=== PATIENT | female | born 1950 | race Caucasian/White ===

== ENCOUNTER → 2021-01-10 08:53 | Outpatient (CLI) | payer MEDICARE, OTHER, SELFPAY ==
--- NOTE | 2021-01-10 | DI.ECHO.S_ITS ---
[facility] +---------+ : : [address] : : : : [id number] : : : : Phone: [phone] Echocardiogram Report + + :Name: MAKENZIE COVARRUBIAS Study Date: 01/10/2021 Height: 65 in : :[facility] ReadingLocation: Weight: 197 lb : : Gender: Female BSA: 2.0 m2 : :: 1950 Age: 70 yrs BP: 151/97 mmHg: :Reason For Study: Aortic valve regurgitation : :Ordering Physician: STEPHANIE, : :JAMAR Performed By: Jaison Mohamud : :Referring: JMAAR BROWN : + + Interpretation Summary The left ventricle is normal in size and wall thickness. Left ventricular systolic function is normal. The ejection fraction is estimated to be 60-65%. There are no focal wall motion abnormalities. The right ventricle is normal in size and function. Pulmonary artery pressures cannot be estimated because of the lack of a measurable TR jet velocity but the IVC suggests a CVP of around 3 mmHg. The left atrium is borderline dilated. The right atrium is normal in size. There is no significant valvular heart disease. The aortic root is normal size. Procedure: A two-dimensional transthoracic echocardiogram with color flow and Doppler was performed. The study quality was technically adequate. There is no prior echocardiogram noted for this patient. The patient was in sinus rhythm with heart rates between 66-74 bpm during the exam. Left Ventricle: The left ventricle is normal in size and wall thickness. Left ventricular systolic function is normal. The ejection fraction is estimated to be 60-65%. There are no focal wall motion abnormalities. Diastolic function could not be accurately assessed due to contradictory data. Right Ventricle: The right ventricle is normal in size and function. Atria: The left atrium is borderline dilated. The right atrium is normal in size. There is no Doppler evidence for an interatrial shunt. Mitral Valve: There is mild to moderate mitral annular calcification. There is no mitral valve stenosis. There is trace mitral regurgitation. Aortic Valve: The aortic valve is normal in structure and function. There is trace aortic regurgitation. Tricuspid Valve: The tricuspid valve is normal in structure and function. There is a trace or physiologic amount of tricuspid regurgitation. Pulmonary artery pressures cannot be estimated because of the lack of a measurable TR jet velocity but the IVC suggests a CVP of around 3 mmHg. Pulmonic Valve: The pulmonic valve is not well visualized. There is no pulmonic valvular regurgitation. There is no significant valvular heart disease. Great Vessels: The aortic root is normal size. The ascending aorta could not be visualized. The IVC is of normal diameter and collapses greater than 50% with a sniff. This suggests a low right atrial pressure of 3 mm Hg. Pericardium/ Pleura There is no pericardial effusion. There is no pleural effusion. MMode/2D Measurements & Calculations LVIDd: 5.2 cm LVOT diam: 2.1 cm LVIDs: 3.7 cm Ao root diam: 2.8 cm FS: 28.6 % IVSd: 1.0 cm LVPWd: 1.0 cm LV lord. diameter/BSA (cm/m^2): 2.6 LV sys. diameter/BSA (cm/m^2): 1.9 LA A2 area: 22.1 cm2 RA long axis: 4.0 cm LA A4 area: 19.7 cm2 RA area: 10.9 cm2 LA length (vol): 5.9 cm RA vol: 25.0 ml LA vol: 62.5 ml RA : 12.7 ml/m2 LA vol index: 31.8 ml/m2 TAPSE: 1.9 cm Doppler Measurements & Calculations Ao V2 max: 185.1 cm/sec LVOT Max Dave: 121.9 cm/sec Ao V2 mean: 127.4 cm/sec LV V1 max P.9 mmHg Ao max P.7 mmHg LV V1 VTI: 26.9 cm Ao mean P.3 mmHg SHANTANU(I,D): 2.5 cm2 Ao V2 VTI: 38.1 cm SHANTANU(V,D): 2.4 cm2 sev ratio: 0.71 SHANTANU indexed to BSA (cm^2/m^2): 1.3 MV E max dave: 126.7 cm/sec PA pr(Accel): 21.6 mmHg MV A max dave: 150.8 cm/sec MV E/A: 0.84 Med Peak E' Dave: 6.1 cm/sec E/E' med: 20.8 Lat Peak E' Dave: 10.3 cm/sec E/E' lat: 12.3 E/e' average: 16.6 MV dec time: 0.36 sec MVA(VTI): 2.1 cm2 MV V2 mean: 101.2 cm/sec SV(LVOT): 96.7 ml MV mean P.5 mmHg MV V2 VTI: 46.8 cm MV P1/2t-pr_phl: 110.6 msec Reading Physician:01:51 PM
== END ==
PROVIDERS: PCP Family Medicine; Referring Provider Family Medicine; Visit Provider Family Medicine
DX: I35.1 Nonrheumatic aortic (valve) insufficiency (principal); R00.2 Palpitations; R42 Dizziness and giddiness; R01.1 Cardiac murmur, unspecified
CPT/HCPCS: 93306

== ENCOUNTER → 2021-03-31 15:35 | Outpatient (CLI) | payer MEDICARE, OTHER, SELFPAY ==
--- NOTE | 2021-03-31 15:38 | DI.US.S_ITS ---
PROCEDURE: US PERIPH VENOUS LOW EXTREM RT INDICATIONS: RULE OUT DVT TECHNIQUE: Real-time imaging, as well as color and pulse Doppler interrogation, were performed of the lower extremity deep veins from the inguinal ligament to the popliteal fossa. COMPARISON: None. FINDINGS: The common femoral, femoral and popliteal veins are normally compressible, and free of intraluminal thrombus. Color and pulse Doppler demonstrate normal phasic intraluminal flow. There is normal augmentation response to distal compression maneuver. Prominent right inguinal lymph no measures 2.5 x 1.3 x 1.4 cm in size is seen. Soft tissue edema in right calf region is noted. IMPRESSION: 1. No evidence of DVT in visualized right lower extremity veins. 2. Right calf edema. Prominent right inguinal lymph node which may represent reactive inflammatory lymph node. Dictated by: Marcus Jang M.D. on 03/31/2021 at 16:43 Approved by: Marcus Jang M.D. on 03/31/2021 at 16:43
== END ==
PROVIDERS: PCP Family Medicine; Referring Provider Physician Assistant; Visit Provider Physician Assistant
DX: R60.0 Localized edema (principal); R59.0 Localized enlarged lymph nodes
CPT/HCPCS: 93971

== ENCOUNTER → 2022-02-05 12:48 | Outpatient (CLI) | payer MEDICARE, OTHER, SELFPAY ==
--- NOTE | 2022-02-05 | DI.RAD.S_ITS ---
PROCEDURE: XR HIP W PEL IF DONE RT 2V INDICATIONS: Unspecified injury of right hip, subsequent encounter TECHNIQUE: AP pelvis with lateral view(s) of the right hip(s). COMPARISON: None. FINDINGS: Bones: Patient is status post bilateral total hip arthroplasty. Bilateral hip alignment is anatomic. No gross hardware loosening or failure. No acute fracture or dislocation. Degenerative disc disease in visualized lower lumbar spine is seen. Soft tissues: The visualized bowel gas pattern is normal. No suspicious soft tissue calcifications. IMPRESSION: Prior bilateral total hip arthroplasty. No right hip fracture or dislocation. No gross hardware complication. Dictated by: Marcus Jang M.D. on 02/05/2022 at 15:42 Approved by: Marcus Jang M.D. on 02/05/2022 at 15:43
== END ==
PROVIDERS: PCP Family Medicine; Referring Provider Student in an Organized Health Care Education/Training Program; Visit Provider Student in an Organized Health Care Education/Training Program
DX: M51.36 Other intervertebral disc degeneration, lumbar region (principal); S79.911D Unspecified injury of right hip, subsequent encounter; Z96.643 Presence of artificial hip joint, bilateral
CPT/HCPCS: 73502

== ENCOUNTER → 2022-02-12 14:07 | Outpatient (CLI) | payer MEDICARE, OTHER, SELFPAY ==
--- NOTE | 2022-02-12 | DI.CT.S_ITS ---
PROCEDURE: CT PEL WO CON INDICATIONS: Pain in right hip TECHNIQUE: Noncontrast 3 mm axial sections acquired through the bony pelvis, with coronal and sagittal reformatting. COMPARISON: [facility], CT, CT ABD PELVIS W CON, 02/04/2016, 18:13. [facility], CR, XR HIP W PEL IF DONE RT 2V, 02/05/2022, 12:56. FINDINGS: Image quality: Excellent. Bones: Postsurgical changes are seen from bilateral hip arthroplasties with associated metal artifact. No signs of hardware loosening or perihardware fracture. Hypertrophic ossifications are seen at the greater trochanter. A remote prior healed fracture is seen at the right inferior pubic ramus. Severe degenerative changes are seen in the included lower lumbar spine. There is a questionable fracture at the left transverse process of L5 (image 17 of series 2). Soft tissues: Chondrocalcinosis is noted at the pubic symphysis. No large joint effusion or periarticular mass is seen. There is severe fatty infiltration of the bilateral gluteus medius and minimus muscles. The musculature surrounding the hips is otherwise normal in bulk. IMPRESSION: 1. Postsurgical changes from bilateral hip arthroplasties. No acute hardware complication or perihardware fracture. No significant right hip effusion or periarticular mass. 2. Nondisplaced fracture of the left transverse process of the L5 vertebra seen on large [id number] axial images only, which is of uncertain age. Dictated by: Wade Power M.D. on 02/12/2022 at 15:45 Approved by: Wade Power M.D. on 02/12/2022 at 15:56
== END ==
PROVIDERS: PCP Family Medicine; Referring Provider Registered Nurse; Visit Provider Registered Nurse
DX: M25.551 Pain in right hip (principal); M11.259 Other chondrocalcinosis, unspecified hip; Z96.643 Presence of artificial hip joint, bilateral
CPT/HCPCS: 72192

== ENCOUNTER 2022-10-27 15:31 | Emergency (ER) | payer MEDICARE, OTHER, SELFPAY ==
[2022-10-27] VITALS (63 sets, daily range): BP systolic 90–130; BP diastolic 52–82; PULSE 55–177; RESP 11–30; TEMP 36.6; O2SAT 94–100; BMI 35.7
--- NOTE | 2022-10-27 15:50 | DI.RAD.S_ITS ---
PROCEDURE: XR CHEST 1V INDICATIONS: Shortness of breath TECHNIQUE: One view of the chest was acquired. COMPARISON: None. FINDINGS: Surgical changes and devices: None. Lungs and pleura: Lungs are clear. No pleural effusions or pneumothorax. Mediastinum: Mediastinal contours appear normal. Heart size is enlarged. Bones and chest wall: No suspicious bony lesions. Overlying soft tissues appear unremarkable. IMPRESSION: No acute cardiopulmonary process. Dictated by: Irving Blount M.D. on 10/27/2022 at 16:10 Approved by: Irving Blount M.D. on 10/27/2022 at 16:11
[2022-10-27 16:09] LABS: Add Manual Diff / Slide Review NO; Basophils Absolute Auto 100 /uL (0-100); Basophils Percent Auto 0.8 % (0-2); Eosinophils Absolute Auto 100 /uL (0-450); Eosinophils Percent Auto 1.5 % (2-4); Hematocrit 37.4 % (36-46); Hemoglobin 12.4 g/dL (12.0-16.0); Lymphocytes Absolute Auto 1000 /uL (1100-4500); Lymphocytes Percent Auto 13.8 % (25-40); Mean Corpuscular HGB Conc 33.2 % (30-36); Mean Corpuscular Hemoglobin 28.8 PG (26-34); Mean Corpuscular Volume 86.9 fL (80-100); Monocytes Absolute Auto 500 /uL (0-900); Monocytes Percent Auto 7.3 % (3-14); Neutrophils Absolute Auto 5400 /uL (1500-7000); Neutrophils Percent Auto 76.6 % (50-75); Platelet Count 198 X10^3/uL (150-400); White Blood Cell Count 7.1 X10^3/uL (4.5-11.0)
[2022-10-27 16:12] LABS: INR 1.6 (0.9-1.3); Prothrombin Time 18.1 SECONDS (10.1-12.7)
[2022-10-27 16:17] LABS: Lactate (Lactic Acid) 0.9 mmol/L (0.7-2.1)
[2022-10-27 16:18] LABS: Alanine Aminotransferase 22 IU/L (<35); Albumin 3.6 g/dL (3.5-5.0); Albumin Globulin Ratio 1.3 (1.0-2.8); Alkaline Phosphatase 55 U/L (38-126); Aspartate Aminotransferase 25 IU/L (14-36); BUN Creatinine Ratio 17.8 (6-22); Bilirubin Total 0.5 mg/dL (0.2-1.3); Blood Urea Nitrogen 23 mg/dL (7-17); Calcium 8.6 mg/dL (8.4-10.2); Carbon Dioxide 23 mmol/L (22-32); Chloride 106 mmol/L (98-107); Estimated Glomerular Filt Rate 44 mL/min (>60); Globulin 2.8 g/dL (1.7-4.1); Glucose 103 mg/dL (80-110); HEMOLYSIS < 15 (0-50); Potassium 4.5 mmol/L (3.4-5.1); Sodium 136 mmol/L (137-145); Total Protein 6.4 g/dL (6.3-8.2)
--- NOTE | 2022-10-27 16:20 | ED_ITS ---
HPI - General Adult General Chief complaint: Shortness of Breath/Dyspnea Stated complaint: wheezing, congestion, short of breath Time Seen by Provider: 10/27/22 15:44 Source: patient Mode of arrival: Ambulatory Limitations: no limitations History of Present Illness HPI narrative: Patient is a 72-year-old female. History of wheezing and congestion and shortness of breath. She does have a history of atrial fibrillation. She states she is not having chest pain. No lightheadedness. Does not specifically feel her heart beating fast. She does have a history of asthma. She has been using her inhalers at home. No fevers. Does have a productive cough. Patient is on anticoagulation. She states she is been on it for several years. Has not missed a dose in the past month. Takes it 2 times a day. Related Data Previous Rx's Medication Instructions Recorded albuterol sulfate 90 mcg/actuation 2 puff inhalation Q4-6H PRN 10/27/22 aerosol inhaler shortness of breath or wheezing #8.5 grams azithromycin 250 mg tablet See Rx Instructions PO .COMPLEX #6 10/27/22 tabs prednisone 20 mg tablet 20 mg PO DAILY 7 days #7 tabs 10/27/22 Allergies Allergy/AdvReac Type Severity Reaction Status Date / Time Penicillins Allergy Verified 10/27/22 16:03 Sulfa (Sulfonamide Allergy Verified 10/27/22 16:03 Antibiotics) Review of Systems Review of Systems ROS Unobtainable: All systems reviewed & are unremarkable except as noted in HPI and below Exam Initial Vital Signs Initial Vital Signs: Vital Signs Temperature 97.9 F 10/27/22 15:45 Pulse Rate 170 H 10/27/22 15:45 Respiratory Rate 16 10/27/22 15:45 Blood Pressure 129/70 10/27/22 15:45 Pulse Oximetry 98 10/27/22 15:45 Oxygen Delivery Method Room Air 10/27/22 15:45 Const General: cooperative, comfortable and No ill appearing HENNC Head: normal to inspection and normocephalic Resp Effort & Inspection: normal respiratory effort and tachypneic Auscultation: wheezes Cardio Rate: tachycardic Rhythm: abnormal rhythm GI Inspection: normal to inspection Skin General: no rashes or lesions noted Neuro General: patient alert and moves all extremities Extrem General: normal to inspection and capillary refill normal Procedures Cardioversion Consent Signed: Yes Indication: Atrial fibrillation Stability: Stable Number of attempts (shocks): 3 Joules used: 120, 150 and 200 Cardiac rhythm post-cardioversion: Sinus rhythm Procedural Sedation Consent signed: Yes Time out performed: Yes Indication: cardioversion ASA Class: III Mallampati Airway Classification: Class II Preparation: air sampling and monitoring applied, pulse oximeter, capnometry used, supplemental O2 applied, suction/airway equipment at bedside and IV secured Fentanyl: IV Fentanyl dose (mcg): 12 IV Propofol dose (mg): 60 Intraservice time/total sedation time (min): 15 ED Sedation Level: Moderate (Concious) Patient Tolerated Procedure: Well Complications: none Course Orders Ordered: ED Orders 10/27/22 15:50 XR chest 1V Stat EKG-12 Lead Stat Measure peak expiratory flow ONCE RT Consult Eval and Treat NOW 10/27/22 16:00 Complete Blood Count AUTO DIFF Stat Comprehensive Metabolic Panel Stat Lactate (Lactic Acid) Stat NT-proBNP (BNP-Adult 18+) Stat Prothrombin Time INR Stat Troponin I Stat 10/27/22 16:15 COVID19 -Nasal RAPID Stat 10/27/22 16:55 EKG-12 Lead Routine Albuterol (Albuterol 2.5 Mg/3 Ml Neb (Adult)) 2.5 mg INH [id number] PRN PRN Reason: Shortness Of Breath Last Admin: 10/27/22 17:02 Dose: 2.5 mg Documented By: SAT Sodium Chloride (Normal Saline 0.9%) 1,000 mls @ 125 mls/hr IV CONT BRICE Last Infusion: 10/27/22 17:24 Dose: 0 mls/hr Documented By: Admin: 10/27/22 16:30 Dose: 125 mls/hr Documented By: SPF Discontinued Medications Fentanyl (Fentanyl 100 Mcg/2 Ml Inj) 12.5 mcg IV NOW ONE Stop: 10/27/22 16:22 Last Admin: 10/27/22 16:43 Dose: 12.5 mcg Documented By: SPF Propofol (Propofol 200 Mg/20 Ml Vial) 100 mg 1 mg/kg (100 mg) IV NOW ONE Stop: 10/27/22 16:22 Last Admin: 10/27/22 17:22 Dose: 60 mg Documented By: BHARATI Vital Signs Vital signs: Vital Signs - 8 hr 10/27/22 15:45 10/27/22 17:07 10/27/22 17:12 Temperature 97.9 F Pulse Rate 170 H 166 H 57 L Respiratory Rate 16 20 16 Blood Pressure 129/70 Pulse Oximetry 98 100 Oxygen Delivery Method Room Air Nasal Cannula Oxygen Flow Rate 2 10/27/22 16:00 10/27/22 16:01 10/27/22 16:01 Temperature Pulse Rate 164 H 168 H Respiratory Rate 25 H Blood Pressure 128/67 Pulse Oximetry 97 97 Oxygen Delivery Method Room Air Oxygen Flow Rate 10/27/22 16:02 10/27/22 16:04 10/27/22 16:06 Temperature Pulse Rate 165 H 158 H 159 H Respiratory Rate 20 19 19 Blood Pressure Pulse Oximetry 97 95 96 Oxygen Delivery Method Oxygen Flow Rate 10/27/22 16:08 10/27/22 16:10 10/27/22 16:12 Temperature Pulse Rate 170 H 157 H 162 H Respiratory Rate 20 21 21 Blood Pressure Pulse Oximetry 96 96 96 Oxygen Delivery Method Room Air Oxygen Flow Rate 10/27/22 16:14 10/27/22 16:16 10/27/22 16:18 Temperature Pulse Rate 159 H 165 H 165 H Respiratory Rate 24 22 23 Blood Pressure Pulse Oximetry 97 97 96 Oxygen Delivery Method Oxygen Flow Rate 10/27/22 16:20 10/27/22 16:22 10/27/22 16:24 Temperature Pulse Rate 167 H 168 H 165 H Respiratory Rate 27 H 26 H 23 Blood Pressure Pulse Oximetry 97 96 96 Oxygen Delivery Method Room Air Oxygen Flow Rate 10/27/22 16:25 10/27/22 16:25 10/27/22 16:28 Temperature Pulse Rate 165 H 169 H Respiratory Rate 26 H 18 Blood Pressure 130/82 Pulse Oximetry 98 99 Oxygen Delivery Method Oxygen Flow Rate 10/27/22 16:30 10/27/22 16:30 10/27/22 16:32 Temperature Pulse Rate 157 H 164 H Respiratory Rate 23 28 H Blood Pressure 110/70 Pulse Oximetry 99 99 Oxygen Delivery Method Room Air Oxygen Flow Rate 10/27/22 16:34 10/27/22 16:35 10/27/22 16:35 Temperature Pulse Rate 167 H 152 H Respiratory Rate 22 19 Blood Pressure 97/66 Pulse Oximetry 99 99 Oxygen Delivery Method Oxygen Flow Rate 10/27/22 16:36 10/27/22 16:38 10/27/22 16:40 Temperature Pulse Rate 177 H 162 H Respiratory Rate 27 H 30 H Blood Pressure 104/72 Pulse Oximetry 97 97 Oxygen Delivery Method Room Air Oxygen Flow Rate 10/27/22 16:40 10/27/22 16:42 10/27/22 16:44 Temperature Pulse Rate 161 H 172 H Respiratory Rate 17 20 Blood Pressure 99/70 Pulse Oximetry 98 99 Oxygen Delivery Method Nasal Cannula Oxygen Flow Rate 2 10/27/22 16:44 10/27/22 16:46 10/27/22 16:47 Temperature Pulse Rate 165 H 156 H 105 H Respiratory Rate 15 16 20 Blood Pressure Pulse Oximetry 100 100 95 Oxygen Delivery Method Nasal Cannula Oxygen Flow Rate 2 10/27/22 16:47 10/27/22 16:48 10/27/22 16:49 Temperature Pulse Rate 172 H Respiratory Rate 19 Blood Pressure 99/56 L 95/59 L Pulse Oximetry 95 Oxygen Delivery Method Nasal Cannula Oxygen Flow Rate 2 10/27/22 16:49 10/27/22 16:50 10/27/22 16:52 Temperature Pulse Rate 102 H 55 L 57 L Respiratory Rate 20 17 17 Blood Pressure Pulse Oximetry 95 95 95 Oxygen Delivery Method Nasal Cannula Oxygen Flow Rate 2 10/27/22 16:53 10/27/22 16:54 10/27/22 16:56 Temperature Pulse Rate 61 Respiratory Rate 22 Blood Pressure 91/52 L 103/57 L Pulse Oximetry 97 Oxygen Delivery Method Nasal Cannula Oxygen Flow Rate 2 10/27/22 16:56 10/27/22 16:58 10/27/22 17:00 Temperature Pulse Rate 74 57 L Respiratory Rate 25 H 15 Blood Pressure 90/52 L Pulse Oximetry 98 99 Oxygen Delivery Method Oxygen Flow Rate 10/27/22 17:00 10/27/22 17:02 10/27/22 17:04 Temperature Pulse Rate 56 L 58 L 59 L Respiratory Rate 21 17 19 Blood Pressure Pulse Oximetry 100 100 100 Oxygen Delivery Method Nasal Cannula Nasal Cannula Room Air Oxygen Flow Rate 2 2 10/27/22 17:06 10/27/22 17:06 10/27/22 17:08 Temperature Pulse Rate 57 L 56 L Respiratory Rate 14 11 L Blood Pressure 95/54 L Pulse Oximetry 100 99 Oxygen Delivery Method Oxygen Flow Rate 10/27/22 17:10 10/27/22 17:10 10/27/22 17:20 Temperature Pulse Rate 56 L 64 Respiratory Rate 13 18 Blood Pressure 99/58 L Pulse Oximetry 100 98 Oxygen Delivery Method Room Air Oxygen Flow Rate 10/27/22 17:21 10/27/22 17:21 Temperature Pulse Rate 57 L Respiratory Rate 18 Blood Pressure 110/56 L Pulse Oximetry 99 Oxygen Delivery Method Room Air Oxygen Flow Rate Medical Decision Making Lab Data Lab results reviewed: Yes I reviewed the patient's lab results. 10/27/22 16:00 10/27/22 16:00 Labs: Lab Results 10/27/22 10/27/22 10/27/22 Range/Units 16:00 16:00 16:00 WBC 7.1 (4.5-11.0) X10^3/uL RBC 4.30 (4.0-5.2) X10^6/uL Hgb 12.4 (12.0-16.0) g/dL Hct 37.4 (36-46) % MCV 86.9 (80-100) fL MCH 28.8 (26-34) PG MCHC 33.2 (30-36) % RDW 15.0 H (11.6-14.8) % Plt Count 198 (150-400) X10^3/uL Neut % (Auto) 76.6 H (50-75) % Lymph % (Auto) 13.8 L (25-40) % [place] % (Auto) 7.3 (3-14) % Eos % (Auto) 1.5 L (2-4) % Baso % (Auto) 0.8 (0-2) % Neut # (Auto) 5400 (8945-1623) /uL Lymph # (Auto) 1000 L (5309-4048) /uL [place] # (Auto) 500 (0-900) /uL Eos # (Auto) 100 (0-450) /uL Baso # (Auto) 100 (0-100) /uL PT 18.1 H (10.1-12.7) SECONDS INR 1.6 H (0.9-1.3) Sodium 136 L (137-145) mmol/L Potassium 4.5 (3.4-5.1) mmol/L Chloride 106 (98-107) mmol/L Carbon Dioxide 23 (22-32) mmol/L BUN 23 H (7-17) mg/dL Creatinine 1.29 H (0.52-1.04) mg/dL Estimated GFR 44 L (>60) mL/min BUN/Creatinine Ratio 17.8 (6-22) Glucose 103 (80-110) mg/dL Lactate (0.7-2.1) mmol/L Calcium 8.6 (8.4-10.2) mg/dL Total Bilirubin 0.5 (0.2-1.3) mg/dL AST 25 (14-36) IU/L ALT 22 (<35) IU/L Alkaline Phosphatase 55 (38-126) U/L Troponin I < 0.012 (0.01-0.034) ng/mL NT-Pro-B Natriuret Pep 6650 H (<125) pg/mL Total Protein 6.4 (6.3-8.2) g/dL Albumin 3.6 (3.5-5.0) g/dL Globulin 2.8 (1.7-4.1) g/dL Albumin/Globulin Ratio 1.3 (1.0-2.8) SARS-CoV-2 (PCR) (Negative) 10/27/22 10/27/22 Range/Units 16:00 16:15 WBC (4.5-11.0) X10^3/uL RBC (4.0-5.2) X10^6/uL Hgb (12.0-16.0) g/dL Hct (36-46) % MCV (80-100) fL MCH (26-34) PG MCHC (30-36) % RDW (11.6-14.8) % Plt Count (150-400) X10^3/uL Neut % (Auto) (50-75) % Lymph % (Auto) (25-40) % [place] % (Auto) (3-14) % Eos % (Auto) (2-4) % Baso % (Auto) (0-2) % Neut # (Auto) (5966-0744) /uL Lymph # (Auto) (8844-8046) /uL [place] # (Auto) (0-900) /uL Eos # (Auto) (0-450) /uL Baso # (Auto) (0-100) /uL PT (10.1-12.7) SECONDS INR (0.9-1.3) Sodium (137-145) mmol/L Potassium (3.4-5.1) mmol/L Chloride (98-107) mmol/L Carbon Dioxide (22-32) mmol/L BUN (7-17) mg/dL Creatinine (0.52-1.04) mg/dL Estimated GFR (>60) mL/min BUN/Creatinine Ratio (6-22) Glucose (80-110) mg/dL Lactate 0.9 (0.7-2.1) mmol/L Calcium (8.4-10.2) mg/dL Total Bilirubin (0.2-1.3) mg/dL AST (14-36) IU/L ALT (<35) IU/L Alkaline Phosphatase (38-126) U/L Troponin I (0.01-0.034) ng/mL NT-Pro-B Natriuret Pep (<125) pg/mL Total Protein (6.3-8.2) g/dL Albumin (3.5-5.0) g/dL Globulin (1.7-4.1) g/dL Albumin/Globulin Ratio (1.0-2.8) SARS-CoV-2 (PCR) Negative (Negative) Point of Care Testing Test Results Not applicable Point of care testing: Point of Care Testing Test Results Not applicable Imaging Data Chest x-ray: Radiologist's Impression: PROCEDURE:? XR CHEST 1V ? INDICATIONS:? Shortness of breath ? TECHNIQUE:? One view of the chest was acquired.? ? COMPARISON:? None. ? FINDINGS:? ? Surgical changes and devices:? None.? ? Lungs and pleura:? Lungs are clear.? No pleural effusions or pneumothorax.? ? Mediastinum:? Mediastinal contours appear normal.? Heart size is enlarged.? ? Bones and chest wall:? No suspicious bony lesions.? Overlying soft tissues appear unremarkable.? ? IMPRESSION:? No acute cardiopulmonary process. ECG Data Attestation: I personally reviewed and interpreted this ECG as follows: Interpretation: Atrial fibrillation Ventricular rate 160 Normal QRS Normal QTC Nonspecific ST T wave changes Post cardioversion Sinus rhythm Ventricular rate is 60 PACs Normal QRS Normal QTC MDM Narrative Medical decision making narrative: Patient has bilateral wheezing. She is also in AFib with RVR. She is anticoagulated. Has been anticoagulated for the past month and longer. We discussed options to include rate control versus rhythm control. After this discussion the patient opted for cardioversion. She was sedated and cardioverted. She tolerated the procedure well. It did take 3 attempts in order for her to successfully remain in AFib. After the cardioversion she was given a nebulizer. States she does feel somewhat better. She has had a productive cough. Her chest x-ray is unremarkable. Given her presenting symptoms and the fact that she is had a productive cough and her underlying lung pathology of the plan abuse to put her on steroids for the next couple days. We will also treat with antibiotics. Will discharge patient home. Will hold on making any changes to her cardiac medications. She was given strict return precautions. She expressed understanding and agreement. Discharge Plan Departure Patient Disposition: Home Clinical Impression: Asthma with exacerbation, Atrial fibrillation Instructions: DI for Asthma -- Adult, DI for Cardioversion Activity Restrictions/Additional Instructions: I recommend that you continue to take all of your medications as directed. A prescription for an albuterol inhaler, steroids and an antibiotic was sent to the pharmacy of your choice. We start taking them as directed. I recommend you contact your primary doctor for follow-up. Return to the emergency department for new or worsening symptoms. Prescriptions: New prednisone 20 mg tablet 20 mg PO DAILY 7 Days Qty: 7 0RF azithromycin 250 mg tablet See Rx Instructions .ROUTE .COMPLEX Qty: 6 0RF Rx Instructions: For 250 mg dose pack: take 500 mg today (day 1), then 250 mg for 4 days (days 2-5) albuterol sulfate 90 mcg/actuation HFA aerosol inhaler 2 puff inhalation Q4-6H PRN (Reason: shortness of breath or wheezing) Qty: 8.5 0RF Referrals: Taco Antonio MD [Primary Care Provider] - Stand Alone Forms: Patient Portal/API
[2022-10-27 16:30] LABS: NT-proBNP (BNP-Adult 18+) 6650 pg/mL (<125); Troponin I < 0.012 ng/mL (0.01-0.034)
[2022-10-27] MEDS: SODIUM CHLORIDE 0.9% 1,000 ML 125 ML IV (16:30)
[2022-10-27] MEDS: fentaNYL 100 MCG/2 ML INJ 12.5 MCG IV (16:43)
[2022-10-27] MEDS: ALBUTEROL 2.5 MG/3 ML NEB (ADULT) INH (17:02)
[2022-10-27 17:20] LABS: COVID19 -Nasal RAPID Negative (Negative)
[2022-10-27] MEDS: propofoL 200 MG/20 ML VIAL 100 MG IV (17:22)
== END 2022-10-27 18:31 | disposition home or self-care (01) ==
PROVIDERS: Student in an Organized Health Care Education/Training Program; Emergency Provider Emergency Medicine; PCP Family Medicine
DX: J45.901 Unspecified asthma with (acute) exacerbation (principal); I48.91 Unspecified atrial fibrillation; Z79.01 Long term (current) use of anticoagulants; Z20.822 Contact with and (suspected) exposure to COVID-19
CPT/HCPCS: 36415; 71045; 80053; 83605; 83880; 84484; 85025; 85610; 87635; 92960; 93005; 94640; 96360; 99152; 99285; C9803; J2704; J3010; J7613

== ENCOUNTER 2022-11-14 07:35 | Emergency (ER) | payer MEDICARE, OTHER, SELFPAY ==
[2022-11-14] VITALS (34 sets, daily range): BP systolic 91–165; BP diastolic 54–113; PULSE 47–179; RESP 14–28; TEMP 36.1; O2SAT 93–100; BMI 36.2
--- NOTE | 2022-11-14 07:48 | DI.RAD.S_ITS ---
PROCEDURE: XR CHEST 1V INDICATIONS: SOB TECHNIQUE: One view of the chest was acquired. COMPARISON: [facility], CR, XR CHEST 1V, 10/27/2022, 15:56. FINDINGS: Surgical changes and devices: None. Lungs and pleura: Lungs are clear. No pleural effusions or pneumothorax. Mediastinum: Mediastinal contours appear normal. Unchanged cardiomegaly. Bones and chest wall: No suspicious bony lesions. Overlying soft tissues appear unremarkable. IMPRESSION: Unchanged cardiomegaly. No evidence acute pulmonary process. Dictated by: Walker Cade M.D. on 11/14/2022 at 8:10 Approved by: Walker Cade M.D. on 11/14/2022 at 8:11
--- NOTE | 2022-11-14 07:54 | ED_ITS ---
HPI - General Adult General Chief complaint: Shortness of Breath/Dyspnea Stated complaint: difficulty breathing Time Seen by Provider: 11/14/22 07:43 Source: patient Mode of arrival: Ambulatory History of Present Illness HPI narrative: 72-year-old female nonsmoker with history of asthma, AFib on Eliquis and recent cardioversion on October 27 presents with her in the chief complaint of increasing shortness of breath over the past day or so. She becomes more short of breath with exertion or speaking. She denies any increased shortness of breath while lying flat. She is a bit dizzy but denies nausea or vomiting. She has no chest pain or heaviness. She denies any fever, chills. She is had some dry cough but has had difficulty clearing sputum. She denies any change in her medications and has not missed any doses of her Eliquis at any point since it was prescribed Related Data Previous Rx's Medication Instructions Recorded albuterol sulfate 90 mcg/actuation 2 puff inhalation Q4-6H PRN 10/27/22 aerosol inhaler shortness of breath or wheezing #8.5 grams azithromycin 250 mg tablet See Rx Instructions PO .COMPLEX #6 10/27/22 tabs prednisone 20 mg tablet 20 mg PO DAILY #5 tabs 11/14/22 prednisone 20 mg tablet 20 mg PO DAILY #5 tabs 11/14/22 Allergies Allergy/AdvReac Type Severity Reaction Status Date / Time Penicillins Allergy Verified 11/14/22 07:52 Sulfa (Sulfonamide Allergy Verified 11/14/22 07:52 Antibiotics) Review of Systems Review of Systems Narrative: GENERAL: See HPI HEENT: Denies sinus pain, ear pain, sore throat, difficulty swallowing, dizziness. RESPIRATORY: See HPI CARDIOVASCULAR: See HPI GASTROINTESTINAL: Denies nausea, vomiting, abdominal pain, diarrhea, constipation, melena. : Denies dysuria, frequency, incontinence, hematuria, urinary retention. MUSCULOSKELETAL: denies weakness, joint pain, or bony pain SKIN: Denies rash, skin lesions, or other NEUROLOGIC: Denies weakness, headache, numbness, change in speech, confusion, seizures, incoordination. PSYCHIATRIC: No concerning psychosocial issues. 12 point review of systems is negative except for those stated above Patient History Social History Smoking Status: Never smoker Smoking Status: Never smoker alcohol intake frequency: holidays/special occasions only Substance Use Type: does not use Exam Narrative Exam Narrative: GENERAL: [72] year old patient appears stated age. Well-developed patient, in mild distress. HEAD: Atraumatic. Normocephalic. EYES: Pupils equal round and reactive. Extraocular motions intact. No scleral icterus. No injection or drainage. ENT: Nose without bleeding, purulent drainage. Throat without erythema, tonsillar hypertrophy or exudate. Airway patent. NECK: Trachea midline. Non tender CARDIOVASCULAR: Tachycardic and irregular rhythm without murmurs, gallops, or rubs. RESPIRATORY: Clear to auscultation. Breath sounds equal bilaterally. No wheezes, rales, or rhonchi. GASTROINTESTINAL: Abdomen soft, non-tender, nondistended. EXTREMITIES: No edema or joint tenderness. BACK: Nontender without deformity or crepitance. No flank tenderness. NEURO: AOx3. SKIN: No rash or erythema of visible areas Initial Vital Signs Initial Vital Signs: Vital Signs Pulse Rate 83 11/14/22 07:41 Pulse Oximetry 98 11/14/22 07:41 Procedures Cardioversion Consent Signed: Yes Indication: Rapid AFib Stability: Stable Number of attempts (shocks): 3 Joules used: 120, 150 and 200 Cardiac rhythm post-cardioversion: NSR with sinus arrhythmia Procedural Sedation Consent signed: Yes Time out performed: Yes Indication: cardioversion ASA Class: II Mallampati Airway Classification: Class II Preparation: rn cardiac rehab applied, pulse oximeter, capnometry used, suppl emental O2 applied, suction/airway equipment at bedside and IV secured IV Propofol dose (mg): 80 Intraservice time/total sedation time (min): 10 ED Sedation Level: Moderate (Concious) Patient Tolerated Procedure: Well Complications: none Course Orders Ordered: ED Orders 11/14/22 07:48 XR chest 1V Stat EKG-12 Lead Stat 11/14/22 07:55 Complete Blood Count AUTO DIFF Stat Comprehensive Metabolic Panel Stat Lipase Stat MAG [Magnesium] Stat NT-proBNP (BNP-Adult 18+) Stat Procalcitonin Stat Prothrombin Time INR Stat Troponin & CK Cardiac Panel Stat 11/14/22 08:51 EKG-12 Lead Routine Sodium Chloride (Normal Saline 0.9%) 1,000 mls @ 150 mls/hr IV CONT BRICE Last Admin: 11/14/22 07:57 Dose: 150 mls/hr Documented By: RB Discontinued Medications Albuterol/Ipratropium (Albuterol/Ipratropium 3 Ml Ampul) 3 ml INH NOW ONE Stop: 11/14/22 07:48 Last Admin: 11/14/22 10:20 Dose: 3 ml Aspirin (Aspirin 81 Mg Chew Tab) 324 mg PO NOW ONE Stop: 11/14/22 07:48 Last Admin: 11/14/22 08:01 Dose: 324 mg Documented By: AT Diltiazem HCl (Diltiazem 5 Mg/Ml Sdv) 20 mg IV NOW ONE Stop: 11/14/22 07:55 Last Admin: 11/14/22 08:02 Dose: 20 mg Documented By: AT Methylprednisolone (Methylprednisolone 125 Mg/2 Ml Vial) 125 mg IV NOW ONE Stop: 11/14/22 07:48 Last Admin: 11/14/22 10:19 Dose: 125 mg Propofol (Propofol 200 Mg/20 Ml Vial) 100 mg 1 mg/kg (100 mg) IV NOW ONE Stop: 11/14/22 08:19 Last Admin: 11/14/22 08:41 Dose: 80 mg Documented By: AT Reevaluation(s) Reevaluation #1: cardizem 20mg results in some decreased HR into the low 100s, still AFib. SOB improved. Patient consented for procedural sedation and cardioversion. Time: 08:35 Vital Signs Vital signs: Vital Signs - 8 hr 11/14/22 07:45 11/14/22 08:02 11/14/22 07:41 Temperature 97 F L Pulse Rate 115 H 179 H 83 Respiratory Rate 28 H Blood Pressure 165/113 H 148/93 H Pulse Oximetry 94 98 Oxygen Delivery Method Room Air Oxygen Flow Rate 11/14/22 07:57 11/14/22 07:57 11/14/22 08:00 Temperature Pulse Rate 178 H 178 H Respiratory Rate 22 19 Blood Pressure 147/79 H Pulse Oximetry 98 98 Oxygen Delivery Method Oxygen Flow Rate 11/14/22 08:01 11/14/22 08:01 11/14/22 08:07 Temperature Pulse Rate 176 H Respiratory Rate 22 Blood Pressure 148/93 H 133/85 Pulse Oximetry 98 Oxygen Delivery Method Oxygen Flow Rate 11/14/22 08:07 11/14/22 08:10 11/14/22 08:10 Temperature Pulse Rate 169 H 119 H Respiratory Rate 20 19 Blood Pressure 126/73 Pulse Oximetry 97 97 Oxygen Delivery Method Oxygen Flow Rate 11/14/22 08:15 11/14/22 08:15 11/14/22 08:20 Temperature Pulse Rate 102 H 99 H Respiratory Rate 18 18 Blood Pressure 117/59 L Pulse Oximetry 96 95 Oxygen Delivery Method Room Air Oxygen Flow Rate 11/14/22 08:20 11/14/22 08:25 11/14/22 08:25 Temperature Pulse Rate 107 H Respiratory Rate 19 Blood Pressure 99/64 134/79 Pulse Oximetry 96 Oxygen Delivery Method Room Air Oxygen Flow Rate 11/14/22 08:30 11/14/22 08:35 11/14/22 08:35 Temperature Pulse Rate 116 H 111 H Respiratory Rate 26 H 16 Blood Pressure 119/69 Pulse Oximetry 98 Oxygen Delivery Method Room Air Oxygen Flow Rate 11/14/22 08:40 11/14/22 08:40 11/14/22 08:45 Temperature Pulse Rate 116 H Respiratory Rate 24 Blood Pressure 117/61 105/57 L Pulse Oximetry 98 Oxygen Delivery Method Oxygen Flow Rate 11/14/22 08:45 11/14/22 08:50 11/14/22 08:50 Temperature Pulse Rate 56 L 69 Respiratory Rate 19 28 H Blood Pressure 97/55 L Pulse Oximetry 95 96 Oxygen Delivery Method Nasal Cannula Oxygen Flow Rate 3 11/14/22 08:56 11/14/22 08:56 11/14/22 09:00 Temperature Pulse Rate 50 L Respiratory Rate 22 Blood Pressure 91/54 L 94/62 Pulse Oximetry 98 Oxygen Delivery Method Room Air Oxygen Flow Rate 11/14/22 09:00 11/14/22 09:05 11/14/22 09:05 Temperature Pulse Rate 49 L 50 L Respiratory Rate 18 17 Blood Pressure 98/61 Pulse Oximetry 96 94 Oxygen Delivery Method Room Air Oxygen Flow Rate 11/14/22 09:10 11/14/22 09:10 11/14/22 10:21 Temperature Pulse Rate 48 L 49 L Respiratory Rate 18 16 Blood Pressure 102/63 Pulse Oximetry 93 99 Oxygen Delivery Method Room Air Room Air Oxygen Flow Rate 11/14/22 09:15 11/14/22 09:15 11/14/22 09:21 Temperature Pulse Rate 49 L 49 L Respiratory Rate 15 18 Blood Pressure 101/70 Pulse Oximetry 95 96 Oxygen Delivery Method Oxygen Flow Rate 11/14/22 09:21 11/14/22 09:26 11/14/22 09:26 Temperature Pulse Rate 47 L Respiratory Rate 15 Blood Pressure 99/69 106/62 Pulse Oximetry 97 Oxygen Delivery Method Oxygen Flow Rate 11/14/22 09:30 11/14/22 09:30 11/14/22 09:36 Temperature Pulse Rate 48 L 49 L Respiratory Rate 15 15 Blood Pressure 116/71 Pulse Oximetry 97 96 Oxygen Delivery Method Oxygen Flow Rate 11/14/22 09:36 11/14/22 09:40 11/14/22 09:40 Temperature Pulse Rate 48 L Respiratory Rate 15 Blood Pressure 110/63 109/66 Pulse Oximetry 95 Oxygen Delivery Method Oxygen Flow Rate 11/14/22 09:46 11/14/22 09:46 11/14/22 09:56 Temperature Pulse Rate 47 L 47 L Respiratory Rate 17 16 Blood Pressure 108/59 L Pulse Oximetry 96 97 Oxygen Delivery Method Oxygen Flow Rate 11/14/22 09:56 11/14/22 10:00 11/14/22 10:00 Temperature Pulse Rate 47 L Respiratory Rate 16 Blood Pressure 106/67 119/77 Pulse Oximetry 99 Oxygen Delivery Method Room Air Oxygen Flow Rate 11/14/22 10:13 11/14/22 10:13 11/14/22 10:15 Temperature Pulse Rate 56 L 52 L Respiratory Rate 23 17 Blood Pressure 111/60 Pulse Oximetry 95 99 Oxygen Delivery Method Oxygen Flow Rate 11/14/22 10:15 11/14/22 10:30 11/14/22 10:31 Temperature Pulse Rate 49 L 51 L Respiratory Rate 14 19 Blood Pressure 131/63 Pulse Oximetry 100 100 Oxygen Delivery Method Oxygen Flow Rate 11/14/22 10:31 Temperature Pulse Rate Respiratory Rate Blood Pressure 133/64 Pulse Oximetry Oxygen Delivery Method Oxygen Flow Rate Medical Decision Making Lab Data 11/14/22 07:55 11/14/22 07:55 Labs: Lab Results 11/14/22 11/14/22 11/14/22 Range/Units 07:55 07:55 07:55 WBC 7.8 (4.5-11.0) X10^3/uL RBC 4.55 (4.0-5.2) X10^6/uL Hgb 13.3 (12.0-16.0) g/dL Hct 40.0 (36-46) % MCV 87.9 (80-100) fL MCH 29.1 (26-34) PG MCHC 33.2 (30-36) % RDW 14.8 (11.6-14.8) % Plt Count 187 (150-400) X10^3/uL Neut % (Auto) 77.3 H (50-75) % Lymph % (Auto) 13.8 L (25-40) % [place] % (Auto) 6.8 (3-14) % Eos % (Auto) 1.4 L (2-4) % Baso % (Auto) 0.7 (0-2) % Neut # (Auto) 6000 (1469-5659) /uL Lymph # (Auto) 1100 (4590-6224) /uL [place] # (Auto) 500 (0-900) /uL Eos # (Auto) 100 (0-450) /uL Baso # (Auto) 100 (0-100) /uL PT 22.3 H (10.1-12.7) SECONDS INR 1.9 H (0.9-1.3) Sodium (137-145) mmol/L Potassium (3.4-5.1) mmol/L Chloride (98-107) mmol/L Carbon Dioxide (22-32) mmol/L BUN (7-17) mg/dL Creatinine (0.52-1.04) mg/dL Estimated GFR (>60) mL/min BUN/Creatinine Ratio (6-22) Glucose (80-110) mg/dL Calcium (8.4-10.2) mg/dL Magnesium (1.6-2.3) mg/dL Total Bilirubin (0.2-1.3) mg/dL AST (14-36) IU/L ALT (<35) IU/L Alkaline Phosphatase (38-126) U/L Total Creatine Kinase (30-135) U/L CK-MB (CK-2) CK-MB (CK-2) Rel Index Troponin I (0.01-0.034) ng/mL NT-Pro-B Natriuret Pep (<125) pg/mL Total Protein (6.3-8.2) g/dL Albumin (3.5-5.0) g/dL Globulin (1.7-4.1) g/dL Albumin/Globulin Ratio (1.0-2.8) Lipase (23-300) U/L Procalcitonin 0.06 (<0.5) ng/mL 11/14/22 11/14/22 Range/Units 07:55 07:55 WBC (4.5-11.0) X10^3/uL RBC (4.0-5.2) X10^6/uL Hgb (12.0-16.0) g/dL Hct (36-46) % MCV (80-100) fL MCH (26-34) PG MCHC (30-36) % RDW (11.6-14.8) % Plt Count (150-400) X10^3/uL Neut % (Auto) (50-75) % Lymph % (Auto) (25-40) % [place] % (Auto) (3-14) % Eos % (Auto) (2-4) % Baso % (Auto) (0-2) % Neut # (Auto) (1343-2108) /uL Lymph # (Auto) (7564-9399) /uL [place] # (Auto) (0-900) /uL Eos # (Auto) (0-450) /uL Baso # (Auto) (0-100) /uL PT (10.1-12.7) SECONDS INR (0.9-1.3) Sodium 140 (137-145) mmol/L Potassium 4.1 (3.4-5.1) mmol/L Chloride 107 (98-107) mmol/L Carbon Dioxide 26 (22-32) mmol/L BUN 29 H (7-17) mg/dL Creatinine 1.67 H (0.52-1.04) mg/dL Estimated GFR 32 L (>60) mL/min BUN/Creatinine Ratio 17.4 (6-22) Glucose 108 (80-110) mg/dL Calcium 9.0 (8.4-10.2) mg/dL Magnesium 2.0 (1.6-2.3) mg/dL Total Bilirubin 1.0 (0.2-1.3) mg/dL AST 35 (14-36) IU/L ALT 32 (<35) IU/L Alkaline Phosphatase 71 (38-126) U/L Total Creatine Kinase 73 (30-135) U/L CK-MB (CK-2) TNP CK-MB (CK-2) Rel Index TNP Troponin I 0.012 (0.01-0.034) ng/mL NT-Pro-B Natriuret Pep 60801 H (<125) pg/mL Total Protein 6.5 (6.3-8.2) g/dL Albumin 3.7 (3.5-5.0) g/dL Globulin 2.8 (1.7-4.1) g/dL Albumin/Globulin Ratio 1.3 (1.0-2.8) Lipase 125 (23-300) U/L Procalcitonin (<0.5) ng/mL Point of Care Testing Test Results Not applicable Point of care testing: Point of Care Testing Test Results Not applicable MDM Narrative Medical decision making narrative: CC: 72F with shortness of breath and rapid heart rate Complicating co-morbidities: Age, history of AFib Data collected from: Patient Medical records reviewed: Prior notes reviewed in our EMR Differential considered, but not limited to: Asthma versus COPD versus pneumonia versus rapid AFib versus CHF versus other Exam documented above, pertinent findings include: Tachycardic and irregular, some increased work of breathing though minimal, no wheezes, rales or rhonchi Lab Test results independently reviewed as above. Pertinent findings: Independently reviewed EKG as above Imaging studies independently reviewed: CXR without acute findings Treatments: ASA / Cardizem 20mg Re-evaluations: slowed but still in Afib, SOB is better Discussion: patient with increasing shortness of breath is found to be in a rapid atrial fibrillation. She is been taking her meds as directed and was given Cardizem that resulted in some rate control and associated symptomatic improvement but she remained elevated above her baseline heart rate and still in AFib. She was consented for procedural sedation and cardioversion which she tolerated well, after escalating shocks up to 200 joules she converted to a normal sinus rhythm initially in the upper 40s and then the upper 50s which is her baseline heart rate per prior visits. There are no lab abnormalities of note. She was ambulated about 1 hour after the cardioversion and did well though felt a little bit dizzy and a little bit short of breath desaturating to 88 or 89%. At this time she was given Solu-Medrol and respiratory therapy gave DuoNeb Disposition: see below, along with detailed discharge instructions that have been reviewed with patient as well as indications for ED re-evaluation and additional outpatient follow up Discharge Plan Departure Patient Disposition: Home Clinical Impression: Atrial fibrillation with RVR, Asthma exacerbation Instructions: Asthma -- Adult, DI for Atrial Fibrillation Activity Restrictions/Additional Instructions: *You have been diagnosed with [ rapid atrial fibrillation with procedural sedation (Propofol) and electrocardioversion] *What to do: *Please continue to take your regular medications as directed. [x ] Steroids sent to [facility] *Please follow up with your primary care provider in 2-3 days, call for an appointment. Let them know you were seen in the Emergency Department and that we ask that you be seen in follow up. We will electronically transmit a record of today's note if your PCP is in our system *Return to Emergency Department if you should have any new, worsening or concerning symptoms, such as [fever greater than 101 F, shaking chills, worsening pain, persistent vomiting or other bothersome symptoms] Prescriptions: New prednisone 20 mg tablet 20 mg PO DAILY Qty: 5 0RF Rx Instructions: administer with food or milk prednisone 20 mg tablet 20 mg PO DAILY Qty: 5 0RF Rx Instructions: administer with food or milk No Action azithromycin 250 mg tablet See Rx Instructions .ROUTE .COMPLEX Qty: 6 0RF Rx Instructions: For 250 mg dose pack: take 500 mg today (day 1), then 250 mg for 4 days (days 2-5) albuterol sulfate 90 mcg/actuation HFA aerosol inhaler 2 puff inhalation Q4-6H PRN (Reason: shortness of breath or wheezing) Qty: 8.5 0RF Referrals: Taco Antonio MD [Primary Care Provider] - Ignacia Goldberg DO [Physician] - Stand Alone Forms: Patient Portal/API
[2022-11-14] MEDS: SODIUM CHLORIDE 0.9% 1,000 ML 150 ML IV (07:57)
[2022-11-14] MEDS: ASPIRIN 81 MG CHEW TAB 324 MG PO (08:01)
[2022-11-14] MEDS: dilTIAZem 5 MG/ML SDV 20 MG IV (08:02)
[2022-11-14 08:08] LABS: Add Manual Diff / Slide Review NO; Basophils Absolute Auto 100 /uL (0-100); Basophils Percent Auto 0.7 % (0-2); Eosinophils Absolute Auto 100 /uL (0-450); Eosinophils Percent Auto 1.4 % (2-4); Hemoglobin 13.3 g/dL (12.0-16.0); Lymphocytes Absolute Auto 1100 /uL (1100-4500); Lymphocytes Percent Auto 13.8 % (25-40); Mean Corpuscular HGB Conc 33.2 % (30-36); Mean Corpuscular Hemoglobin 29.1 PG (26-34); Mean Corpuscular Volume 87.9 fL (80-100); Monocytes Absolute Auto 500 /uL (0-900); Monocytes Percent Auto 6.8 % (3-14); Neutrophils Absolute Auto 6000 /uL (1500-7000); Neutrophils Percent Auto 77.3 % (50-75); Platelet Count 187 X10^3/uL (150-400); Red Blood Cell Count 4.55 X10^6/uL (4.0-5.2); Red Cell Distribution Width 14.8 % (11.6-14.8); White Blood Cell Count 7.8 X10^3/uL (4.5-11.0)
[2022-11-14 08:12] LABS: INR 1.9 (0.9-1.3); Prothrombin Time 22.3 SECONDS (10.1-12.7)
[2022-11-14 08:16] LABS: Alanine Aminotransferase 32 IU/L (<35); Albumin 3.7 g/dL (3.5-5.0); Albumin Globulin Ratio 1.3 (1.0-2.8); Alkaline Phosphatase 71 U/L (38-126); Aspartate Aminotransferase 35 IU/L (14-36); BUN Creatinine Ratio 17.4 (6-22); Blood Urea Nitrogen 29 mg/dL (7-17); Carbon Dioxide 26 mmol/L (22-32); Chloride 107 mmol/L (98-107); Creatine Kinase 73 U/L (30-135); Estimated Glomerular Filt Rate 32 mL/min (>60); Globulin 2.8 g/dL (1.7-4.1); Glucose 108 mg/dL (80-110); HEMOLYSIS < 15 (0-50); Lipase 125 U/L (23-300); Potassium 4.1 mmol/L (3.4-5.1); Sodium 140 mmol/L (137-145); Total Protein 6.5 g/dL (6.3-8.2)
[2022-11-14 08:28] LABS: NT-proBNP (BNP-Adult 18+) 11900 pg/mL (<125); Troponin I 0.012 ng/mL (0.01-0.034)
[2022-11-14 08:34] LABS: Procalcitonin 0.06 ng/mL (<0.5)
[2022-11-14] MEDS: propofoL 200 MG/20 ML VIAL 100 MG IV (08:41)
[2022-11-14] MEDS: methylPREDNISolone 125 MG/2 ML VIAL IV (10:19)
[2022-11-14] MEDS: ALBUTEROL/IPRATROPIUM 3 ML AMPUL INH (10:20)
--- NOTE | 2022-11-14 10:25 | PC.NURSE ---
Pt assisted to bathroom. During ambulation became dixxy, light headed, and SOB w/ SPO2 88%. Dr. Guo informed.
== END 2022-11-14 11:00 | disposition home or self-care (01) ==
PROVIDERS: Emergency Provider Emergency Medicine; PCP Family Medicine
DX: I48.20 Chronic atrial fibrillation, unspecified (principal); Z79.01 Long term (current) use of anticoagulants; J45.901 Unspecified asthma with (acute) exacerbation
CPT/HCPCS: 36415; 71045; 80053; 82550; 83690; 83735; 83880; 84145; 84484; 85025; 85610; 92960; 93005; 94150; 94640; 96361; 96374; 96375; 99152; 99285; J2704; J2930

== ENCOUNTER → 2022-12-03 13:37 | Outpatient (CLI) | payer MEDICARE, OTHER, SELFPAY ==
--- NOTE | 2022-12-10 09:54 | PM.PFT.1 ---
Pulmonary Function Test Referral & Results Date Patient Seen: 12/03/22 Results: The spirometry demonstrates an FVC of 1.08 L which is 36% of predicted. The FEV1 was measured at 0.58 L which is 25% of predicted. The FEV1/FVC ratio was 54 which is 71% of predicted. Following the administration of bronchodilator there was a 57% improvement in FEV1 and a 220% improvement in FEF 25-75%. Lung volumes show an SVC of 2.33 L which is 80% of predicted. The diffusing capacity was measured at 16.45 which is 64% of predicted. No hemoglobin value was provided, so no correction for potential anemia could be made, if appropriate. The maximum voluntary ventilation was severely reduced Interpretation: This study demonstrates severe obstructive lung disease with FEV1 of less than 1 L. There is however evidence of significant benefit following bronchodilator as noted above The maybe a very mild reduction in lung volumes suggesting the possible presence of very mild restrictive lung disease There is also reduction in diffusing capacity suggesting moderate disease at the capillary alveolar level Clinical correlation suggested
== END ==
PROVIDERS: PCP Family Medicine; Referring Provider Student in an Organized Health Care Education/Training Program; Visit Provider Student in an Organized Health Care Education/Training Program
DX: R06.02 Shortness of breath (principal); J98.8 Other specified respiratory disorders
CPT/HCPCS: 94060; 94726; 94729

== ENCOUNTER 2022-12-21 17:35 | Inpatient (IN) | payer MEDICARE, OTHER, SELFPAY ==
[2022-12-21] VITALS (38 sets, daily range): BP systolic 91–137; BP diastolic 51–87; PULSE 71–144; RESP 14–26; TEMP 36.4–37.5; O2SAT 87–100; BMI 36.6
--- NOTE | 2022-12-21 18:07 | DI.RAD.S_ITS ---
PROCEDURE: XR CHEST 2V INDICATIONS: SOB TECHNIQUE: 2 views of the chest were acquired. COMPARISON: [facility], CR, XR CHEST 1V, 11/14/2022, 7:53. FINDINGS: Surgical changes and devices: None. Lungs and pleura: Lungs are clear. No pleural effusions or pneumothorax. Mediastinum: Mediastinal contours are normal. Heart size is enlarged. Bones and chest wall: No suspicious bony abnormalities. Soft tissues appear unremarkable. IMPRESSION: No acute process. Dictated by: Samuel Carrizales M.D. on 12/21/2022 at 18:46 Approved by: Samuel Carrizales M.D. on 12/21/2022 at 18:46
--- NOTE | 2022-12-21 18:14 | ED.EXTPRO ---
HPI - Extremity Problem General Chief complaint: Extremity Problem,Nontraumatic Stated complaint: eval heart function-medication dose new t-7 Time Seen by Provider: 12/21/22 18:05 Source: patient Mode of arrival: Wheelchair History of Present Illness HPI Narrative: 72-year-old female nonsmoker with history of asthma, atrial fibrillation on Eliquis and multiple recent cardioversions presents with her for evaluation at the request of her cardiology office. About 7 days ago she had her routine dosing of diltiazem doubled and soon thereafter she started developing increasing shortness of breath particularly with exertion and lying flat. She has swelling in both of her lower extremities and has gained upwards of 10 lb. She denies fever or chills. She denies runny nose, sore throat or cough. She states that she has been on Eliquis for 4 months or so and has not missed any doses. She states that she was just on ZIO patch and had been in AFib the majority of the time. Related Data Home Medications Medication Instructions Recorded Confirmed apixaban 5 mg tablet (Eliquis) 5 mg BID 12/21/22 12/21/22 diltiazem HCl 240 mg 240 mg PO BID 12/21/22 12/21/22 capsule,extended release 24 hr (Cardizem CD) escitalopram oxalate 5 mg tablet 5 mg PO DAILY 12/21/22 12/21/22 losartan 25 mg tablet 12.5 mg DAILY 12/21/22 12/21/22 Allergies Allergy/AdvReac Type Severity Reaction Status Date / Time Penicillins Allergy Verified 12/21/22 17:55 Sulfa (Sulfonamide Allergy Verified 12/21/22 17:55 Antibiotics) Review of Systems Review of Systems Narrative: GENERAL: Denies chills, fatigue, malaise, fever, sweats. HEENT: Denies sinus pain, ear pain, sore throat, difficulty swallowing, dizziness. RESPIRATORY: See HPI CARDIOVASCULAR: See HPI GASTROINTESTINAL: Denies nausea, vomiting, abdominal pain, diarrhea, constipation, melena. : Denies dysuria, frequency, incontinence, hematuria, urinary retention. MUSCULOSKELETAL: denies weakness, joint pain, or bony pain SKIN: Denies rash, skin lesions, or other NEUROLOGIC: Denies weakness, headache, numbness, change in speech, confusion, seizures, incoordination. PSYCHIATRIC: No concerning psychosocial issues. 12 point review of systems is negative except for those stated above Patient History Social History Smoking Status: Never smoker Smoking Status: Never smoker alcohol intake frequency: holidays/special occasions only Substance Use Type: does not use Exam Narrative Exam Narrative: GENERAL: [72] year old patient appears stated age. Well-developed patient, in mild distress. HEAD: Atraumatic. Normocephalic. EYES: Pupils equal round and reactive. Extraocular motions intact. No scleral icterus. No injection or drainage. ENT: Nose without bleeding, purulent drainage. Throat without erythema, tonsillar hypertrophy or exudate. Airway patent. NECK: Trachea midline. Non tender CARDIOVASCULAR: Tachycardic and irregular rhythm without murmurs, gallops, or rubs. RESPIRATORY: No significant work of breathing, faint crackles in bilateral bases GASTROINTESTINAL: Abdomen soft, non-tender, nondistended. EXTREMITIES: 2+ pitting edema bilateral lower extremities BACK: Nontender without deformity or crepitance. No flank tenderness. NEURO: AOx3. SKIN: No rash or erythema of visible areas Initial Vital Signs Initial Vital Signs: Vital Signs Temperature 99.2 F 12/21/22 17:55 Pulse Rate 103 H 12/21/22 17:55 Respiratory Rate 16 12/21/22 17:55 Blood Pressure 113/56 L 12/21/22 17:55 Pulse Oximetry 99 12/21/22 17:55 Oxygen Delivery Method Room Air 12/21/22 17:55 Procedures Cardioversion Consent Signed: Yes Indication: Rapid Afib Stability: Stable Number of attempts (shocks): 2 Joules used: 120 and 200 Cardiac rhythm post-cardioversion: AFib Procedural Sedation Consent signed: Yes Time out performed: Yes Indication: cardioversion Preparation: monitor car operator applied, pulse oximeter, capnometry used, supplemental O2 applied, suction/airway equipment at bedside and IV secured IV Propofol dose (mg): 80 Intraservice time/total sedation time (min): 12 ED Sedation Level: Moderate (Concious) Patient Tolerated Procedure: Well Complications: none Course Orders Ordered: ED Orders 12/21/22 18:06 EKG-12 Lead Stat 12/21/22 18:07 XR chest 2V Stat 12/21/22 18:17 Complete Blood Count AUTO DIFF Stat Comprehensive Metabolic Panel Stat Lactate (Lactic Acid) Stat Lipase Stat NT-proBNP (BNP-Adult 18+) Stat Procalcitonin Stat Prothrombin Time INR Stat Troponin & CK Cardiac Panel Stat 12/21/22 20:15 Blood Culture Stat 12/22/22 00:13 EC echo doppler complete Urgent Amiodarone HCl/Dextrose (Nexterone) 360 mg in 200 mls @ 16.7 mls/hr IV CONT BRICE; Protocol Stop: 12/22/22 12:20 Discontinued Medications Furosemide (Furosemide 40 Mg/4 Ml Vial) 40 mg IV NOW ONE Stop: 12/21/22 23:17 Last Admin: 12/21/22 23:47 Dose: 40 mg Documented By: SB Amiodarone HCl/Dextrose (Nexterone) 150 mg in 100 mls @ 600 mls/hr IV NOW ONE; Protocol Stop: 12/21/22 23:25 Last Admin: 12/22/22 00:15 Dose: Not Given Documented By: SB Amiodarone HCl/Dextrose (Nexterone) 150 mg in 100 mls @ 600 mls/hr IV NOW ONE; Protocol Stop: 12/21/22 23:59 Last Admin: 12/22/22 00:14 Dose: 200 mls/hr Documented By: SB Sodium Chloride (Normal Saline 0.9%) 500 mls @ 1,000 mls/hr IV BOLUS ONE Stop: 12/22/22 00:22 Last Infusion: 12/21/22 23:00 Dose: 0 mls/hr Documented By: Admin: 12/21/22 22:30 Dose: 1,000 mls/hr Documented By: SB Propofol (Propofol 200 Mg/20 Ml Vial) 100 mg 1 mg/kg (100 mg) IV NOW ONE Stop: 12/21/22 22:04 Last Admin: 12/21/22 22:25 Dose: 100 mg Documented By: BS Consultations Consultation #1: discussed with Dr. Giraldo (Cardiology). We share the opinion that she is appropriate for cardioversion, provided it is successful he recommends going back to prior dosing of Dilt along with diuresis Consultation #2: after failed electrocardioversion I called back, Dr. Giraldo recommends Amio load over 30 minutes followed by typical drip, diuresis, hospitalization, echo. Consultation #3: Dr. Jennings happy to accept patient on his service Vital Signs Vital signs: Vital Signs - 8 hr 12/21/22 17:55 12/21/22 18:09 12/21/22 18:12 Temperature 99.2 F Pulse Rate 103 H 71 Respiratory Rate 16 Blood Pressure 113/56 L 115/61 Pulse Oximetry 99 Oxygen Delivery Method Room Air Oxygen Flow Rate 12/21/22 18:12 12/21/22 18:40 12/21/22 19:00 Temperature Pulse Rate 128 H 103 H Respiratory Rate 19 18 Blood Pressure Pulse Oximetry 87 L 100 96 Oxygen Delivery Method Oxygen Flow Rate 12/21/22 19:30 12/21/22 19:52 12/21/22 19:52 Temperature Pulse Rate 97 H 99 H Respiratory Rate 16 17 Blood Pressure 137/78 Pulse Oximetry 96 98 Oxygen Delivery Method Room Air Oxygen Flow Rate 12/21/22 20:00 12/21/22 20:30 12/21/22 21:00 Temperature Pulse Rate 138 H 101 H 118 H Respiratory Rate 22 17 Blood Pressure Pulse Oximetry 98 98 98 Oxygen Delivery Method Oxygen Flow Rate 12/21/22 21:30 12/21/22 22:22 12/21/22 22:45 Temperature 99.5 F 97.6 F Pulse Rate 115 H 144 H 104 H Respiratory Rate 18 17 15 Blood Pressure 131/72 111/55 L Pulse Oximetry 97 97 96 Oxygen Delivery Method Room Air Oxygen Flow Rate 0 0 12/21/22 22:50 12/21/22 22:55 12/21/22 23:00 Temperature 98.5 F 98.3 F 98.6 F Pulse Rate 101 H 100 H 91 H Respiratory Rate 17 16 17 Blood Pressure 109/57 L 110/68 108/70 Pulse Oximetry 96 98 98 Oxygen Delivery Method Oxygen Flow Rate 0 0 0 12/21/22 23:05 12/21/22 21:39 12/21/22 21:39 Temperature 98.3 F Pulse Rate 100 H 109 H Respiratory Rate 18 Blood Pressure 115/57 L 127/78 Pulse Oximetry 98 97 Oxygen Delivery Method Oxygen Flow Rate 0 12/21/22 22:00 12/21/22 22:00 12/21/22 22:13 Temperature Pulse Rate 119 H 115 H Respiratory Rate 24 Blood Pressure 102/64 Pulse Oximetry 98 Oxygen Delivery Method Oxygen Flow Rate 12/21/22 22:13 12/21/22 22:15 12/21/22 22:15 Temperature Pulse Rate 137 H Respiratory Rate Blood Pressure 131/87 117/70 Pulse Oximetry Oxygen Delivery Method Room Air Oxygen Flow Rate 12/21/22 22:35 12/21/22 22:32 12/21/22 22:40 Temperature 98.4 F 98.4 F Pulse Rate 92 H 107 H 109 H Respiratory Rate 18 15 18 Blood Pressure 98/58 L 108/76 110/58 L Pulse Oximetry 95 96 96 Oxygen Delivery Method Oxygen Flow Rate 0 0 0 12/21/22 22:20 12/21/22 22:25 12/21/22 22:25 Temperature Pulse Rate 121 H Respiratory Rate Blood Pressure 131/72 96/51 L Pulse Oximetry 99 Oxygen Delivery Method Oxygen Flow Rate 12/21/22 22:26 12/21/22 22:26 12/21/22 22:28 Temperature Pulse Rate 129 H 130 H Respiratory Rate 18 19 Blood Pressure 91/59 L Pulse Oximetry 99 96 Oxygen Delivery Method Oxygen Flow Rate 12/21/22 22:28 12/21/22 22:30 12/21/22 22:30 Temperature Pulse Rate 113 H Respiratory Rate 18 Blood Pressure 95/55 L 95/68 Pulse Oximetry 95 Oxygen Delivery Method Oxygen Flow Rate 12/21/22 22:32 12/21/22 22:32 12/21/22 22:33 Temperature Pulse Rate 108 H 108 H Respiratory Rate 19 18 Blood Pressure 108/76 Pulse Oximetry 95 96 Oxygen Delivery Method Oxygen Flow Rate 12/21/22 22:33 12/21/22 22:35 12/21/22 22:35 Temperature Pulse Rate 109 H Respiratory Rate 17 Blood Pressure 92/65 98/58 L Pulse Oximetry 97 Oxygen Delivery Method Oxygen Flow Rate 12/21/22 22:41 12/21/22 22:41 12/21/22 22:45 Temperature Pulse Rate 99 H 93 H Respiratory Rate 14 20 Blood Pressure 110/58 L Pulse Oximetry 97 96 Oxygen Delivery Method Oxygen Flow Rate 12/21/22 22:45 12/21/22 22:50 12/21/22 22:50 Temperature Pulse Rate 98 H Respiratory Rate 15 Blood Pressure 111/55 L 109/57 L Pulse Oximetry 97 Oxygen Delivery Method Oxygen Flow Rate 12/21/22 22:55 12/21/22 22:55 12/21/22 23:00 Temperature Pulse Rate 101 H Respiratory Rate 19 Blood Pressure 110/68 108/70 Pulse Oximetry 98 Oxygen Delivery Method Oxygen Flow Rate 12/21/22 23:00 12/21/22 23:05 12/21/22 23:05 Temperature Pulse Rate 105 H 105 H Respiratory Rate 18 17 Blood Pressure 115/57 L Pulse Oximetry 98 98 Oxygen Delivery Method Oxygen Flow Rate 12/21/22 23:10 12/21/22 23:10 12/21/22 23:15 Temperature Pulse Rate 103 H Respiratory Rate 18 Blood Pressure 124/58 L 116/58 L Pulse Oximetry 98 Oxygen Delivery Method Oxygen Flow Rate 12/21/22 23:15 12/21/22 23:20 12/21/22 23:20 Temperature Pulse Rate 119 H 109 H Respiratory Rate 24 20 Blood Pressure 116/61 Pulse Oximetry 99 100 Oxygen Delivery Method Oxygen Flow Rate 12/21/22 23:30 12/21/22 23:30 12/21/22 23:35 Temperature Pulse Rate 109 H 114 H Respiratory Rate 23 26 H Blood Pressure 114/65 Pulse Oximetry 99 99 Oxygen Delivery Method Oxygen Flow Rate 12/21/22 23:35 12/21/22 23:41 12/21/22 23:41 Temperature Pulse Rate 114 H Respiratory Rate 23 Blood Pressure 106/60 112/57 L Pulse Oximetry 98 Oxygen Delivery Method Oxygen Flow Rate 12/21/22 23:45 12/21/22 23:45 12/22/22 00:00 Temperature Pulse Rate 128 H 142 H Respiratory Rate 19 Blood Pressure 110/74 Pulse Oximetry 98 98 Oxygen Delivery Method Oxygen Flow Rate 12/22/22 00:01 12/22/22 00:01 12/22/22 00:09 Temperature Pulse Rate 130 H 116 H Respiratory Rate 19 16 Blood Pressure 101/55 L Pulse Oximetry 99 97 Oxygen Delivery Method Oxygen Flow Rate 12/22/22 00:09 12/22/22 00:10 12/22/22 00:10 Temperature Pulse Rate 118 H Respiratory Rate 19 Blood Pressure 118/66 115/71 Pulse Oximetry 99 Oxygen Delivery Method Oxygen Flow Rate 12/22/22 00:15 12/22/22 00:15 Temperature Pulse Rate 117 H Respiratory Rate 19 Blood Pressure 106/59 L Pulse Oximetry 99 Oxygen Delivery Method Room Air Oxygen Flow Rate MDM - Extremity (Nontraumatic) Lab Data 12/21/22 18:17 12/21/22 18:17 Labs: Lab Results 12/21/22 12/21/22 12/21/22 Range/Units 18:17 18:17 18:17 WBC 7.8 (4.5-11.0) X10^3/uL RBC 4.03 (4.0-5.2) X10^6/uL Hgb 11.3 L (12.0-16.0) g/dL Hct 34.2 L (36-46) % MCV 84.9 (80-100) fL MCH 28.1 (26-34) PG MCHC 33.1 (30-36) % RDW 14.4 (11.6-14.8) % Plt Count 281 (150-400) X10^3/uL Neut % (Auto) 84.7 H (50-75) % Lymph % (Auto) 3.9 L (25-40) % [place] % (Auto) 7.0 (3-14) % Eos % (Auto) 3.1 (2-4) % Baso % (Auto) 1.3 (0-2) % Neut # (Auto) 6600 (0559-8104) /uL Lymph # (Auto) 300 L (3150-2995) /uL [place] # (Auto) 600 (0-900) /uL Eos # (Auto) 200 (0-450) /uL Baso # (Auto) 100 (0-100) /uL PT 18.8 H (10.1-12.7) SECONDS INR 1.6 H (0.9-1.3) Sodium 139 (137-145) mmol/L Potassium 4.1 (3.4-5.1) mmol/L Chloride 107 (98-107) mmol/L Carbon Dioxide 25 (22-32) mmol/L BUN 22 H (7-17) mg/dL Creatinine 1.33 H (0.52-1.04) mg/dL Estimated GFR 42 L (>60) mL/min BUN/Creatinine Ratio 16.5 (6-22) Glucose 135 H (80-110) mg/dL Lactate (0.7-2.1) mmol/L Calcium 8.9 (8.4-10.2) mg/dL Total Bilirubin 0.5 (0.2-1.3) mg/dL AST 24 (14-36) IU/L ALT 17 (<35) IU/L Alkaline Phosphatase 63 (38-126) U/L Total Creatine Kinase 50 (30-135) U/L CK-MB (CK-2) TNP CK-MB (CK-2) Rel Index TNP Troponin I < 0.012 (0.01-0.034) ng/mL NT-Pro-B Natriuret Pep (<125) pg/mL Total Protein 6.1 L (6.3-8.2) g/dL Albumin 3.4 L (3.5-5.0) g/dL Globulin 2.7 (1.7-4.1) g/dL Albumin/Globulin Ratio 1.3 (1.0-2.8) Lipase 127 (23-300) U/L Procalcitonin 0.05 (<0.5) ng/mL 12/21/22 12/21/22 Range/Units 18:17 18:17 WBC (4.5-11.0) X10^3/uL RBC (4.0-5.2) X10^6/uL Hgb (12.0-16.0) g/dL Hct (36-46) % MCV (80-100) fL MCH (26-34) PG MCHC (30-36) % RDW (11.6-14.8) % Plt Count (150-400) X10^3/uL Neut % (Auto) (50-75) % Lymph % (Auto) (25-40) % [place] % (Auto) (3-14) % Eos % (Auto) (2-4) % Baso % (Auto) (0-2) % Neut # (Auto) (0329-3679) /uL Lymph # (Auto) (0625-6016) /uL [place] # (Auto) (0-900) /uL Eos # (Auto) (0-450) /uL Baso # (Auto) (0-100) /uL PT (10.1-12.7) SECONDS INR (0.9-1.3) Sodium (137-145) mmol/L Potassium (3.4-5.1) mmol/L Chloride (98-107) mmol/L Carbon Dioxide (22-32) mmol/L BUN (7-17) mg/dL Creatinine (0.52-1.04) mg/dL Estimated GFR (>60) mL/min BUN/Creatinine Ratio (6-22) Glucose (80-110) mg/dL Lactate 1.2 (0.7-2.1) mmol/L Calcium (8.4-10.2) mg/dL Total Bilirubin (0.2-1.3) mg/dL AST (14-36) IU/L ALT (<35) IU/L Alkaline Phosphatase (38-126) U/L Total Creatine Kinase (30-135) U/L CK-MB (CK-2) CK-MB (CK-2) Rel Index Troponin I (0.01-0.034) ng/mL NT-Pro-B Natriuret Pep 3300 H (<125) pg/mL Total Protein (6.3-8.2) g/dL Albumin (3.5-5.0) g/dL Globulin (1.7-4.1) g/dL Albumin/Globulin Ratio (1.0-2.8) Lipase (23-300) U/L Procalcitonin (<0.5) ng/mL Point of Care Testing Test Results Not applicable Discharge Plan Departure Patient Disposition: Admitted As Inpatient Clinical Impression: Atrial fibrillation with RVR, Acute CHF Admit Date/Time: 12/22/22 00:15 Admit Provider: Chda Jennings
[2022-12-21 18:42] LABS: INR 1.6 (0.9-1.3); Prothrombin Time 18.8 SECONDS (10.1-12.7)
[2022-12-21 18:47] LABS: Alanine Aminotransferase 17 IU/L (<35); Albumin 3.4 g/dL (3.5-5.0); Albumin Globulin Ratio 1.3 (1.0-2.8); Alkaline Phosphatase 63 U/L (38-126); Aspartate Aminotransferase 24 IU/L (14-36); BUN Creatinine Ratio 16.5 (6-22); Bilirubin Total 0.5 mg/dL (0.2-1.3); Blood Urea Nitrogen 22 mg/dL (7-17); Calcium 8.9 mg/dL (8.4-10.2); Carbon Dioxide 25 mmol/L (22-32); Chloride 107 mmol/L (98-107); Creatine Kinase 50 U/L (30-135); Estimated Glomerular Filt Rate 42 mL/min (>60); Globulin 2.7 g/dL (1.7-4.1); Glucose 135 mg/dL (80-110); HEMOLYSIS < 15 (0-50); Lipase 127 U/L (23-300); Potassium 4.1 mmol/L (3.4-5.1); Sodium 139 mmol/L (137-145); Total Protein 6.1 g/dL (6.3-8.2)
[2022-12-21 18:48] LABS: Add Manual Diff / Slide Review NO; Basophils Absolute Auto 100 /uL (0-100); Basophils Percent Auto 1.3 % (0-2); Eosinophils Absolute Auto 200 /uL (0-450); Eosinophils Percent Auto 3.1 % (2-4); Hematocrit 34.2 % (36-46); Hemoglobin 11.3 g/dL (12.0-16.0); Lactate (Lactic Acid) 1.2 mmol/L (0.7-2.1); Lymphocytes Absolute Auto 300 /uL (1100-4500); Lymphocytes Percent Auto 3.9 % (25-40); Mean Corpuscular HGB Conc 33.1 % (30-36); Mean Corpuscular Hemoglobin 28.1 PG (26-34); Mean Corpuscular Volume 84.9 fL (80-100); Monocytes Absolute Auto 600 /uL (0-900); Neutrophils Absolute Auto 6600 /uL (1500-7000); Neutrophils Percent Auto 84.7 % (50-75); Platelet Count 281 X10^3/uL (150-400); Red Blood Cell Count 4.03 X10^6/uL (4.0-5.2); Red Cell Distribution Width 14.4 % (11.6-14.8); White Blood Cell Count 7.8 X10^3/uL (4.5-11.0)
[2022-12-21 18:56] LABS: NT-proBNP (BNP-Adult 18+) 3300 pg/mL (<125)
[2022-12-21 18:59] LABS: Troponin I < 0.012 ng/mL (0.01-0.034)
[2022-12-21 19:04] LABS: Procalcitonin 0.05 ng/mL (<0.5)
[2022-12-21] MEDS: propofoL 200 MG/20 ML VIAL 100 MG IV (22:25)
[2022-12-21] MEDS: SODIUM CHLORIDE 0.9% 500 ML 1000 ML IV (22:30)
[2022-12-21] MEDS: FUROSEMIDE 40 MG/4 ML VIAL IV (23:47)
[2022-12-22] VITALS (45 sets, daily range): BP systolic 68–138; BP diastolic 46–91; PULSE 95–182; RESP 12–33; TEMP 36.7–37; O2SAT 90–100; BMI 36.5
--- NOTE | 2022-12-22 00:13 | DI.ECHO.S_ITS ---
[facility]---------+ [facility] +---------+ : : [address] : : : : [id number] : : : : Phone: [phone]+ Echocardiogram Report + + :Name: MAKENZIE COVARRUBIAS Study Date: 12/22/2022 Height: 65 in : :[facility] ReadingLocation: Weight: 220 lb : : Gender: Female BSA: 2.1 m2 : :: 1950 Age: 72 yrs BP: 110/64 mmHg: :Reason For Study: ATRIAL FIBRILLATION : :Ordering Physician: SUSY, : :DELILAH Performed By: Arminda Daniel : :Referring: DELILAH JAIN : + + Interpretation Summary A-fib with rapid ventricular rate. Heart rate fluctuated between 104-114 bpm during exam. Normal LV size and wall thickness. There is global hypokinesis with ejection fraction of 30-35%. Severe left enlargement, mild right atrial enlargement and mild right ventricular enlargement with mildly reduced RV function. Moderate mitral annular calcification with mild associated mitral regurgitation. Mild aortic regurgitation. Estimated PA systolic pressure is 30 mm hg assuming RA pressure of 8 mm Hg. Compared to prior study 01/10/2021 afib is new and cardiomyopathy is new. Procedure: A two-dimensional transthoracic echocardiogram with color flow and Doppler was performed. The study quality was technically adequate. Comparison is made with the echocardiogram of 01/10/2021. The patient was in atrial fibrillation with heart rates between 101-136 bpm during the exam. Left Ventricle: The left ventricle is normal in size and wall thickness. The ejection fraction is estimated to be 30-35%. Diastolic function could not be accurately assessed due to atrial fibrillation. Right Ventricle: The right ventricle is mildly dilated. Right ventricular systolic function is mildly reduced. Atria: The left atrium is moderately dilated. The right atrium is mildly dilated. Mitral Valve: The mitral valve leaflets appear normal. There is no evidence of stenosis, fluttering, or prolapse. There is moderate mitral annular calcification. There is mild mitral regurgitation. Aortic Valve: The aortic valve is trileaflet. The aortic valve opens well. There is mild aortic valve sclerosis. There is no aortic valve stenosis. There is mild aortic regurgitation. Tricuspid Valve: The tricuspid valve is normal in structure and function. There is mild tricuspid regurgitation. The right ventricular systolic pressure is estimated to be at least 30 mmHg based on an estimated right atrial pressure of 8 mm Hg. Pulmonic Valve: The pulmonic valve is not well seen, but is grossly normal. There is no pulmonic valvular regurgitation. Great Vessels: The aortic root is normal size. The dimensions of the ascending aorta are normal. The IVC is dilated (diameter is greater than 2.1 cm) yet it collapses greater than 50% with a sniff. This suggests a right atrial pressure of 8 mm Hg. Pericardium/ Pleura There is no pericardial effusion. There is no pleural effusion. MMode/2D Measurements & Calculations LVIDd: 4.9 cm LVOT diam: 2.0 cm LVIDs: 4.3 cm Ao root diam: 2.8 cm FS: 13.1 % asc Aorta Diam: 3.4 cm IVSd: 0.75 cm Ao Arch Diam (Prox Trans): 2.6 cm LVPWd: 0.72 cm LV lord. diameter/BSA (cm/m^2): 2.4 LV sys. diameter/BSA (cm/m^2): 2.1 LA A2 area: 26.9 cm2 RA long axis: 5.0 cm LA A4 area: 24.7 cm2 RA area: 21.3 cm2 LA length (vol): 6.0 cm RA vol: 77.5 ml LA vol: 94.5 ml RA : 37.6 ml/m2 LA vol index: 45.9 ml/m2 IVC diam: 2.5 cm RVD1 (basal): 4.0 cm RVD2 (mid): 3.9 cm TAPSE: 1.4 cm Doppler Measurements & Calculations Ao V2 max: 182.3 cm/sec LVOT Max Dave: 88.5 cm/sec Ao V2 mean: 126.1 cm/sec LV V1 max P.2 mmHg Ao max P.3 mmHg LV V1 VTI: 14.5 cm Ao mean P.0 mmHg SHANTANU(I,D): 1.3 cm2 Ao V2 VTI: 32.3 cm SHANTANU(V,D): 1.5 cm2 sev ratio: 0.45 SHANTANU indexed to BSA (cm^2/m^2): 0.65 MV E max dave: 148.8 cm/sec TR max dave: 236.7 cm/sec MV A max dave: 1.5 cm/sec TR max P.4 mmHg MV E/A: 98.0 PA pr(Accel): 36.2 mmHg Med Peak E' Dave: 6.1 cm/sec E/E' med: 24.5 Lat Peak E' Dave: 8.6 cm/sec E/E' lat: 17.3 E/e' average: 20.9 MV dec time: 0.16 sec SV(DAVEOT): 43.6 ml Electronically signed by: Tierra Camarena M.D. on Reading Physician:12/22/2022 02:17 PM
[2022-12-22] MEDS: AMIODARONE 150 MG/100 ML PIGGYBACK 200 MG IV (00:14)
[2022-12-22] MEDS: AMIODARONE 360 MG/200 ML PIGGYBACK 33.3 MG IV (01:06)
--- NOTE | 2022-12-22 01:16 | PM.HP.1 ---
History of Present Illness History of Present Illness Date Patient Seen: 12/22/22 Time Patient Seen: 00:30 Chief complaint: eval heart function-medication dose new t-7 Narrative: Ms. Nelson is a 72W with PMH afib, hypertension who presents to the hospital with fluid retention, shortness of breath. She has a known history of afib. She has been cardioverted last time in October. Between then and today she flipped back into afib. She notes that her cashier and waiter/waitress doubled her diltiazem dose in response. She has been taking this dose for the last week. Within the same time period she has worsening lower extremity swelling, dyspnea with exertion and orthopnea. No chest pain. No fevers/chills. No cough. In the ED workup was done, vitals notable for afebrile, heart rate 100s-130s, blood pressure 110s/50s. Sats 99% on room air. Labs reviewed by me and notable for WBC 7.8, hgb 11.3. BUN 22, creatinine 1.33. Trop negative. Procal 0.05. BNP 3300. Chest xray reviewed by me and notable for cardiomegaly and pleural effusion. Her cardiology group was called and recommended cardioversion, this was attempted x3 and unsuccessful. She was ordered for lasix and amiodarone drip and admitted for further treatment. ON LICENSE OF [facility] Social History Smoking Status: Never smoker Meds Home Medications and Allergies Home Medications Medication Instructions Recorded Confirmed Type apixaban 5 mg tablet (Eliquis) 5 mg BID 12/21/22 12/21/22 History diltiazem HCl 240 mg 240 mg PO BID 12/21/22 12/21/22 History capsule,extended release 24 hr (Cardizem CD) escitalopram oxalate 5 mg tablet 5 mg PO DAILY 12/21/22 12/21/22 History losartan 25 mg tablet 12.5 mg DAILY 12/21/22 12/21/22 History Allergies Allergy/AdvReac Type Severity Reaction Status Date / Time Penicillins Allergy Verified 12/21/22 17:55 Sulfa (Sulfonamide Allergy Verified 12/21/22 17:55 Antibiotics) Review of Systems Review of Systems Narrative: 14 systems reviewed and negative aside from what is noted in HPI Exam Vital Signs (past 8 hours): - 12/21/22 17:55 12/21/22 18:09 12/21/22 18:12 Temperature 99.2 F Pulse Rate 103 H 71 Respiratory Rate 16 Blood Pressure 113/56 L 115/61 Pulse Oximetry 99 Oxygen Delivery Method Room Air Oxygen Flow Rate 12/21/22 18:12 12/21/22 18:40 12/21/22 19:00 Temperature Pulse Rate 128 H 103 H Respiratory Rate 19 18 Blood Pressure Pulse Oximetry 87 L 100 96 Oxygen Delivery Method Oxygen Flow Rate 12/21/22 19:30 12/21/22 19:52 12/21/22 19:52 Temperature Pulse Rate 97 H 99 H Respiratory Rate 16 17 Blood Pressure 137/78 Pulse Oximetry 96 98 Oxygen Delivery Method Room Air Oxygen Flow Rate 12/21/22 20:00 12/21/22 20:30 12/21/22 21:00 Temperature Pulse Rate 138 H 101 H 118 H Respiratory Rate 22 17 Blood Pressure Pulse Oximetry 98 98 98 Oxygen Delivery Method Oxygen Flow Rate 12/21/22 21:30 12/21/22 22:22 12/21/22 22:45 Temperature 99.5 F 97.6 F Pulse Rate 115 H 144 H 104 H Respiratory Rate 18 17 15 Blood Pressure 131/72 111/55 L Pulse Oximetry 97 97 96 Oxygen Delivery Method Room Air Oxygen Flow Rate 0 0 12/21/22 22:50 12/21/22 22:55 12/21/22 23:00 Temperature 98.5 F 98.3 F 98.6 F Pulse Rate 101 H 100 H 91 H Respiratory Rate 17 16 17 Blood Pressure 109/57 L 110/68 108/70 Pulse Oximetry 96 98 98 Oxygen Delivery Method Oxygen Flow Rate 0 0 0 12/21/22 23:05 12/21/22 21:39 12/21/22 21:39 Temperature 98.3 F Pulse Rate 100 H 109 H Respiratory Rate 18 Blood Pressure 115/57 L 127/78 Pulse Oximetry 98 97 Oxygen Delivery Method Oxygen Flow Rate 0 12/21/22 22:00 12/21/22 22:00 12/21/22 22:13 Temperature Pulse Rate 119 H 115 H Respiratory Rate 24 Blood Pressure 102/64 Pulse Oximetry 98 Oxygen Delivery Method Oxygen Flow Rate 12/21/22 22:13 12/21/22 22:15 12/21/22 22:15 Temperature Pulse Rate 137 H Respiratory Rate Blood Pressure 131/87 117/70 Pulse Oximetry Oxygen Delivery Method Room Air Oxygen Flow Rate 12/21/22 22:35 12/21/22 22:32 12/21/22 22:40 Temperature 98.4 F 98.4 F Pulse Rate 92 H 107 H 109 H Respiratory Rate 18 15 18 Blood Pressure 98/58 L 108/76 110/58 L Pulse Oximetry 95 96 96 Oxygen Delivery Method Oxygen Flow Rate 0 0 0 12/21/22 22:20 12/21/22 22:25 12/21/22 22:25 Temperature Pulse Rate 121 H Respiratory Rate Blood Pressure 131/72 96/51 L Pulse Oximetry 99 Oxygen Delivery Method Oxygen Flow Rate 12/21/22 22:26 12/21/22 22:26 12/21/22 22:28 Temperature Pulse Rate 129 H 130 H Respiratory Rate 18 19 Blood Pressure 91/59 L Pulse Oximetry 99 96 Oxygen Delivery Method Oxygen Flow Rate 12/21/22 22:28 12/21/22 22:30 12/21/22 22:30 Temperature Pulse Rate 113 H Respiratory Rate 18 Blood Pressure 95/55 L 95/68 Pulse Oximetry 95 Oxygen Delivery Method Oxygen Flow Rate 12/21/22 22:32 12/21/22 22:32 12/21/22 22:33 Temperature Pulse Rate 108 H 108 H Respiratory Rate 19 18 Blood Pressure 108/76 Pulse Oximetry 95 96 Oxygen Delivery Method Oxygen Flow Rate 12/21/22 22:33 12/21/22 22:35 12/21/22 22:35 Temperature Pulse Rate 109 H Respiratory Rate 17 Blood Pressure 92/65 98/58 L Pulse Oximetry 97 Oxygen Delivery Method Oxygen Flow Rate 12/21/22 22:41 12/21/22 22:41 12/21/22 22:45 Temperature Pulse Rate 99 H 93 H Respiratory Rate 14 20 Blood Pressure 110/58 L Pulse Oximetry 97 96 Oxygen Delivery Method Oxygen Flow Rate 12/21/22 22:45 12/21/22 22:50 12/21/22 22:50 Temperature Pulse Rate 98 H Respiratory Rate 15 Blood Pressure 111/55 L 109/57 L Pulse Oximetry 97 Oxygen Delivery Method Oxygen Flow Rate 12/21/22 22:55 12/21/22 22:55 12/21/22 23:00 Temperature Pulse Rate 101 H Respiratory Rate 19 Blood Pressure 110/68 108/70 Pulse Oximetry 98 Oxygen Delivery Method Oxygen Flow Rate 12/21/22 23:00 12/21/22 23:05 12/21/22 23:05 Temperature Pulse Rate 105 H 105 H Respiratory Rate 18 17 Blood Pressure 115/57 L Pulse Oximetry 98 98 Oxygen Delivery Method Oxygen Flow Rate 12/21/22 23:10 12/21/22 23:10 12/21/22 23:15 Temperature Pulse Rate 103 H Respiratory Rate 18 Blood Pressure 124/58 L 116/58 L Pulse Oximetry 98 Oxygen Delivery Method Oxygen Flow Rate 12/21/22 23:15 12/21/22 23:20 12/21/22 23:20 Temperature Pulse Rate 119 H 109 H Respiratory Rate 24 20 Blood Pressure 116/61 Pulse Oximetry 99 100 Oxygen Delivery Method Oxygen Flow Rate 12/21/22 23:30 12/21/22 23:30 12/21/22 23:35 Temperature Pulse Rate 109 H 114 H Respiratory Rate 23 26 H Blood Pressure 114/65 Pulse Oximetry 99 99 Oxygen Delivery Method Oxygen Flow Rate 12/21/22 23:35 12/21/22 23:41 12/21/22 23:41 Temperature Pulse Rate 114 H Respiratory Rate 23 Blood Pressure 106/60 112/57 L Pulse Oximetry 98 Oxygen Delivery Method Oxygen Flow Rate 12/21/22 23:45 12/21/22 23:45 12/22/22 00:00 Temperature Pulse Rate 128 H 142 H Respiratory Rate 19 Blood Pressure 110/74 Pulse Oximetry 98 98 Oxygen Delivery Method Oxygen Flow Rate 12/22/22 00:01 12/22/22 00:01 12/22/22 00:09 Temperature Pulse Rate 130 H 116 H Respiratory Rate 19 16 Blood Pressure 101/55 L Pulse Oximetry 99 97 Oxygen Delivery Method Oxygen Flow Rate 12/22/22 00:09 12/22/22 00:10 12/22/22 00:10 Temperature Pulse Rate 118 H Respiratory Rate 19 Blood Pressure 118/66 115/71 Pulse Oximetry 99 Oxygen Delivery Method Oxygen Flow Rate 12/22/22 00:15 12/22/22 00:15 12/22/22 00:18 Temperature Pulse Rate 117 H Respiratory Rate 19 Blood Pressure 106/59 L 106/64 Pulse Oximetry 99 Oxygen Delivery Method Room Air Oxygen Flow Rate 12/22/22 00:18 12/22/22 00:20 12/22/22 00:20 Temperature Pulse Rate 113 H 110 H Respiratory Rate 14 14 Blood Pressure 99/59 L Pulse Oximetry 99 99 Oxygen Delivery Method Oxygen Flow Rate 12/22/22 00:25 12/22/22 00:25 12/22/22 00:30 Temperature Pulse Rate 125 H 135 H Respiratory Rate 12 13 Blood Pressure 116/59 L Pulse Oximetry 99 98 Oxygen Delivery Method Room Air Oxygen Flow Rate 12/22/22 00:52 12/22/22 00:52 12/22/22 01:00 Temperature Pulse Rate 141 H 137 H Respiratory Rate 21 33 H Blood Pressure 138/74 Pulse Oximetry 93 93 Oxygen Delivery Method Room Air Oxygen Flow Rate 12/22/22 01:05 12/22/22 01:05 Temperature 98.0 F Pulse Rate 131 H Respiratory Rate 17 Blood Pressure 100/72 Pulse Oximetry 96 Oxygen Delivery Method Oxygen Flow Rate 0 Oxygen Delivery Method Room Air Oxygen Flow Rate 0 Narrative Exam Narrative: GEN: no acute distress CV: irregular tachycardic PULM: clear bilaterally ABD: soft, nontender, nondistended, no organomegaly EXT: warm and well perfused 1+ pitting edema NEURO: awake, alert, oriented, no focal deficits Objective Labs 12/21/22 18:17 12/21/22 18:17 Labs: Laboratory Results - last 24 hr 12/21/22 12/21/22 12/21/22 18:17 18:17 18:17 WBC 7.8 RBC 4.03 Hgb 11.3 L Hct 34.2 L MCV 84.9 MCH 28.1 MCHC 33.1 RDW 14.4 Plt Count 281 Neut % (Auto) 84.7 H Lymph % (Auto) 3.9 L [place] % (Auto) 7.0 Eos % (Auto) 3.1 Baso % (Auto) 1.3 Neut # (Auto) 6600 Lymph # (Auto) 300 L [place] # (Auto) 600 Eos # (Auto) 200 Baso # (Auto) 100 PT 18.8 H INR 1.6 H Sodium 139 Potassium 4.1 Chloride 107 Carbon Dioxide 25 BUN 22 H Creatinine 1.33 H Estimated GFR 42 L BUN/Creatinine Ratio 16.5 Glucose 135 H Lactate Calcium 8.9 Total Bilirubin 0.5 AST 24 ALT 17 Alkaline Phosphatase 63 Total Creatine Kinase 50 CK-MB (CK-2) TNP CK-MB (CK-2) Rel Index TNP Troponin I < 0.012 NT-Pro-B Natriuret Pep Total Protein 6.1 L Albumin 3.4 L Globulin 2.7 Albumin/Globulin Ratio 1.3 Lipase 127 Procalcitonin 0.05 12/21/22 12/21/22 18:17 18:17 WBC RBC Hgb Hct MCV MCH MCHC RDW Plt Count Neut % (Auto) Lymph % (Auto) [place] % (Auto) Eos % (Auto) Baso % (Auto) Neut # (Auto) Lymph # (Auto) [place] # (Auto) Eos # (Auto) Baso # (Auto) PT INR Sodium Potassium Chloride Carbon Dioxide BUN Creatinine Estimated GFR BUN/Creatinine Ratio Glucose Lactate 1.2 Calcium Total Bilirubin AST ALT Alkaline Phosphatase Total Creatine Kinase CK-MB (CK-2) CK-MB (CK-2) Rel Index Troponin I NT-Pro-B Natriuret Pep 3300 H Total Protein Albumin Globulin Albumin/Globulin Ratio Lipase Procalcitonin Assessment & Plan Assessment & Plan narrative: 1. New onset acute CHF exacerbation -patient noted to have lower extremity edema, pleural effusion, and elevated BNP -EF unknown -etiology possibly secondary to afib -also temporally occurred with increasing dilt dose -cardioverson unsuccessful -started amio, plan for full loading dose -ordered ECHO -goal negative 1-2L daily -monitor weights, I/Os closely -low salt diet, fluid restriction 2. Atrial fibrillation with RVR -diltiazem not controlling rate -stop dilt for now -ordered for amiodarone gtt -keep on tele, monitor in ICU -continue eliquis 3. Hypertension -hold losartan for now 4. Depression -continue escitalopram 5. CKD stage 2-3 -baseline creatinine appears to be 1.29-1.67 -on admit creatinine 1.33 -check daily with diuresis I have discussed plan and obtained history with the patient. I have discussed plan of care with ED physician and bedside nurse. I have reviewed labs, imaging. CODE: Full Proxy: Cornelius Nelson,
[2022-12-22 04:43] LABS: MRSA (Nasal) PCR Not Detected (Not Detect)
[2022-12-22 05:50] LABS: Magnesium 1.9 mg/dL (1.6-2.3)
--- NOTE | 2022-12-22 06:10 | PC.ADMIT ---
[address] Admission Note: The patient,Suzi Nelson,72 y/o, was given written information regarding hospital policies, unit procedures and contact persons. Patient's smoking status: Never smoker. Vital Signs - 8 hr 12/21/22 22:22 12/21/22 22:45 12/21/22 22:50 Temperature 99.5 F 97.6 F 98.5 F Pulse Rate 144 H 104 H 101 H Respiratory Rate 17 15 17 Blood Pressure 131/72 111/55 L 109/57 L Pulse Oximetry 97 96 96 Oxygen Delivery Method Oxygen Flow Rate 0 0 0 12/21/22 22:55 12/21/22 23:00 12/21/22 23:05 Temperature 98.3 F 98.6 F 98.3 F Pulse Rate 100 H 91 H 100 H Respiratory Rate 16 17 18 Blood Pressure 110/68 108/70 115/57 L Pulse Oximetry 98 98 98 Oxygen Delivery Method Oxygen Flow Rate 0 0 0 12/21/22 22:13 12/21/22 22:13 12/21/22 22:15 Temperature Pulse Rate 115 H 137 H Respiratory Rate 24 Blood Pressure 131/87 Pulse Oximetry Oxygen Delivery Method Oxygen Flow Rate 12/21/22 22:15 12/21/22 22:35 12/21/22 22:32 Temperature 98.4 F Pulse Rate 92 H 107 H Respiratory Rate 18 15 Blood Pressure 117/70 98/58 L 108/76 Pulse Oximetry 95 96 Oxygen Delivery Method Room Air Oxygen Flow Rate 0 0 12/21/22 22:40 12/21/22 22:20 12/21/22 22:25 Temperature 98.4 F Pulse Rate 109 H Respiratory Rate 18 Blood Pressure 110/58 L 131/72 96/51 L Pulse Oximetry 96 Oxygen Delivery Method Oxygen Flow Rate 0 12/21/22 22:25 12/21/22 22:26 12/21/22 22:26 Temperature Pulse Rate 121 H 129 H Respiratory Rate 18 Blood Pressure 91/59 L Pulse Oximetry 99 99 Oxygen Delivery Method Oxygen Flow Rate 12/21/22 22:28 12/21/22 22:28 12/21/22 22:30 Temperature Pulse Rate 130 H Respiratory Rate 19 Blood Pressure 95/55 L 95/68 Pulse Oximetry 96 Oxygen Delivery Method Oxygen Flow Rate 12/21/22 22:30 12/21/22 22:32 12/21/22 22:32 Temperature Pulse Rate 113 H 108 H Respiratory Rate 18 19 Blood Pressure 108/76 Pulse Oximetry 95 95 Oxygen Delivery Method Oxygen Flow Rate 12/21/22 22:33 12/21/22 22:33 12/21/22 22:35 Temperature Pulse Rate 108 H 109 H Respiratory Rate 18 17 Blood Pressure 92/65 Pulse Oximetry 96 97 Oxygen Delivery Method Oxygen Flow Rate 12/21/22 22:35 12/21/22 22:41 12/21/22 22:41 Temperature Pulse Rate 99 H Respiratory Rate 14 Blood Pressure 98/58 L 110/58 L Pulse Oximetry 97 Oxygen Delivery Method Oxygen Flow Rate 12/21/22 22:45 12/21/22 22:45 12/21/22 22:50 Temperature Pulse Rate 93 H 98 H Respiratory Rate 20 15 Blood Pressure 111/55 L Pulse Oximetry 96 97 Oxygen Delivery Method Oxygen Flow Rate 12/21/22 22:50 12/21/22 22:55 12/21/22 22:55 Temperature Pulse Rate 101 H Respiratory Rate 19 Blood Pressure 109/57 L 110/68 Pulse Oximetry 98 Oxygen Delivery Method Oxygen Flow Rate 12/21/22 23:00 12/21/22 23:00 12/21/22 23:05 Temperature Pulse Rate 105 H 105 H Respiratory Rate 18 17 Blood Pressure 108/70 Pulse Oximetry 98 98 Oxygen Delivery Method Oxygen Flow Rate 12/21/22 23:05 12/21/22 23:10 12/21/22 23:10 Temperature Pulse Rate 103 H Respiratory Rate 18 Blood Pressure 115/57 L 124/58 L Pulse Oximetry 98 Oxygen Delivery Method Oxygen Flow Rate 12/21/22 23:15 12/21/22 23:15 12/21/22 23:20 Temperature Pulse Rate 119 H 109 H Respiratory Rate 24 20 Blood Pressure 116/58 L Pulse Oximetry 99 100 Oxygen Delivery Method Oxygen Flow Rate 12/21/22 23:20 12/21/22 23:30 12/21/22 23:30 Temperature Pulse Rate 109 H Respiratory Rate 23 Blood Pressure 116/61 114/65 Pulse Oximetry 99 Oxygen Delivery Method Oxygen Flow Rate 12/21/22 23:35 12/21/22 23:35 12/21/22 23:41 Temperature Pulse Rate 114 H 114 H Respiratory Rate 26 H 23 Blood Pressure 106/60 Pulse Oximetry 99 98 Oxygen Delivery Method Oxygen Flow Rate 12/21/22 23:41 12/21/22 23:45 12/21/22 23:45 Temperature Pulse Rate 128 H Respiratory Rate Blood Pressure 112/57 L 110/74 Pulse Oximetry 98 Oxygen Delivery Method Oxygen Flow Rate 12/22/22 00:00 12/22/22 00:01 12/22/22 00:01 Temperature Pulse Rate 142 H 130 H Respiratory Rate 19 19 Blood Pressure 101/55 L Pulse Oximetry 98 99 Oxygen Delivery Method Oxygen Flow Rate 12/22/22 00:09 12/22/22 00:09 12/22/22 00:10 Temperature Pulse Rate 116 H 118 H Respiratory Rate 16 19 Blood Pressure 118/66 Pulse Oximetry 97 99 Oxygen Delivery Method Oxygen Flow Rate 12/22/22 00:10 12/22/22 00:15 12/22/22 00:15 Temperature Pulse Rate 117 H Respiratory Rate 19 Blood Pressure 115/71 106/59 L Pulse Oximetry 99 Oxygen Delivery Method Room Air Oxygen Flow Rate 12/22/22 00:18 12/22/22 00:18 12/22/22 00:20 Temperature Pulse Rate 113 H 110 H Respiratory Rate 14 14 Blood Pressure 106/64 Pulse Oximetry 99 99 Oxygen Delivery Method Oxygen Flow Rate 12/22/22 00:20 12/22/22 00:25 12/22/22 00:25 Temperature Pulse Rate 125 H Respiratory Rate 12 Blood Pressure 99/59 L 116/59 L Pulse Oximetry 99 Oxygen Delivery Method Oxygen Flow Rate 12/22/22 00:30 12/22/22 00:52 12/22/22 00:52 Temperature Pulse Rate 135 H 141 H Respiratory Rate 13 21 Blood Pressure 138/74 Pulse Oximetry 98 93 Oxygen Delivery Method Room Air Room Air Oxygen Flow Rate 12/22/22 01:00 12/22/22 01:05 12/22/22 01:05 Temperature 98.0 F Pulse Rate 137 H 131 H Respiratory Rate 33 H 17 Blood Pressure 100/72 Pulse Oximetry 93 96 Oxygen Delivery Method Oxygen Flow Rate 0 12/22/22 01:00 12/22/22 01:33 12/22/22 01:33 Temperature Pulse Rate 108 H Respiratory Rate 15 Blood Pressure 105/62 Pulse Oximetry 99 Oxygen Delivery Method Room Air Oxygen Flow Rate 12/22/22 02:00 12/22/22 02:57 12/22/22 02:57 Temperature Pulse Rate 114 H 118 H Respiratory Rate 17 14 Blood Pressure 97/67 97/67 Pulse Oximetry 97 97 Oxygen Delivery Method Oxygen Flow Rate 12/22/22 03:00 12/22/22 03:00 12/22/22 04:00 Temperature Pulse Rate 120 H Respiratory Rate 21 Blood Pressure 84/60 L 91/59 L Pulse Oximetry 97 Oxygen Delivery Method Oxygen Flow Rate 0 12/22/22 04:00 12/22/22 05:00 12/22/22 05:01 Temperature 98.5 F Pulse Rate 112 H 111 H Respiratory Rate 17 16 Blood Pressure 97/54 L Pulse Oximetry 96 95 Oxygen Delivery Method Oxygen Flow Rate 0 12/22/22 05:01 12/22/22 05:00 Temperature Pulse Rate 123 H Respiratory Rate 15 Blood Pressure Pulse Oximetry 95 Oxygen Delivery Method Room Air Oxygen Flow Rate 0 Patient admitted to ICU room 226 at 0045. A/Ox4. First bolus dose of Amiodarone complete, 2nd bag started at 33.3ml/hr as ordered. Remains in A-fib RVR rate variable 100-130s, BPs low, but stable, see vital trends. Denies chest pain, pressure, or dizziness. Mild shortness of breath with activity, RA SpO2 >94%, bibasilar crackles. Received IV Lasix in ED prior to admit, diuresed 2400ml UOP via Purewick.
[2022-12-22] MEDS: AMIODARONE 360 MG/200 ML PIGGYBACK 16.7 MG IV ×2 (06:45→17:43)
[2022-12-22] MEDS: APIXABAN 5 MG TABLET PO ×2 (09:14→20:55)
[2022-12-22] MEDS: ESCITALOPRAM 10 MG TABLET 5 MG PO (09:14)
[2022-12-22] MEDS: FUROSEMIDE 40 MG/4 ML VIAL IV ×2 (09:15→12:51)
[2022-12-22] MEDS: ALBUTEROL 2.5 MG/3 ML NEB (ADULT) INH (10:01)
--- NOTE | 2022-12-22 10:57 | PC.NURSE ---
Addendum entered by Valerie Britton R.N. 12/22/22 17:09: Pt continues to be on Amiodarone gtt 16.7, HR variable from 145-189, Dr Hector updated, no new orders at this time, still attempting to transfer pt for cardioversion. Will continue to monitor. Original Note: Dayshift note: A/Ox4, rouses to voice but maintains that she is very tired, did not sleep well last night, Amiodarone gtt is infusing at 16.7, heart rate variable 110-165, significantly higher after Albuterol treatment. BP remains soft at 93/55 MAP 68, she denies chest pain, pressure or dizziness. RA with O2 92-95%, prior to breathing tx pt had significant wheezing, which improved post treatment, continues to have bibasilar crackles. Denies pain, Purewick in place and draining urine. Bed low and locked, call light within reach, will continue to treat and monitor.
--- NOTE | 2022-12-22 15:07 | CM.DANOTE ---
DCP: Chart review for case, met with patient at bedside, they agree to case management assessment. Completed DCP assessment based on information available. Patient is a 72 year old with Afib with RVR. Relays that she has had many cardioversions and has been on Eliquis. Cornelius Nelson [phone] is at bedside and confirms that he will be bottom hoop driver home. Walks with cane and relays that she has had falls in the past but none in the last 6 months. CC: Afib with RVR Payer: Medicare DCP: Home with supportive spouse when medically stable. P: Amiodarone drip/Telemetry/IV diuresis Reshma Joya RN, CM Discharge Planning/Care Management CM Discharge Assessment Start: 12/22/22 15:00 Freq: Status: Active Protocol: Document 12/22/22 15:01 BQ (Rec: 12/22/22 15:04 VERONICA [id number]) Discharge Planning Assessment Assigned Lighting Fixture Installer Reshma Joya RN, CM Advance Directives? No History Provided By Patient,Significant Other Has Patient been admitted in last 30 No days? Prior Living Arrangements House Household Members spouse Type of transporation used prior to Drives own vehicle admit Independent with ADL's Yes Is patient alert and oriented? Yes Caregiver for Another No DME Already Rented / Owned Cane Barriers to Discharge Yes Comment Remains in Afib with RVR Referrals Initiated None needed Medicare Choice List Provided No Whiteboard Updated in Patient Room with Yes name and ext. # of Lighting Fixture Installer Review Status In Process Next Review Type Continued Stay Review
[2022-12-22] MEDS: ALBUTEROL/IPRATROPIUM 3 ML AMPUL INH ×2 (15:19→19:51)
--- NOTE | 2022-12-22 16:20 | PC.NURSE ---
Transfer Note: Notified by Dr. Hector to start transfer process to [facility], cardiology recommended transfer for further management/possible cardioversion. 1520: Spoke with Trey, placed pt on waitlist. Facesheet, notes, and images sent/faxed per request. 1617: Spoke with Trey, confirmed pt on waitlist and all notes received. No beds at this time, call back later this evening.
--- NOTE | 2022-12-22 17:17 | P.PN_ITS ---
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 Rate is proving dif ficult to control. BP is soft still. She completed amiodarone infusion recently. Cardiology recommending transfer for continued antiarrythmic management and possible cardioversion to [facility], awaiting bed availability. Discussed with cardiology care professionals whom recommended continuing amiodarone infusion at this time but no beta kenrick, digoxic, etc at this time. If blood pressure further drops, recommended for phenylephrine. Exam Vital Signs (past 8 hours): - 12/22/22 09:27 12/22/22 10:03 12/22/22 10:00 Temperature 98.6 F Pulse Rate 143 H Respiratory Rate 27 H Blood Pressure Pulse Oximetry 98 Oxygen Delivery Method Room Air 12/22/22 10:46 12/22/22 10:46 12/22/22 11:00 Temperature Pulse Rate 149 H Respiratory Rate 20 Blood Pressure 93/60 93/55 L Pulse Oximetry 98 Oxygen Delivery Method 12/22/22 11:00 12/22/22 12:00 12/22/22 12:00 Temperature Pulse Rate 153 H 131 H Respiratory Rate 19 16 Blood Pressure 102/67 Pulse Oximetry 97 98 Oxygen Delivery Method 12/22/22 13:00 12/22/22 13:05 12/22/22 13:05 Temperature Pulse Rate 164 H 139 H Respiratory Rate 27 H 26 H Blood Pressure 135/91 H Pulse Oximetry 99 99 Oxygen Delivery Method 12/22/22 13:00 12/22/22 14:00 12/22/22 14:01 Temperature Pulse Rate 151 H 154 H Respiratory Rate 16 18 Blood Pressure Pulse Oximetry 96 96 Oxygen Delivery Method Room Air 12/22/22 14:01 12/22/22 14:04 12/22/22 14:04 Temperature Pulse Rate 156 H Respiratory Rate 19 Blood Pressure 68/46 L 103/57 L Pulse Oximetry 98 Oxygen Delivery Method 12/22/22 15:00 12/22/22 15:00 12/22/22 15:19 Temperature Pulse Rate 152 H 166 H Respiratory Rate 17 16 Blood Pressure 101/69 Pulse Oximetry 94 96 Oxygen Delivery Method Room Air 12/22/22 16:00 12/22/22 16:00 12/22/22 15:00 Temperature 98.3 F Pulse Rate 157 H Respiratory Rate 18 Blood Pressure 107/67 Pulse Oximetry 95 Oxygen Delivery Method 12/22/22 17:00 12/22/22 17:00 12/22/22 17:00 Temperature Pulse Rate 156 H Respiratory Rate 19 Blood Pressure 107/74 Pulse Oximetry 93 Oxygen Delivery Method Room Air Oxygen Delivery Method Room Air Oxygen Flow Rate 0 Objective Labs 12/21/22 18:17 12/21/22 18:17 Labs: Laboratory Results - last 24 hr 12/21/22 12/21/22 12/21/22 18:17 18:17 18:17 WBC 7.8 RBC 4.03 Hgb 11.3 L Hct 34.2 L MCV 84.9 MCH 28.1 MCHC 33.1 RDW 14.4 Plt Count 281 Neut % (Auto) 84.7 H Lymph % (Auto) 3.9 L [place] % (Auto) 7.0 Eos % (Auto) 3.1 Baso % (Auto) 1.3 Neut # (Auto) 6600 Lymph # (Auto) 300 L [place] # (Auto) 600 Eos # (Auto) 200 Baso # (Auto) 100 PT 18.8 H INR 1.6 H Sodium 139 Potassium 4.1 Chloride 107 Carbon Dioxide 25 BUN 22 H Creatinine 1.33 H Estimated GFR 42 L BUN/Creatinine Ratio 16.5 Glucose 135 H Lactate Calcium 8.9 Magnesium Total Bilirubin 0.5 AST 24 ALT 17 Alkaline Phosphatase 63 Total Creatine Kinase 50 CK-MB (CK-2) TNP CK-MB (CK-2) Rel Index TNP Troponin I < 0.012 NT-Pro-B Natriuret Pep Total Protein 6.1 L Albumin 3.4 L Globulin 2.7 Albumin/Globulin Ratio 1.3 Lipase 127 Procalcitonin 0.05 Nasal Screen MRSA (PCR) 12/21/22 12/21/22 12/22/22 18:17 18:17 00:56 WBC RBC Hgb Hct MCV MCH MCHC RDW Plt Count Neut % (Auto) Lymph % (Auto) [place] % (Auto) Eos % (Auto) Baso % (Auto) Neut # (Auto) Lymph # (Auto) [place] # (Auto) Eos # (Auto) Baso # (Auto) PT INR Sodium Potassium Chloride Carbon Dioxide BUN Creatinine Estimated GFR BUN/Creatinine Ratio Glucose Lactate 1.2 Calcium Magnesium Total Bilirubin AST ALT Alkaline Phosphatase Total Creatine Kinase CK-MB (CK-2) CK-MB (CK-2) Rel Index Troponin I NT-Pro-B Natriuret Pep 3300 H Total Protein Albumin Globulin Albumin/Globulin Ratio Lipase Procalcitonin Nasal Screen MRSA (PCR) Not detected 12/22/22 04:45 WBC RBC Hgb Hct MCV MCH MCHC RDW Plt Count Neut % (Auto) Lymph % (Auto) [place] % (Auto) Eos % (Auto) Baso % (Auto) Neut # (Auto) Lymph # (Auto) [place] # (Auto) Eos # (Auto) Baso # (Auto) PT INR Sodium Potassium Chloride Carbon Dioxide BUN Creatinine Estimated GFR BUN/Creatinine Ratio Glucose Lactate Calcium Magnesium 1.9 Total Bilirubin AST ALT Alkaline Phosphatase Total Creatine Kinase CK-MB (CK-2) CK-MB (CK-2) Rel Index Troponin I NT-Pro-B Natriuret Pep Total Protein Albumin Globulin Albumin/Globulin Ratio Lipase Procalcitonin Nasal Screen MRSA (PCR) [facility] Social History household members: spouse Smoking Status: Never smoker Quality VTE Deep Vein Thrombosis/Pulmonary Embolism Present on Admission: Yes
[2022-12-22] MEDS: BUDESONIDE 0.5 MG/2 ML NEB INH (19:51)
[2022-12-22] MEDS: ACETAMINOPHEN 325 MG TABLET 650 MG PO ×2 (20:55→21:10)
[2022-12-23] VITALS (33 sets, daily range): BP systolic 87–140; BP diastolic 52–93; PULSE 106–182; RESP 12–40; TEMP 36.4–36.8; O2SAT 91–100
[2022-12-23] MEDS: FUROSEMIDE 40 MG/4 ML VIAL IV ×2 (00:26→12:00)
--- NOTE | 2022-12-23 05:00 | PC.NURSE ---
Pt has been Afib with frequent PVC's 130's-180's throughout the night. Amiodarone is at 16.7ml/hr. 2nd bag completed at 0500 with no order to continue or switch to PO. Notified . Verbal orders to continue Amiodarone gtt at 16.7ml/hr for now. Pharmacy aware and placed verbal order. Pt received 40mg Lasix, about 1600cc urine output. PRN Tylenol given for c/o 8/10 neck pain. Pain resolved and slept through the night.
[2022-12-23 05:05] LABS: Add Manual Diff / Slide Review NO; Basophils Absolute Auto 100 /uL (0-100); Basophils Percent Auto 0.8 % (0-2); Eosinophils Absolute Auto 200 /uL (0-450); Eosinophils Percent Auto 2.6 % (2-4); Hematocrit 34.9 % (36-46); Hemoglobin 11.5 g/dL (12.0-16.0); Lymphocytes Absolute Auto 1300 /uL (1100-4500); Lymphocytes Percent Auto 20.4 % (25-40); Mean Corpuscular HGB Conc 33.1 % (30-36); Mean Corpuscular Volume 84.8 fL (80-100); Monocytes Absolute Auto 500 /uL (0-900); Monocytes Percent Auto 8.6 % (3-14); Neutrophils Absolute Auto 4200 /uL (1500-7000); Neutrophils Percent Auto 67.6 % (50-75); Platelet Count 262 X10^3/uL (150-400); Red Blood Cell Count 4.11 X10^6/uL (4.0-5.2); Red Cell Distribution Width 14.6 % (11.6-14.8); White Blood Cell Count 6.3 X10^3/uL (4.5-11.0)
[2022-12-23 05:12] LABS: BUN Creatinine Ratio 14.6 (6-22); Blood Urea Nitrogen 20 mg/dL (7-17); Calcium 8.5 mg/dL (8.4-10.2); Carbon Dioxide 33 mmol/L (22-32); Chloride 101 mmol/L (98-107); Estimated Glomerular Filt Rate 41 mL/min (>60); Glucose 112 mg/dL (80-110); HEMOLYSIS < 15 (0-50); Potassium 3.4 mmol/L (3.4-5.1); Sodium 138 mmol/L (137-145)
[2022-12-23] MEDS: AMIODARONE 360 MG/200 ML PIGGYBACK 16.7 MG IV ×2 (05:13→16:44)
[2022-12-23] MEDS: ESCITALOPRAM 10 MG TABLET 5 MG PO (08:57)
[2022-12-23] MEDS: APIXABAN 5 MG TABLET PO ×2 (08:57→21:07)
[2022-12-23] MEDS: POTASSIUM CHLORIDE 20 MEQ TAB 40 MEQ PO (09:31)
[2022-12-23] MEDS: BUDESONIDE 0.5 MG/2 ML NEB INH ×2 (09:38→18:12)
[2022-12-23] MEDS: ALBUTEROL/IPRATROPIUM 3 ML AMPUL INH ×3 (09:39→22:53)
[2022-12-23] MEDS: ALBUTEROL 2.5 MG/3 ML NEB (ADULT) INH (11:10)
--- NOTE | 2022-12-23 12:52 | PC.NURSE ---
Addendum entered by Valerie Britton R.N. 12/23/22 17:50: 1301 & 1303 Pt had 2 additional episodes of 6 beat runs of Vtach, Dr Hector updated, cardiology contacted, new orders for digoxin loading dose and 12.5 of metoprolol administered. Pt tolerated well, will continue to monitor. Addendum entered by Valerie Britton R.N. 12/23/22 12:59: 1250 Pt had a 6 beat run of Vtach, HR 185-200 Dr Hector notified, no new orders at this time. Original Note: Dayshift note Amiodarone gtt is infusing at 16.7, heart rate variable 120-185. BP 117/93 MAP 98, she denies chest pain, pressure or dizziness. RA with O2 92-95%, continues to have bibasilar crackles. Denies pain, Purewick in place and draining urine. Plan is to transfer pt to [facility] when a bed becomes available. Bed low and locked, call light within reach, will continue to treat and monitor.
--- NOTE | 2022-12-23 13:15 | P.PN_ITS ---
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 Rate is proving difficult to control. BP is soft still. Cardiology recommending transfer for continued antiarrythmic management and possible cardioversion to [facility], awaiting bed availability. Discussed with cardiology telecommunications clerk whom recommended continuing amiodarone infusion. Rates are still not controlled, and discussed with cardiology again whom recommended low dose metoprolol if BP tolerates and digoxin. Exam Vital Signs (past 8 hours): - 12/23/22 06:00 12/23/22 06:00 12/23/22 07:00 Pulse Rate 129 H Respiratory Rate 15 Blood Pressure 101/77 105/74 Pulse Oximetry 98 Oxygen Delivery Method Oxygen Flow Rate 2 12/23/22 07:00 12/23/22 08:00 12/23/22 08:01 Pulse Rate 123 H 143 H 123 H Respiratory Rate 12 14 12 Blood Pressure Pulse Oximetry 99 97 99 Oxygen Delivery Method Oxygen Flow Rate 12/23/22 08:01 12/23/22 09:00 12/23/22 09:41 Pulse Rate Respiratory Rate Blood Pressure 105/63 Pulse Oximetry 99 Oxygen Delivery Method Room Air Nasal Cannula Oxygen Flow Rate 2 12/23/22 09:00 12/23/22 10:00 12/23/22 10:09 Pulse Rate 160 H 182 H Respiratory Rate 34 H 33 H Blood Pressure 100/66 Pulse Oximetry 97 97 Oxygen Delivery Method Oxygen Flow Rate 12/23/22 10:09 12/23/22 11:00 12/23/22 13:00 Pulse Rate 171 H 145 H Respiratory Rate 20 17 Blood Pressure Pulse Oximetry 95 94 Oxygen Delivery Method Room Air Oxygen Flow Rate 12/23/22 12:00 12/23/22 12:10 12/23/22 12:10 Pulse Rate 163 H 179 H Respiratory Rate 16 26 H Blood Pressure 117/93 H Pulse Oximetry 96 93 Oxygen Delivery Method Oxygen Flow Rate 12/23/22 13:00 12/23/22 13:00 Pulse Rate 175 H Respiratory Rate 24 Blood Pressure 131/76 Pulse Oximetry 97 Oxygen Delivery Method Oxygen Flow Rate Oxygen Delivery Method Room Air Oxygen Flow Rate 2 Narrative Exam Narrative: GEN: no acute distress CV: irregular tachycardic PULM: clear bilaterally ABD: soft, nontender, nondistended, no organomegaly EXT: warm and well perfused 1+ pitting edema NEURO: awake, alert, oriented, no focal deficits Objective Labs 12/23/22 04:15 12/23/22 04:15 Labs: Laboratory Results - last 24 hr 12/23/22 12/23/22 04:15 04:15 WBC 6.3 RBC 4.11 Hgb 11.5 L Hct 34.9 L MCV 84.8 MCH 28.0 MCHC 33.1 RDW 14.6 Plt Count 262 Neut % (Auto) 67.6 Lymph % (Auto) 20.4 L [place] % (Auto) 8.6 Eos % (Auto) 2.6 Baso % (Auto) 0.8 Neut # (Auto) 4200 Lymph # (Auto) 1300 [place] # (Auto) 500 Eos # (Auto) 200 Baso # (Auto) 100 Sodium 138 Potassium 3.4 Chloride 101 Carbon Dioxide 33 H BUN 20 H Creatinine 1.37 H Estimated GFR 41 L BUN/Creatinine Ratio 14.6 Glucose 112 H Calcium 8.5 PFSH Social History household members: spouse Smoking Status: Never smoker Assessment & Plan Assessment & Plan narrative: 1. 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 Pending transfer for antiarrythmic management and possible cardioversion to [facility] per cardiology recommendations. -digoxin 500 mcg dose now, 250 at 6,12 hours. -12.5 mg IR metoprolol if SBP>110. -continue amiodarone. -on home losartan, unable to add at this time due to low-normal BP -continue furosemide as tolerated 2. Atrial fibrillation with RVR -stop diltiazem with new EF -see rate management as discussed above. 3. Hypertension -hold losartan for now 4. Depression -continue escitalopram 5. CKD stage 2-3 -baseline creatinine appears to be 1.29-1.67 -on admit creatinine 1.33 -check daily with diuresis I have discussed plan and obtained history with the patient. Discussed with cardiology as noted above. CODE: Full Proxy: Cornelius Nelson, Quality VTE Deep Vein Thrombosis/Pulmonary Embolism Present on Admission: Yes
[2022-12-23] MEDS: DIGOXIN 500 MCG/2 ML AMPUL IV (13:26)
[2022-12-23] MEDS: METOPROLOL IR 25 MG TABLET 12.5 MG PO ×2 (13:27→17:44)
[2022-12-23] MEDS: DIGOXIN 500 MCG/2 ML AMPUL 250 MCG IV (18:40)
[2022-12-24] VITALS (23 sets, daily range): BP systolic 84–109; BP diastolic 44–77; PULSE 102–147; RESP 15–31; TEMP 36.7–37.1; O2SAT 89–97
[2022-12-24] MEDS: DIGOXIN 500 MCG/2 ML AMPUL 250 MCG IV ×2 (00:13→06:28)
[2022-12-24] MEDS: METOPROLOL IR 25 MG TABLET 12.5 MG PO (00:13)
[2022-12-24] MEDS: FUROSEMIDE 40 MG/4 ML VIAL IV (00:13)
[2022-12-24] MEDS: MELATONIN 3 MG TABLET 6 MG PO (01:50)
[2022-12-24 05:30] LABS: Add Manual Diff / Slide Review NO; Basophils Absolute Auto 0 /uL (0-100); Basophils Percent Auto 0.5 % (0-2); Eosinophils Absolute Auto 200 /uL (0-450); Eosinophils Percent Auto 2.8 % (2-4); Hematocrit 38.3 % (36-46); Hemoglobin 12.7 g/dL (12.0-16.0); Lymphocytes Absolute Auto 1100 /uL (1100-4500); Lymphocytes Percent Auto 12.6 % (25-40); Mean Corpuscular HGB Conc 33.2 % (30-36); Mean Corpuscular Hemoglobin 27.7 PG (26-34); Mean Corpuscular Volume 83.7 fL (80-100); Monocytes Absolute Auto 600 /uL (0-900); Monocytes Percent Auto 7.6 % (3-14); Neutrophils Absolute Auto 6400 /uL (1500-7000); Neutrophils Percent Auto 76.5 % (50-75); Platelet Count 263 X10^3/uL (150-400); Red Blood Cell Count 4.58 X10^6/uL (4.0-5.2); Red Cell Distribution Width 14.5 % (11.6-14.8); White Blood Cell Count 8.3 X10^3/uL (4.5-11.0)
--- NOTE | 2022-12-24 05:47 | PC.NURSE ---
1330- Patient has not slept much this night. Patient states she cannot get comfortable. We tried a mild sleeper med but this did not work. Will monitor.
[2022-12-24 05:50] LABS: Magnesium 1.5 mg/dL (1.6-2.3)
[2022-12-24 05:51] LABS: BUN Creatinine Ratio 16.8 (6-22); Blood Urea Nitrogen 22 mg/dL (7-17); Calcium 8.8 mg/dL (8.4-10.2); Carbon Dioxide 35 mmol/L (22-32); Chloride 94 mmol/L (98-107); Estimated Glomerular Filt Rate 43 mL/min (>60); Glucose 104 mg/dL (80-110); HEMOLYSIS < 15 (0-50); Potassium 3.8 mmol/L (3.4-5.1); Sodium 134 mmol/L (137-145)
[2022-12-24] MEDS: APIXABAN 5 MG TABLET PO (08:07)
[2022-12-24] MEDS: ESCITALOPRAM 10 MG TABLET 5 MG PO (08:07)
[2022-12-24] MEDS: BUDESONIDE 0.5 MG/2 ML NEB INH (09:16)
[2022-12-24] MEDS: POTASSIUM CHLORIDE 20 MEQ TAB 40 MEQ PO (10:02)
--- NOTE | 2022-12-24 10:20 | P.DS_ITS ---
History of Present Illness History of Present Illness Date Patient Seen: 12/22/22 Time Patient Seen: 00:30 Chief complaint: eval heart function-medication dose new t-7 Narrative: Ms. Nelson is a 72W with PMH afib, hypertension who presents to the hospital with fluid retention, shortness of breath. She has a known history of afib. She has been cardioverted last time in October. Between then and today she flipped back into afib. She notes that her transformer repairer doubled her diltiazem dose in response. She has been taking this dose for the last week. Within the same time period she has worsening lower extremity swelling, dyspnea with exertion and orthopnea. No chest pain. No fevers/chills. No cough. In the ED workup was done, vitals notable for afebrile, heart rate 100s-130s, blood pressure 110s/50s. Sats 99% on room air. Labs reviewed by me and notable for WBC 7.8, hgb 11.3. BUN 22, creatinine 1.33. Trop negative. Procal 0.05. BNP 3300. Chest xray reviewed by me and notable for cardiomegaly and pleural effusion. Her cardiology group was called and recommended cardioversion, this was attempted x3 and unsuccessful. She was ordered for lasix and amiodarone drip and admitted for further treatment. Discharge Providers Provider Date of admission: 12/22/22 00:15 Discharge Date: 12/24/22 Primary care physician: Taco Antonio MD Consults: 12/22/22 01:26 Consult to Dietitian, Adult Routine Comment: Reason For Exam: new onset chf, info chf diet Discharge provider: Kyrie Salinas DO Summary Hospital Course Discharge Diagnosis: 1. 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 Pending transfer for antiarrythmic management and possible cardioversion to [facility] per cardiology recommendations. -digoxin 500 mcg dose given without effect -continue amiodarone drip. -on home losartan, unable to add at this time due to low-normal BP -received x6 doses of IV lasix 40 and diuresed 8L -will see Dr. Benson at [place] for [facility] cardioversion once transferred, she is aware 2. Atrial fibrillation with RVR -stop diltiazem with new EF -amio drip, HR still in 130's -continue apixaban 3. Hypertension -hold losartan for now 4. Depression -continue escitalopram 5. 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 Rate is proving difficult to control despite amio drip. BP is soft still so cannot give BB. Diuresed 8L off with IV lasix during admission. Cardiology recommending transfer for continued antiarrythmic management and possible cardioversion to [facility]. Time Spent with Patient Time spent: Greater than 30 minutes Exam Vital Signs (past 8 hours): - 12/24/22 03:00 12/24/22 03:00 12/24/22 04:00 Temperature Pulse Rate 112 H Respiratory Rate 20 Blood Pressure 100/55 L 86/56 L Pulse Oximetry 92 Oxygen Delivery Method Oxygen Flow Rate 0 12/24/22 04:00 12/24/22 05:00 12/24/22 05:00 Temperature 98.1 F Pulse Rate 133 H 128 H Respiratory Rate 18 16 Blood Pressure Pulse Oximetry 94 93 Oxygen Delivery Method Room Air Oxygen Flow Rate 0 12/24/22 05:01 12/24/22 05:01 12/24/22 06:00 Temperature Pulse Rate 128 H Respiratory Rate 23 Blood Pressure 97/63 96/53 L Pulse Oximetry 93 Oxygen Delivery Method Oxygen Flow Rate 0 12/24/22 06:00 12/24/22 06:28 12/24/22 07:00 Temperature Pulse Rate 114 H 102 H Respiratory Rate 18 Blood Pressure 96/53 L 101/73 Pulse Oximetry Oxygen Delivery Method Oxygen Flow Rate 0 12/24/22 07:00 12/24/22 07:46 12/24/22 08:11 Temperature 98.7 F Pulse Rate 115 H Respiratory Rate 19 Blood Pressure Pulse Oximetry 96 Oxygen Delivery Method Room Air Oxygen Flow Rate 0 12/24/22 08:00 12/24/22 08:00 12/24/22 08:30 Temperature 98.2 F Pulse Rate 114 H Respiratory Rate 21 Blood Pressure 97/77 Pulse Oximetry 93 Oxygen Delivery Method Oxygen Flow Rate 12/24/22 09:00 12/24/22 09:00 12/24/22 09:19 Temperature Pulse Rate 122 H 138 H Respiratory Rate 22 16 Blood Pressure 104/64 Pulse Oximetry 92 97 Oxygen Delivery Method Room Air Oxygen Flow Rate Oxygen Delivery Method Room Air Oxygen Flow Rate 0 Narrative Exam Narrative: GEN: no acute distress CV: irregular tachycardic PULM: clear bilaterally ABD: soft, nontender, nondistended, no organomegaly EXT: warm and well perfused 1+ pitting edema NEURO: awake, alert, oriented, no focal deficits Objective Labs 12/24/22 04:18 12/24/22 04:18 Labs: Laboratory Results - last 24 hr 12/24/22 12/24/22 12/24/22 04:18 04:18 04:18 WBC 8.3 RBC 4.58 Hgb 12.7 Hct 38.3 MCV 83.7 MCH 27.7 MCHC 33.2 RDW 14.5 Plt Count 263 Neut % (Auto) 76.5 H Lymph % (Auto) 12.6 L [place] % (Auto) 7.6 Eos % (Auto) 2.8 Baso % (Auto) 0.5 Neut # (Auto) 6400 Lymph # (Auto) 1100 [place] # (Auto) 600 Eos # (Auto) 200 Baso # (Auto) 0 Sodium 134 L Potassium 3.8 Chloride 94 L Carbon Dioxide 35 H BUN 22 H Creatinine 1.31 H Estimated GFR 43 L BUN/Creatinine Ratio 16.8 Glucose 104 Calcium 8.8 Magnesium 1.5 L PFSH Social History household members: spouse Smoking Status: Never smoker Discharge Plan Discharge Plan Patient Disposition: Xfer Acute [facility] Discharge Data Primary Care Provider: Taco Antonio VTE Deep Vein Thrombosis/Pulmonary Embolism Present on Admission: Yes
[2022-12-24] MEDS: MAGNESIUM SULFATE 4 GM/100 ML PIGGYBACK IV (11:12)
--- NOTE | 2022-12-24 11:27 | PC.NURSE ---
Day shift: Pt A&O, denies pain. Tolerated breakfast. BP hypotensive but MAP above 65, provider Dr. Salinas aware. Medications held d/t BP (See AUG). IV magnesium ordered by provider delayed d/t no additional IV access and incompatiable with IV amiodarone. Two RN attempt x2, third RN able to establish second IV access and magnesium begun. Afib RVR on telemetry. Pt updated on acceptance at [facility]. [facility] transported pt at approximately 12:45 with amiodarone and magnesium drips. Report given to ambulance manager of transportation. Report called to [facility], given to Nandini ADKINS.
== END 2022-12-24 12:45 | disposition short-term general hospital (02) | DRG 291 ==
LOC: ED 18:18 → AC 12-22 00:16 → ICU 12-22 00:43
PROVIDERS: Internal Medicine; Admitting Provider Internal Medicine; Emergency Provider Emergency Medicine; PCP Family Medicine; Referring Provider Emergency Medicine; Visit Provider Internal Medicine
DX: I13.0 Hypertensive heart and chronic kidney disease with heart failure and stage 1 through stage 4 chronic kidney disease, or unspecified chronic kidney disease (principal); I50.21 Acute systolic (congestive) heart failure; I48.91 Unspecified atrial fibrillation; F32.A Depression, unspecified; N18.30 Chronic kidney disease, stage 3 unspecified; I42.8 Other cardiomyopathies; Z20.822 Contact with and (suspected) exposure to COVID-19; Z79.01 Long term (current) use of anticoagulants
CPT/HCPCS: 36415; 71046; 80048; 80053; 82550; 83605; 83690; 83735; 83880; 84145; 84484; 85025; 85610; 87040; 87797; 92960; 93306; 94640; 96365; 96375; 99152; 99285; J0282; J1160; J1940; J2704; J3475; J7613

== ENCOUNTER 2023-01-26 10:37 | Inpatient (IN) | payer MEDICARE, OTHER, SELFPAY ==
[2022-12-22 01:17] VITALS: BMI 36.5
[2023-01-26] VITALS (28 sets, daily range): BP systolic 109–157; BP diastolic 41–70; PULSE 42–86; RESP 12–47; TEMP 36.4–36.9; O2SAT 92–100; BMI 33.3; BMI 34.0
[2023-01-26 11:27] LABS: Bacteria Urine Few (2-10); RBC Urine 5-10/HPF (0-5/HPF); WBC Urine 0-1/HPF (0-5/HPF)
[2023-01-26 11:28] LABS: Culture Indicated Urine Cult Not Indicated; Hyaline Casts Urine 0-1/LPF; Squamous Epithelial Cell Urine 0-1 /HPF (0-5/HPF)
[2023-01-26] MEDS: PANTOPRAZOLE 40 MG VIAL 80 MG IV (11:29)
[2023-01-26 11:40] LABS: Add Manual Diff / Slide Review NO; Basophils Absolute Auto 100 /uL (0-100); Basophils Percent Auto 1.3 % (0-2); Eosinophils Absolute Auto 200 /uL (0-450); Eosinophils Percent Auto 2.7 % (2-4); Hematocrit 22.5 % (36-46); Hemoglobin 7.2 g/dL (12.0-16.0); Lymphocytes Absolute Auto 800 /uL (1100-4500); Mean Corpuscular HGB Conc 32.1 % (30-36); Mean Corpuscular Hemoglobin 25.7 PG (26-34); Mean Corpuscular Volume 79.9 fL (80-100); Monocytes Absolute Auto 600 /uL (0-900); Neutrophils Absolute Auto 5300 /uL (1500-7000); Platelet Count 293 X10^3/uL (150-400); Red Blood Cell Count 2.81 X10^6/uL (4.0-5.2); Red Cell Distribution Width 18.6 % (11.6-14.8); White Blood Cell Count 6.9 X10^3/uL (4.5-11.0)
[2023-01-26 11:46] LABS: INR 1.6 (0.9-1.3); Prothrombin Time 18.2 SECONDS (10.1-12.7)
[2023-01-26 11:50] LABS: Alanine Aminotransferase 15 IU/L (<35); Albumin 3.7 g/dL (3.5-5.0); Albumin Globulin Ratio 1.3 (1.0-2.8); Alkaline Phosphatase 65 U/L (38-126); Aspartate Aminotransferase 22 IU/L (14-36); BUN Creatinine Ratio 17.7 (6-22); Bilirubin Total 0.6 mg/dL (0.2-1.3); Blood Urea Nitrogen 34 mg/dL (7-17); Calcium 10.1 mg/dL (8.4-10.2); Carbon Dioxide 29 mmol/L (22-32); Chloride 101 mmol/L (98-107); Estimated Glomerular Filt Rate 27 mL/min (>60); Globulin 2.8 g/dL (1.7-4.1); Glucose 97 mg/dL (80-110); HEMOLYSIS < 15 (0-50); Potassium 4.5 mmol/L (3.4-5.1); Sodium 133 mmol/L (137-145); Total Protein 6.5 g/dL (6.3-8.2)
--- NOTE | 2023-01-26 11:51 | ED_ITS ---
HPI - Recheck/Abnormal Lab/Rx General Chief Complaint: Recheck/Abnormal Lab/Rx Stated Complaint: hemoglobin low Time Seen by Provider: 01/26/23 10:59 Source: patient Mode of arrival: Wheelchair History of Present Illness HPI narrative: Patient brought here from home by for generalized weakness fatigue since beginning of last month, December. Patient's cardiology provider called me to inform that blood work done yesterday showed hemoglobin of 6.9. This is significantly lower than 1 month ago when her hemoglobin was above 12. Patient states she was discharged from [facility] early last month and did notice some black stools but it did resolve. Denies any abdominal pain. No syncope. No shortness of breath. Cardiology provider did lower her metoprolol because of bradycardia. Patient on Eliquis for atrial fibrillation. Last colonoscopy 6 years ago. Related Data Home Medications Medication Instructions Recorded Confirmed albuterol sulfate 90 mcg/actuation 2 puff inhalation Q4H PRN 01/26/23 01/26/23 aerosol inhaler Shortness Of Breath Or Wheezing amiodarone 200 mg tablet 200 mg PO DAILY 01/26/23 01/26/23 apixaban 5 mg tablet (Eliquis) 5 mg PO BID 01/26/23 01/26/23 escitalopram oxalate 5 mg tablet 5 mg PO DAILY 01/26/23 01/26/23 fluticasone 100 mcg-salmeterol 50 1 ea inhalation BID 01/26/23 01/26/23 mcg/dose blistr powdr for inhalation (Advair Diskus) metoprolol succinate 50 mg 150 mg PO BID 01/26/23 01/26/23 tablet,extended release 24 hr spironolactone 25 mg tablet 25 mg PO DAILY 01/26/23 01/26/23 Allergies Allergy/AdvReac Type Severity Reaction Status Date / Time Penicillins Allergy Intermediate Hives Verified 01/26/23 10:44 Sulfa (Sulfonamide Allergy Mild thrush Verified 01/26/23 10:44 Antibiotics) Review of Systems Review of Systems Narrative: GENERAL: negative chills, positive fatigue, malaise, negative fever, sweats. HEENT: negative sinus pain, ear pain, sore throat RESPIRATORY: negative dyspnea, cough CARDIOVASCULAR: negative chest pain, palpitations GASTROINTESTINAL: negative nausea, vomiting, abdominal pain, positive black stool : negative dysuria, frequency, hematuria MUSCULOSKELETAL: negative muscle or bony pain SKIN: negative rash, skin lesions NEUROLOGIC: negative weakness, numbness ROS Unobtainable: All systems reviewed & are unremarkable except as noted in HPI and below Patient History Medical History Chronic atrial fibrillation Systolic heart failure Surgical History No pertinent past surgical history Social History household members: spouse Smoking Status: Never smoker alcohol intake: never Smoking Status: Never smoker alcohol intake frequency: holidays/special occasions only Substance Use Type: does not use Exam Narrative Exam Narrative: GENERAL: in no distress, not toxic not dyspneic HEAD: Normocephalic. EYES: Pupils equal round, there is pale conjunctiva ENT: Mucous membranes moist. NECK: Trachea midline. CARDIOVASCULAR: Bradycardia with Regular rate and rhythm RESPIRATORY: Clear to auscultation. Breath sounds equal bilaterally. No wheezes, rales, or rhonchi. GASTROINTESTINAL: Abdomen soft, non-tender EXTREMITIES: No gross deformities. BACK: No flank tenderness. NEURO: AOx4. SKIN: Warm and dry PSYCH: Not anxious, is cooperative Initial Vital Signs Initial Vital Signs: Vital Signs Temperature 98.5 F 01/26/23 10:41 Pulse Rate 50 L 01/26/23 10:41 Respiratory Rate 20 01/26/23 10:41 Blood Pressure 141/64 H 01/26/23 10:41 Pulse Oximetry 98 01/26/23 10:41 Oxygen Delivery Method Room Air 01/26/23 10:41 Course Orders Ordered: Acetaminophen (Acetaminophen 325 Mg Tablet) 650 mg PO Q6H PRN PRN Reason: Fever/Mild Pain (1-3) Albuterol (Albuterol 2.5 Mg/3 Ml Neb (Adult)) 2.5 mg INH [id number] PRN PRN Reason: Wheezing Last Admin: 01/27/23 04:12 Dose: 2.5 mg Documented By: BASSAM Amiodarone HCl (Amiodarone 200 Mg Tablet) 200 mg PO DAILY BRICE Escitalopram Oxalate (Escitalopram 10 Mg Tablet) 5 mg PO DAILY BRICE Lidocaine (Lidocaine Patch 1 Each Adh..Patch) 1 each TOP DAILY BRICE Stop: 01/29/23 21:19 Last Admin: 01/26/23 21:37 Dose: 1 each Documented By: SHERYL Lidocaine (Remove Lidocaine Patch) 1 each TOP BEDTIME [facility] Last Admin: 01/26/23 21:37 Dose: Not Given Documented By: SHERYL Naloxone HCl (Naloxone 0.4 Mg/Ml Vial) 0.2 mg IV Q2MIN PRN PRN Reason: Opiate Reversal Ondansetron HCl (Ondansetron 4 Mg/2 Ml Inj) 4 mg IV NOW PRN PRN Reason: Nausea And Vomiting Ondansetron HCl (Ondansetron 4 Mg Odt) 4 mg SL NOW PRN PRN Reason: Nausea And Vomiting Ondansetron HCl (Ondansetron 4 Mg/2 Ml Inj) 4 mg IV Q8HR PRN PRN Reason: Nausea And Vomiting Pantoprazole Sodium (Pantoprazole 40 Mg Vial) 40 mg IV BID [facility] Last Admin: 01/26/23 21:38 Dose: 40 mg Documented By: SHERYL Spironolactone (Spironolactone 25 Mg Tablet) 25 mg PO DAILY [facility] Discontinued Medications Diltiazem HCl (Diltiazem Cd 120 Mg Cap) 240 mg PO BID [facility] Acetaminophen (Ofirmev) 1,000 mg in 100 mls @ 400 mls/hr IV NOW ONE Stop: 01/26/23 21:34 Last Admin: 01/26/23 23:08 Dose: Not Given Documented By: SHERYL Acetaminophen (Ofirmev) 1,000 mg in 100 mls @ 400 mls/hr IV NOW ONE Stop: 01/26/23 21:38 Last Infusion: 01/26/23 23:07 Dose: 0 mls/hr Documented By: Admin: 01/26/23 21:41 Dose: 400 mls/hr Documented By: SHERYL Metoprolol Succinate (Metoprolol Er 50 Mg Tablet) 100 mg PO BID [facility] Pantoprazole Sodium (Pantoprazole 40 Mg Vial) 80 mg IV NOW ONE Stop: 01/26/23 10:45 Last Admin: 01/26/23 11:29 Dose: 80 mg Documented By: DELFIN Vital Signs Vital signs: Vital Signs - 8 hr 01/26/23 10:41 01/26/23 11:00 01/26/23 11:01 Temperature 98.5 F Pulse Rate 50 L 58 L Respiratory Rate 20 Blood Pressure 141/64 H 140/60 Pulse Oximetry 98 94 Oxygen Delivery Method Room Air 08/01/23 11:01 01/26/23 11:30 01/26/23 11:31 Temperature Pulse Rate 59 L 43 L 43 L Respiratory Rate 15 20 Blood Pressure Pulse Oximetry 99 98 98 Oxygen Delivery Method 01/26/23 11:31 01/26/23 12:00 01/26/23 12:01 Temperature Pulse Rate 43 L Respiratory Rate 15 Blood Pressure 157/70 H 155/68 H Pulse Oximetry 97 Oxygen Delivery Method 01/26/23 12:01 01/26/23 12:49 01/26/23 12:30 Temperature 97.9 F Pulse Rate 42 L 42 L 42 L Respiratory Rate 12 12 Blood Pressure 147/65 H Pulse Oximetry 97 99 Oxygen Delivery Method Room Air 01/26/23 12:45 01/26/23 12:45 01/26/23 13:05 Temperature 98 F Pulse Rate 42 L 42 L Respiratory Rate 13 18 Blood Pressure 147/65 H 138/65 Pulse Oximetry Oxygen Delivery Method MDM - Recheck/Abnormal Lab/Rx Lab Data 01/27/23 05:38 01/27/23 05:38 Labs: Lab Results 01/26/23 01/26/23 01/26/23 Range/Units 11:01 11:29 11:29 WBC 6.9 (4.5-11.0) X10^3/uL RBC 2.81 L (4.0-5.2) X10^6/uL Hgb 7.2 L (12.0-16.0) g/dL Hct 22.5 L (36-46) % MCV 79.9 L (80-100) fL MCH 25.7 L (26-34) PG MCHC 32.1 (30-36) % RDW 18.6 H (11.6-14.8) % Plt Count 293 (150-400) X10^3/uL Neut % (Auto) 77.0 H (50-75) % Lymph % (Auto) 11.0 L (25-40) % [place] % (Auto) 8.0 (3-14) % Eos % (Auto) 2.7 (2-4) % Baso % (Auto) 1.3 (0-2) % Neut # (Auto) 5300 (5204-5900) /uL Lymph # (Auto) 800 L (7886-5275) /uL [place] # (Auto) 600 (0-900) /uL Eos # (Auto) 200 (0-450) /uL Baso # (Auto) 100 (0-100) /uL PT 18.2 H (10.1-12.7) SECONDS INR 1.6 H (0.9-1.3) APTT 33 (26-36) SECONDS Sodium (137-145) mmol/L Potassium (3.4-5.1) mmol/L Chloride (98-107) mmol/L Carbon Dioxide (22-32) mmol/L BUN (7-17) mg/dL Creatinine (0.52-1.04) mg/dL Estimated GFR (>60) mL/min BUN/Creatinine Ratio (6-22) Glucose (80-110) mg/dL Calcium (8.4-10.2) mg/dL Total Bilirubin (0.2-1.3) mg/dL AST (14-36) IU/L ALT (<35) IU/L Alkaline Phosphatase (38-126) U/L Total Protein (6.3-8.2) g/dL Albumin (3.5-5.0) g/dL Globulin (1.7-4.1) g/dL Albumin/Globulin Ratio (1.0-2.8) Urine RBC 5-10/hpf H (0-5/HPF) Urine WBC 0-1/hpf (0-5/HPF) Ur Squamous Epith Cells 0-1 /hpf (0-5/HPF) Urine Bacteria Few (2-10) H (None) Hyaline Casts 0-1/lpf (None) Ur Culture Indicated? Cult not indicated Blood Type Antibody Screen Crossmatch 01/26/23 01/26/23 Range/Units 11:29 11:29 WBC (4.5-11.0) X10^3/uL RBC (4.0-5.2) X10^6/uL Hgb (12.0-16.0) g/dL Hct (36-46) % MCV (80-100) fL MCH (26-34) PG MCHC (30-36) % RDW (11.6-14.8) % Plt Count (150-400) X10^3/uL Neut % (Auto) (50-75) % Lymph % (Auto) (25-40) % [place] % (Auto) (3-14) % Eos % (Auto) (2-4) % Baso % (Auto) (0-2) % Neut # (Auto) (3964-4193) /uL Lymph # (Auto) (6077-2170) /uL [place] # (Auto) (0-900) /uL Eos # (Auto) (0-450) /uL Baso # (Auto) (0-100) /uL PT (10.1-12.7) SECONDS INR (0.9-1.3) APTT (26-36) SECONDS Sodium 133 L (137-145) mmol/L Potassium 4.5 (3.4-5.1) mmol/L Chloride 101 (98-107) mmol/L Carbon Dioxide 29 (22-32) mmol/L BUN 34 H (7-17) mg/dL Creatinine 1.92 H (0.52-1.04) mg/dL Estimated GFR 27 L (>60) mL/min BUN/Creatinine Ratio 17.7 (6-22) Glucose 97 (80-110) mg/dL Calcium 10.1 (8.4-10.2) mg/dL Total Bilirubin 0.6 (0.2-1.3) mg/dL AST 22 (14-36) IU/L ALT 15 (<35) IU/L Alkaline Phosphatase 65 (38-126) U/L Total Protein 6.5 (6.3-8.2) g/dL Albumin 3.7 (3.5-5.0) g/dL Globulin 2.8 (1.7-4.1) g/dL Albumin/Globulin Ratio 1.3 (1.0-2.8) Urine RBC (0-5/HPF) Urine WBC (0-5/HPF) Ur Squamous Epith Cells (0-5/HPF) Urine Bacteria (None) Hyaline Casts (None) Ur Culture Indicated? Blood Type B Positive Antibody Screen Negative Crossmatch See Detail Urine Dip Bedside Urine Glucose Negative Bedside Urine Bilirubin - Negative Bedside Urine Ketone - Negative Urine Specific [place] 1.010 Bedside Urine Occult Blood ++ Bedside Urine pH 6.0 Bedside Urine Protein - Negative Bedside Urine Urobilinogen - Negative Bedside Urine Nitrite - Negative Bedside Urine Leukocytes - Negative Esterase MDM Narrative Medical decision making narrative: Patient brought here from home by for generalized weakness fatigue since beginning of last month, December. Patient's cardiology provider called me to inform that blood work done yesterday showed hemoglobin of 6.9. This is si gnificantly lower than 1 month ago when her hemoglobin was above 12. Patient states she was discharged from [facility] early last month and did notice some black stools but it did resolve. Denies any abdominal pain. No syncope. No shortness of breath. Cardiology provider did lower her metoprolol because of bradycardia. Patient on Eliquis for atrial fibrillation. Last colonoscopy 6 years ago. After history and exam CBC CMP PT PTT INR EKG type and screen MDM CC: Fatigue Complicating co-morbidities: On Eliquis Data collected from: Patient and and cardiology provider Medical records reviewed: Previous hemoglobin 1 month ago Differential considered: Includes but not limited to upper GI bleed lower GI bleed Exam documented above, pertinent findings include: Nontender abdomen Lab Test results independently reviewed as above. Pertinent findings: He moglobin 7.2 hematocrit 22.5 INR 1.6 BUN 34 creatinine 1.92 Independently reviewed EKG sinus bradycardia rate [address] elevation or depression Consultations: 11:57 a.m.. Spoke with general surgery Dr. Cisneros, he will follow in consult. He will do endoscopy pending discussion with hospitalist 1:[address] Hector, hospitalist, he will admit patient Treatments: Transfusion packed red blood cells Re-evaluations: Reviewed results with patient and family. Agree for transf usion and for admission. Possible endoscopy Discussion: Appropriate for admission for blood transfusion and possible endoscopy. Reviewed with patient and family and agree for admit. Reviewed with general surgery and hospitalist agree for admit plan. Blood transfusion ordered. Diagnosis: Anemia Critical Care Time Critical Care Time Attestation: Critical Care Time 35 minutes: Critical care time is separate from other billable procedures. This critical care time includes consultation with family and other consulting doctors, review of records, and interpretation of data from labs, EKGs etc. Discharge Plan Departure Patient Disposition: Admitted as Observation Clinical Impression: Anemia Admit Date/Time: 01/26/23 13:24 Admit Provider: Azael Hector
[2023-01-26 11:57] LABS: PTT Partial Thromboplastin Tim 33 SECONDS (26-36)
--- NOTE | 2023-01-26 14:55 | PC.NURSE ---
Pt admitted with blood running 96 cc left to infuse
--- NOTE | 2023-01-26 17:24 | P.HP_ITS ---
History of Present Illness History of Present Illness Date Patient Seen: 01/26/23 Time Patient Seen: 17:27 Chief complaint: hemoglobin low Narrative: Ms. Nelson is a 72W with PMH afib, hypertension with recent admission for RVR with acute heart failure with EF 30-35% transferred to [facility] for possible MARTÍN and cardioversion. Patient states she was not cardioverted, but medications were adjusted. Beta kenrick has had to be reduced recently for bradycardia as an outp atient. She presented today after outpatient lab work showed a marked anemia. She does complain of dyspnea on exertion and dizziness with sudden movements. She noted some dark stools after her hospitalization (about 1 month ago now) for a few days that has since returned to normal. She has taken 600-800 mg of ibuprofen intermittently for shoulder pain in the past month. She had some hunger pains this morning, but no prior abdominal pain. She has a little bit of lower extremity edema, but has slightly improved. She took 3 days of lasix recently from her ethnology teacher for dyspnea and edema. SHe obtained blood work after furosemide per her recollection. In the ER, patient's vitals were unremarkable. Hg was 7.2. Creatinine was elevated at 1.92(previously at 1.3). She was admitted for further management of presumed upper GI bleeding, started on protonix. I did discuss with general surgery, whom recommended outpatient endoscopy if h/h is stable with medical management. [facility] Medical History Chronic atrial fibrillation Systolic heart failure Surgical History No pertinent past surgical history Social History household members: spouse Smoking Status: Never smoker alcohol intake: never Meds Home Medications and Allergies Home Medications Medication Instructions Recorded Confirmed Type albuterol sulfate 90 mcg/actuation 2 puff inhalation Q4H PRN 01/26/23 01/26/23 History aerosol inhaler Shortness Of Breath Or Wheezing amiodarone 200 mg tablet 200 mg PO DAILY 01/26/23 01/26/23 History apixaban 5 mg tablet (Eliquis) 5 mg PO BID 01/26/23 01/26/23 History escitalopram oxalate 5 mg tablet 5 mg PO DAILY 01/26/23 01/26/23 History fluticasone 100 mcg-salmeterol 50 1 ea inhalation BID 01/26/23 01/26/23 History mcg/dose blistr powdr for inhalation (Advair Diskus) metoprolol succinate 50 mg 150 mg PO BID 01/26/23 01/26/23 History tablet,extended release 24 hr spironolactone 25 mg tablet 25 mg PO DAILY 01/26/23 01/26/23 History Allergies Allergy/AdvReac Type Severity Reaction Status Date / Time Penicillins Allergy Intermediate Hives Verified 01/26/23 10:44 Sulfa (Sulfonamide Allergy Mild thrush Verified 01/26/23 10:44 Antibiotics) Review of Systems Review of Systems Narrative: All other systems reviewed with the patient and are negative unless otherwise stated. Exam Vital Signs (past 8 hours): - 01/26/23 10:41 01/26/23 11:00 01/26/23 11:01 Temperature 98.5 F Pulse Rate 50 L 58 L Respiratory Rate 20 Blood Pressure 141/64 H 140/60 Pulse Oximetry 98 94 Oxygen Delivery Method Room Air Oxygen Flow Rate 01/26/23 11:01 01/26/23 11:30 01/26/23 11:31 Temperature Pulse Rate 59 L 43 L 43 L Respiratory Rate 15 20 Blood Pressure Pulse Oximetry 99 98 98 Oxygen Delivery Method Oxygen Flow Rate 01/26/23 11:31 01/26/23 12:00 01/26/23 12:01 Temperature Pulse Rate 43 L Respiratory Rate 15 Blood Pressure 157/70 H 155/68 H Pulse Oximetry 97 Oxygen Delivery Method Oxygen Flow Rate 01/26/23 12:01 01/26/23 12:49 01/26/23 12:30 Temperature 97.9 F Pulse Rate 42 L 42 L 42 L Respiratory Rate 12 12 Blood Pressure 147/65 H Pulse Oximetry 97 99 Oxygen Delivery Method Room Air Oxygen Flow Rate 01/26/23 12:45 01/26/23 12:45 01/26/23 13:05 Temperature 98 F Pulse Rate 42 L 42 L Respiratory Rate 13 18 Blood Pressure 147/65 H 138/65 Pulse Oximetry Oxygen Delivery Method Oxygen Flow Rate 01/26/23 13:00 01/26/23 13:01 01/26/23 13:01 Temperature Pulse Rate 42 L Respiratory Rate 26 H 12 Blood Pressure 152/66 H Pulse Oximetry 96 Oxygen Delivery Method Oxygen Flow Rate 01/26/23 13:04 01/26/23 13:04 01/26/23 13:30 Temperature Pulse Rate 42 L 43 L Respiratory Rate 13 Blood Pressure 138/65 Pulse Oximetry 97 97 Oxygen Delivery Method Oxygen Flow Rate 01/26/23 13:31 01/26/23 13:31 01/26/23 14:00 Temperature Pulse Rate 43 L 86 Respiratory Rate 19 47 H Blood Pressure 156/68 H Pulse Oximetry 92 Oxygen Delivery Method Oxygen Flow Rate 01/26/23 14:03 01/26/23 14:03 01/26/23 14:30 Temperature Pulse Rate 50 L 45 L Respiratory Rate 21 32 H Blood Pressure 136/63 Pulse Oximetry 100 99 Oxygen Delivery Method Oxygen Flow Rate 01/26/23 15:11 01/26/23 15:19 01/26/23 15:22 Temperature 97.7 F 97.7 F Pulse Rate 46 L 46 L Respiratory Rate 15 17 Blood Pressure 144/44 H 144/44 H Pulse Oximetry 97 100 Oxygen Delivery Method Room Air Oxygen Flow Rate 0 0 01/26/23 16:21 01/26/23 16:39 Temperature 97.5 F L 97.8 F Pulse Rate 47 L 45 L Respiratory Rate 17 17 Blood Pressure 141/52 H 148/50 H Pulse Oximetry Oxygen Delivery Method Oxygen Flow Rate Oxygen Delivery Method Room Air Oxygen Flow Rate 0 Narrative Exam Narrative: General:? Patient is well developed and well nourished, in no distress at this time. HEENT:? Normocephalic, atraumatic, extraocular muscles intact, oral pharynx is clear and mucous membranes are moist. Neck: supple and symmetric, trachea is midline, no cervical adenopathy. Negative for JVD Chest:? Normal AP diameter and contour without kyphoscoliosis, no tachypnea, equal chest rise bilaterally. Lungs:? CTA b/l no wheezing rhonchi or rales. Cardio:?bradycardic, irregularly irregular with no m/r/g. Abdomen: S NT ND. Musculoskeletal:? Muscle strength and tone are equal within normal limits, no deformity. Extremities: trace bilateral pitting lower extremity edema. No joint effusions. No cyanosis or clubbing. Skin:? Pale,? Warm to touch,dry and intact without rashes, ulcerations or petechiae.? Neuro:? Alert and orientated x3,? sensation to touch intact in all extremities, no gross deficits noted of cranial nerves. Psych:? Patient has a well-kept appearance, appropriate affect, mental status attitude thought context and judgment are appropriate for age. Objective ECG Impression: Sinus bradycardia without acute ischemia, rate 43. Labs 01/26/23 11:29 01/26/23 11:29 Labs: Laboratory Results - last 24 hr 01/26/23 01/26/23 01/26/23 11:01 11:29 11:29 WBC 6.9 RBC 2.81 L Hgb 7.2 L Hct 22.5 L MCV 79.9 L MCH 25.7 L MCHC 32.1 RDW 18.6 H Plt Count 293 Neut % (Auto) 77.0 H Lymph % (Auto) 11.0 L [place] % (Auto) 8.0 Eos % (Auto) 2.7 Baso % (Auto) 1.3 Neut # (Auto) 5300 Lymph # (Auto) 800 L [place] # (Auto) 600 Eos # (Auto) 200 Baso # (Auto) 100 PT 18.2 H INR 1.6 H APTT 33 Sodium Potassium Chloride Carbon Dioxide BUN Creatinine Estimated GFR BUN/Creatinine Ratio Glucose Calcium Total Bilirubin AST ALT Alkaline Phosphatase Total Protein Albumin Globulin Albumin/Globulin Ratio Urine RBC 5-10/hpf H Urine WBC 0-1/hpf Ur Squamous Epith Cells 0-1 /hpf Urine Bacteria Few (2-10) H Hyaline Casts 0-1/lpf Ur Culture Indicated? Cult not indicated Blood Type Antibody Screen Crossmatch 01/26/23 01/26/23 11:29 11:29 WBC RBC Hgb Hct MCV MCH MCHC RDW Plt Count Neut % (Auto) Lymph % (Auto) [place] % (Auto) Eos % (Auto) Baso % (Auto) Neut # (Auto) Lymph # (Auto) [place] # (Auto) Eos # (Auto) Baso # (Auto) PT INR APTT Sodium 133 L Potassium 4.5 Chloride 101 Carbon Dioxide 29 BUN 34 H Creatinine 1.92 H Estimated GFR 27 L BUN/Creatinine Ratio 17.7 Glucose 97 Calcium 10.1 Total Bilirubin 0.6 AST 22 ALT 15 Alkaline Phosphatase 65 Total Protein 6.5 Albumin 3.7 Globulin 2.8 Albumin/Globulin Ratio 1.3 Urine RBC Urine WBC Ur Squamous Epith Cells Urine Bacteria Hyaline Casts Ur Culture Indicated? Blood Type B Positive Antibody Screen Negative Crossmatch See Detail Assessment & Plan Assessment & Plan narrative: 1. Acute blood loss anemia secondary to presumed GI bleeding and peptic ulcer disease - transfusion ordered by ER provider for symptomatic anemia - continue to follow h/h - likely secondary to NSAID use with anticoagulation. Bleeding may have been shortly after discharge based on history. - discussed with surgery, can have outpatient EGD ideally unless bleeding continues - continue PPI IV BID for now. - okay for diet 2. Chronic atrial fibrillation - continue home amiodarone, and reduce beta kenrick given rate in low 40s to 100 mg BID. Monitor with tele 3. KARIN on CKD stage III - probably secondary to anemia, may be recent diuretic use as well. - continue to monitor, hold on diuresis. 4. HTN - continue home medications 5. Depression, chronic - continue escitalopram 6. Recently diagnosed systolic heart failure - thought to be tachyarrythmia induced. Recently diuresed with cardiology but also markedly anemic. - consider diuresis with transfusion. - not on jhon-inhibition per cardiology management, will not add. Code: Full, surrogate Cornelius Nelson, Additional history obtained via discussion with ER provider, Discussed with general surgery as noted above. I have reviewed patient's EKG, documentation, and laboratory evaluation. I have utilized all available immediate resources to obtain, update, or review the patient's current medications. Dispo: admit observation, possible discharge tomorrow depending on h/h trend and kidney function. Quality VTE Deep Vein Thrombosis/Pulmonary Embolism Present on Admission: No
[2023-01-26 18:39] LABS: Hematocrit 26.1 % (36-46); Hemoglobin 8.7 g/dL (12.0-16.0)
[2023-01-26] MEDS: LIDOCAINE PATCH 1 EACH ADH..PATCH TOP (21:37)
[2023-01-26] MEDS: PANTOPRAZOLE 40 MG VIAL IV (21:38)
[2023-01-26] MEDS: ACETAMINOPHEN IV 1,000 MG/100 ML VIAL 400 MG IV (21:41)
[2023-01-27] VITALS (16 sets, daily range): BP systolic 114–160; BP diastolic 45–80; PULSE 43–118; RESP 16–20; TEMP 36.2–36.9; O2SAT 94–99
[2023-01-27 02:04] LABS: Hematocrit 24.9 % (36-46); Hemoglobin 8.3 g/dL (12.0-16.0); Mean Corpuscular HGB Conc 33.1 % (30-36); Mean Corpuscular Hemoglobin 26.9 PG (26-34); Mean Corpuscular Volume 81.1 fL (80-100); Platelet Count 254 X10^3/uL (150-400); Red Blood Cell Count 3.07 X10^6/uL (4.0-5.2); Red Cell Distribution Width 17.7 % (11.6-14.8); White Blood Cell Count 7.2 X10^3/uL (4.5-11.0)
[2023-01-27] MEDS: ALBUTEROL 2.5 MG/3 ML NEB (ADULT) INH (04:12)
[2023-01-27 06:00] LABS: Add Manual Diff / Slide Review NO; Basophils Absolute Auto 100 /uL (0-100); Basophils Percent Auto 1.2 % (0-2); Eosinophils Absolute Auto 200 /uL (0-450); Eosinophils Percent Auto 3.8 % (2-4); Hematocrit 23.8 % (36-46); Lymphocytes Absolute Auto 900 /uL (1100-4500); Lymphocytes Percent Auto 13.7 % (25-40); Mean Corpuscular HGB Conc 33.7 % (30-36); Monocytes Absolute Auto 600 /uL (0-900); Monocytes Percent Auto 8.9 % (3-14); Neutrophils Absolute Auto 4700 /uL (1500-7000); Neutrophils Percent Auto 72.4 % (50-75); Platelet Count 248 X10^3/uL (150-400); Red Blood Cell Count 2.98 X10^6/uL (4.0-5.2); Red Cell Distribution Width 17.7 % (11.6-14.8); White Blood Cell Count 6.5 X10^3/uL (4.5-11.0)
[2023-01-27 06:09] LABS: Alanine Aminotransferase 13 IU/L (<35); Albumin 2.9 g/dL (3.5-5.0); Albumin Globulin Ratio 1.2 (1.0-2.8); Alkaline Phosphatase 50 U/L (38-126); Aspartate Aminotransferase 21 IU/L (14-36); BUN Creatinine Ratio 18.2 (6-22); Bilirubin Total 0.9 mg/dL (0.2-1.3); Blood Urea Nitrogen 30 mg/dL (7-17); Carbon Dioxide 28 mmol/L (22-32); Chloride 102 mmol/L (98-107); Estimated Glomerular Filt Rate 33 mL/min (>60); Globulin 2.5 g/dL (1.7-4.1); Glucose 113 mg/dL (80-110); HEMOLYSIS < 15 (0-50); Magnesium 1.7 mg/dL (1.6-2.3); Potassium 4.1 mmol/L (3.4-5.1); Sodium 133 mmol/L (137-145); Total Protein 5.4 g/dL (6.3-8.2)
[2023-01-27] MEDS: ESCITALOPRAM 10 MG TABLET 5 MG PO (09:50)
[2023-01-27] MEDS: PANTOPRAZOLE 40 MG VIAL IV ×2 (09:50→21:50)
[2023-01-27] MEDS: SPIRONOLACTONE 25 MG TABLET PO (09:50)
[2023-01-27] MEDS: LIDOCAINE PATCH 1 EACH ADH..PATCH TOP (09:53)
[2023-01-27] MEDS: MAGNESIUM CHLORIDE 64 MG TABLET 128 MG PO (09:58)
[2023-01-27] MEDS: AMIODARONE 200 MG TABLET PO (10:04)
--- NOTE | 2023-01-27 13:16 | PM.PN.1 ---
Subjective Subjective Interval history: 72 F admitted with anemia. Stools guiaic negative today. H/h continued to downtrend this morning. Repeat hg pending. Patient with continued dyspnea, some wheezing when getting up to the bathroom this morning. Denies chest pain. Some nonproductive cough. No LE edema. Exam Vital Signs (past 8 hours): - 01/27/23 08:00 01/27/23 09:50 01/27/23 12:00 Temperature 97.2 F L 97.1 F L Pulse Rate 46 L 48 L Respiratory Rate 20 17 Blood Pressure 140/47 L 143/53 H Pulse Oximetry 98 98 98 Oxygen Delivery Method Room Air Oxygen Flow Rate 0 0 Oxygen Delivery Method Room Air Oxygen Flow Rate 0 Narrative Exam Narrative: General:? Patient is well developed and well nourished, in no distress at this time. HEENT:? Normocephalic, atraumatic, extraocular muscles intact, oral pharynx is clear and mucous membranes are moist. Neck: supple and symmetric, trachea is midline, no cervical adenopathy. Negative for JVD Chest:? Normal AP diameter and contour without kyphoscoliosis, no tachypnea, equal chest rise bilaterally. Lungs:? CTA b/l no wheezing rhonchi or rales. Cardio:?bradycardic, regular rhythm with no m/r/g. Abdomen: S NT ND. Musculoskeletal:? Muscle strength and tone are equal within normal limits, no deformity. Extremities: trace bilateral pitting lower extremity edema. No joint effusions. No cyanosis or clubbing. Skin:? Pale,? Warm to touch,dry and intact without rashes, ulcerations or petechiae.? Neuro:? Alert and orientated x3,? sensation to touch intact in all extremities, no gross deficits noted of cranial nerves. Psych:? Patient has a well-kept appearance, appropriate affect, mental status attitude thought context and judgment are appropriate for age. Objective Labs 01/27/23 05:38 01/27/23 05:38 Labs: Laboratory Results - last 24 hr 01/26/23 01/26/23 01/27/23 11:29 18:12 01:53 WBC 7.2 RBC 3.07 L Hgb 8.7 L 8.3 L Hct 26.1 L 24.9 L MCV 81.1 MCH 26.9 MCHC 33.1 RDW 17.7 H Plt Count 254 Neut % (Auto) Lymph % (Auto) [place] % (Auto) Eos % (Auto) Baso % (Auto) Neut # (Auto) Lymph # (Auto) [place] # (Auto) Eos # (Auto) Baso # (Auto) Sodium Potassium Chloride Carbon Dioxide BUN Creatinine Estimated GFR BUN/Creatinine Ratio Glucose Calcium Magnesium Total Bilirubin AST ALT Alkaline Phosphatase Total Protein Albumin Globulin Albumin/Globulin Ratio Blood Type B Positive Antibody Screen Negative Crossmatch See Detail 01/27/23 01/27/23 05:38 05:38 WBC 6.5 RBC 2.98 L Hgb 8.0 L Hct 23.8 L MCV 80.0 MCH 27.0 MCHC 33.7 RDW 17.7 H Plt Count 248 Neut % (Auto) 72.4 Lymph % (Auto) 13.7 L [place] % (Auto) 8.9 Eos % (Auto) 3.8 Baso % (Auto) 1.2 Neut # (Auto) 4700 Lymph # (Auto) 900 L [place] # (Auto) 600 Eos # (Auto) 200 Baso # (Auto) 100 Sodium 133 L Potassium 4.1 Chloride 102 Carbon Dioxide 28 BUN 30 H Creatinine 1.65 H Estimated GFR 33 L BUN/Creatinine Ratio 18.2 Glucose 113 H Calcium 9.0 Magnesium 1.7 Total Bilirubin 0.9 AST 21 ALT 13 Alkaline Phosphatase 50 Total Protein 5.4 L Albumin 2.9 L Globulin 2.5 Albumin/Globulin Ratio 1.2 Blood Type Antibody Screen [facility] Medical History Chronic atrial fibrillation Systolic heart failure Surgical History No pertinent past surgical history Social History household members: spouse Smoking Status: Never smoker alcohol intake: never Assessment & Plan Assessment & Plan narrative: 1. Acute blood loss anemia secondary to presumed GI bleeding and peptic ulcer disease - transfusion ordered by ER provider for symptomatic anemia - continue to follow h/h today - likely secondary to NSAID use with anticoagulation. Bleeding may have been shortly after discharge based on history. - discussed with surgery, can have outpatient EGD ideally unless bleeding continues - continue PPI IV BID for now. - okay for diet 2. Chronic atrial fibrillation - continue home amiodarone, and reduce beta kenrick given rate in low 40s to 100 mg BID. Monitor with tele 3. KARIN on CKD stage III - probably secondary to anemia, may be recent diuretic use as well. - continue to monitor, Cr slightly improved today. 4. HTN - continue home medications 5. Depression, chronic - continue escitalopram 6. Recently diagnosed systolic heart failure - thought to be tachyarrythmia induced. Recently diuresed with cardiology but also markedly anemic. - consider diuresis, though continue to hold. - not on jhon-inhibition per cardiology management, will not add. Code: Full, surrogate Cornelius Nelson, Additional history obtained via discussion with ER provider, Discussed with general surgery as noted above. I have reviewed patient's EKG, documentation, and laboratory evaluation. I have utilized all available immediate resources to obtain, update, or review the patient's current medications. Dispo: change to inpatient. Possible discharge tomorrow if h/h stable and creatinine continues to improve. Quality VTE Deep Vein Thrombosis/Pulmonary Embolism Present on Admission: No
[2023-01-27 13:19] LABS: Hemoglobin 8.7 g/dL (12.0-16.0)
--- NOTE | 2023-01-27 15:09 | CM.DANOTE ---
Initial DCP Assessment Note Pt is a 72 yo female, resident of [place], per Dr Hector admitted for management of: Acute blood loss anemia secondary to presumed GI bleeding and peptic ulcer disease Chronic atrial fibrillation KARIN on CKD stage III HTN Recently diagnosed systolic heart failure PCP: Taco Antonio Payer: [facility]/[employer] Met w/patient to introduce self and role. Patient says she lives independently w/her spouse and plans to return home upon discharge. Patient denies needs from this [employer] According to Dr Hector, patient may be able to discharge as soon as tomorrow if H/H stable No barriers identified at this time to patient's safe discharge home w/family to assist; close outpatient f/u recommended. CM team will plan to follow closely in case any DC needs or concerns arise MARY Kay Discharge Planning/Care Management CM Discharge Assessment Start: 01/27/23 15:07 Freq: Status: Active Protocol: Document 01/27/23 15:07 BRII (Rec: 01/27/23 15:09 BRII [id number]) Discharge Planning Assessment Assigned Stock Turner MARY Osuna DPOA/Assigned Designee Name Cornelius Nelson, spouse Contact Information [phone] Advance Directives? No History Provided By Patient,Medical Record Prior Living Arrangements House Household Members spouse Type of transporation used prior to Drives own vehicle admit Independent with ADL's Yes Is patient alert and oriented? Yes Barriers to Discharge No Comment DC home expected when medically stable Discharge Plan Home Transportation Arrangement Likely spouse Referrals Initiated None needed
[2023-01-27] MEDS: ALBUTEROL/IPRATROPIUM 3 ML AMPUL INH (20:22)
[2023-01-28] VITALS (7 sets, daily range): BP systolic 124–137; BP diastolic 51–66; PULSE 52–91; RESP 16–20; TEMP 36.1–37.1; O2SAT 94–99
[2023-01-28 01:39] LABS: Add Manual Diff / Slide Review NO; Basophils Absolute Auto 100 /uL (0-100); Basophils Percent Auto 1.1 % (0-2); Eosinophils Absolute Auto 200 /uL (0-450); Eosinophils Percent Auto 3.3 % (2-4); Hematocrit 26.3 % (36-46); Hemoglobin 8.8 g/dL (12.0-16.0); Lymphocytes Absolute Auto 1300 /uL (1100-4500); Lymphocytes Percent Auto 16.9 % (25-40); Mean Corpuscular HGB Conc 33.3 % (30-36); Mean Corpuscular Hemoglobin 27.1 PG (26-34); Mean Corpuscular Volume 81.2 fL (80-100); Monocytes Absolute Auto 700 /uL (0-900); Monocytes Percent Auto 8.9 % (3-14); Neutrophils Absolute Auto 5200 /uL (1500-7000); Neutrophils Percent Auto 69.8 % (50-75); Platelet Count 275 X10^3/uL (150-400); Red Blood Cell Count 3.24 X10^6/uL (4.0-5.2); Red Cell Distribution Width 18.1 % (11.6-14.8); White Blood Cell Count 7.5 X10^3/uL (4.5-11.0)
[2023-01-28 01:45] LABS: Alanine Aminotransferase 14 IU/L (<35); Albumin 3.2 g/dL (3.5-5.0); Albumin Globulin Ratio 1.2 (1.0-2.8); Alkaline Phosphatase 64 U/L (38-126); Aspartate Aminotransferase 22 IU/L (14-36); BUN Creatinine Ratio 15.7 (6-22); Bilirubin Total 0.4 mg/dL (0.2-1.3); Blood Urea Nitrogen 26 mg/dL (7-17); Calcium 9.2 mg/dL (8.4-10.2); Carbon Dioxide 29 mmol/L (22-32); Chloride 101 mmol/L (98-107); Estimated Glomerular Filt Rate 32 mL/min (>60); Globulin 2.7 g/dL (1.7-4.1); Glucose 99 mg/dL (80-110); HEMOLYSIS < 15 (0-50); Magnesium 1.9 mg/dL (1.6-2.3); Potassium 4.3 mmol/L (3.4-5.1); Sodium 134 mmol/L (137-145); Total Protein 5.9 g/dL (6.3-8.2)
--- NOTE | 2023-01-28 06:37 | PC.NURSE ---
Starting at 0045 Pt had repeated 1-6 min runs of sinus tach in the 130's-140's alternating with 30-90 sec runs of sinus lani ~50 bpm. Provider made aware at 0055, AM labs drawn early. Resolved without intervention at ~0300.
[2023-01-28] MEDS: ALBUTEROL/IPRATROPIUM 3 ML AMPUL INH (07:17)
[2023-01-28] MEDS: ESCITALOPRAM 10 MG TABLET 5 MG PO (08:21)
[2023-01-28] MEDS: SPIRONOLACTONE 25 MG TABLET PO (08:22)
[2023-01-28] MEDS: AMIODARONE 200 MG TABLET PO (08:22)
[2023-01-28] MEDS: PANTOPRAZOLE 40 MG VIAL IV (08:24)
--- NOTE | 2023-01-28 09:38 | PM.DS.1 ---
History of Present Illness History of Present Illness Date Patient Seen: 01/28/23 Time Patient Seen: 09:38 Chief complaint: hemoglobin low Narrative: Ms. Nelson is a 72W with PMH afib, hypertension with recent admission for RVR with acute heart failure with EF 30-35% transferred to [facility] for possible MARTÍN and cardioversion. Patient states she was not cardioverted, but medications were adjusted. Beta kenrick has had to be reduced recently for bradycardia as an outpatient. She presented today after outpatient lab work showed a marked anemia. She does complain of dyspnea on exertion and dizziness with sudden movements. She noted some dark stools after her hospitalization (about 1 month ago now) for a few days that has since returned to normal. She has taken 600-800 mg of ibuprofen intermittently for shoulder pain in the past month. She had some hunger pains this morning, but no prior abdominal pain. She has a little bit of lower extremity edema, but has slightly improved. She took 3 days of lasix recently from her commercial fisherman for dyspnea and edema. SHe obtained blood work after furosemide per her recollection. In the ER, patient's vitals were unremarkable. Hg was 7.2. Creatinine was elevated at 1.92(previously at 1.3). She was admitted for further management of presumed upper GI bleeding, started on protonix. I did discuss with general surgery, whom recommended outpatient endoscopy if h/h is stable with medical management. Discharge Providers Provider Date of admission: 01/27/23 10:41 Discharge Date: 01/28/23 Primary care physician: Taco Antonio MD Discharge provider: Azael Hector DO Summary Hospital Course Discharge Diagnosis: 1. Acute blood loss anemia secondary to presumed GI bleeding and peptic ulcer disease 2. Chronic atrial fibrillation 3. KARIN on CKD stage III 4. HTN 5. Depression, chronic 6. Recently diagnosed systolic heart failure Hospital Course: This is a 72 year old female admitted with presumed acute blood loss anemia and KARIN. She was transfused in the emergency room with appropriate response to transfusion. Her h/h did decline after transfusion, but then stabilized with Hg in the upper 8s x3 prior to discharge. She was started on IV protonix for possible gastric bleeding given NSAID use in the setting of eliquis. Eliquis was held on admission and at discharge. Creatinine did improve slightly after transfusion, but may represent progression of CKD but further testing and monitoring is recommended as an outpatient with primary care provider. Discussed with general surgery, whom deferred evaluation to outpatient given stable h/h, and recently diagnosed heart failure. Outpatient EGD and colonoscopy is recommended for evaluation, stool guaiac testing was negative prior to discharge here. She was discharged on oral PPI BID for presumed PUD. While here her home beta kenrick was continued at 100 mg BID (from 150) given soft BP, but her rate increased slightly to the 90s so she was recommended to resume prior 150 mg BID at discharge. Time Spent with Patient Time spent: Greater than 30 minutes Exam Vital Signs (past 8 hours): - 01/28/23 03:00 01/28/23 04:20 01/28/23 07:17 Temperature 97.0 F L Pulse Rate 52 L 52 L Respiratory Rate 20 16 Blood Pressure 134/53 L Pulse Oximetry 97 96 99 Oxygen Delivery Method Room Air Room Air Oxygen Flow Rate 0 0 0 Fraction of Inspired Oxygen 21 01/28/23 07:46 01/28/23 07:00 Temperature 97.9 F Pulse Rate 91 H Respiratory Rate 18 Blood Pressure 124/66 Pulse Oximetry 99 96 Oxygen Delivery Method Room Air Oxygen Flow Rate 0 Fraction of Inspired Oxygen Fraction of Inspired Oxygen 21 SaO2/FiO2 Ratio 471 Oxygen Delivery Method Room Air Oxygen Flow Rate 0 Narrative Exam Narrative: General:? Patient is well developed and well nourished, in no distress at this time. HEENT:? Normocephalic, atraumatic, extraocular muscles intact, oral pharynx is clear and mucous membranes are moist. Neck: supple and symmetric, trachea is midline, no cervical adenopathy. Negative for JVD Chest:? Normal AP diameter and contour without kyphoscoliosis, no tachypnea, equal chest rise bilaterally. Lungs:? CTA b/l no wheezing rhonchi or rales. Cardio:?bradycardic, regular rhythm with no m/r/g. Abdomen: S NT ND. Musculoskeletal:? Muscle strength and tone are equal within normal limits, no deformity. Extremities: trace bilateral pitting lower extremity edema. No joint effusions. No cyanosis or clubbing. Skin:? Pale,? Warm to touch,dry and intact without rashes, ulcerations or petechiae.? Neuro:? Alert and orientated x3,? sensation to touch intact in all extremities, no gross deficits noted of cranial nerves. Psych:? Patient has a well-kept appearance, appropriate affect, mental status attitude thought context and judgment are appropriate for age. Objective Labs 01/28/23 01:26 01/28/23 01:26 Labs: Laboratory Results - last 24 hr 01/27/23 01/28/23 01/28/23 13:00 01:26 01:26 WBC 7.5 RBC 3.24 L Hgb 8.7 L 8.8 L Hct 26.3 L MCV 81.2 MCH 27.1 MCHC 33.3 RDW 18.1 H Plt Count 275 Neut % (Auto) 69.8 Lymph % (Auto) 16.9 L [place] % (Auto) 8.9 Eos % (Auto) 3.3 Baso % (Auto) 1.1 Neut # (Auto) 5200 Lymph # (Auto) 1300 [place] # (Auto) 700 Eos # (Auto) 200 Baso # (Auto) 100 Sodium 134 L Potassium 4.3 Chloride 101 Carbon Dioxide 29 BUN 26 H Creatinine 1.66 H Estimated GFR 32 L BUN/Creatinine Ratio 15.7 Glucose 99 Calcium 9.2 Magnesium 1.9 Total Bilirubin 0.4 AST 22 ALT 14 Alkaline Phosphatase 64 Total Protein 5.9 L Albumin 3.2 L Globulin 2.7 Albumin/Globulin Ratio 1.2 [facility] Medical History Chronic atrial fibrillation Systolic heart failure Surgical History No pertinent past surgical history Social History household members: spouse Smoking Status: Never smoker alcohol intake: never Discharge Plan Discharge Plan Patient Disposition: Home Provider Discharge Comment: You were admitted to the hospital with anemia. Your stools did not have blood in them, but this is still probably the most likely source or the bleeding happened a while ago. Recommend EGD and colonoscopy as an outpatient, but discuss with PCP. It was deferred here given your recent diagnosis of heart failure. Cardiology follow up on Wednesday, you can also discuss admission and consideration of watchman procedure. Eliquis has been stopped for now. Try to follow up with PCP office next week to discuss referrals and possible ongoing need for acid reducing medication that was started (pantoprazole). Discharge orders & Medications Prescriptions: New pantoprazole 40 mg tablet,delayed release (DR/EC) 40 mg PO BID 30 Days Qty: 60 0RF Continued amiodarone 200 mg tablet 200 mg PO DAILY metoprolol succinate 50 mg tablet extended release 24 hr 150 mg PO BID spironolactone 25 mg tablet 25 mg PO DAILY fluticasone propion-salmeterol [Advair Diskus] 100-50 mcg/dose blister with device 1 ea inhalation BID albuterol sulfate 90 mcg/actuation HFA aerosol inhaler 2 puff INHALATION Q4H PRN (Reason: Shortness Of Breath Or Wheezing) escitalopram oxalate 5 mg tablet 5 mg PO DAILY Discontinued Eliquis 5 mg tablet 5 mg PO BID Follow up/Referrals: Taco Antonio MD [Primary Care Provider] - Diet/Activity/Treatments Diet: Diet as Tolerated and Low-sodium Activity: As tolerated Visit Report/Discharge Packet Stand Alone Forms: Patient Portal/API, Stroke Signs & Symptoms Discharge Data Primary Care Provider: Taco Antonio Discharges patient from system. Discharge Date/Time: 01/28/23 10:20 Quality VTE Deep Vein Thrombosis/Pulmonary Embolism Present on Admission: No
--- NOTE | 2023-01-28 10:19 | PC.NURSE ---
Pt denies any issues. Amb. in hallway w/o incidence. MD here to see; D/C instructions . HL & Tele discontinued. Home instructions given w/ understanding Pt escorted by staff via W/C to waiting vehicle. D/C in stable condition.
== END 2023-01-28 10:20 | disposition home or self-care (01) | DRG 378 ==
LOC: ED 12:09 → AC 13:25
PROVIDERS: Internal Medicine; Admitting Provider Internal Medicine; Emergency Provider Emergency Medicine; PCP Family Medicine; Visit Provider Internal Medicine
DX: K27.4 Chronic or unspecified peptic ulcer, site unspecified, with hemorrhage (principal); D62 Acute posthemorrhagic anemia; I48.20 Chronic atrial fibrillation, unspecified; N17.9 Acute kidney failure, unspecified; I13.0 Hypertensive heart and chronic kidney disease with heart failure and stage 1 through stage 4 chronic kidney disease, or unspecified chronic kidney disease; I50.30 Unspecified diastolic (congestive) heart failure; N18.30 Chronic kidney disease, stage 3 unspecified; F32.A Depression, unspecified; Z79.01 Long term (current) use of anticoagulants
CPT/HCPCS: 36415; 36430; 80053; 81003; 81015; 83735; 85014; 85018; 85025; 85027; 85610; 85730; 86850; 86900; 86901; 93005; 93010; 94640; 94760; 96374; 99285; 99291; G0378; P9016; C9113; J0131; J7613

== ENCOUNTER → 2023-01-29 08:14 | Outpatient (CLI) | payer MEDICARE, OTHER, SELFPAY ==
[2022-12-22 01:17] VITALS: BMI 36.5
[2023-01-26 14:49] VITALS: BMI 34.0
--- NOTE | 2023-01-29 | DI.ECHO.S_ITS ---
[place] +---------+ [facility] +---------+ : : [address] : : : : [id number] : : : : Phone: [phone]+ Echocardiogram Report + + :Name: MAKENZIE COVARRUBIAS Study Date: 01/29/2023 Height: 65 in : :[facility] ReadingLocation: Weight: 199 lb : : Gender: Female BSA: 2.0 m2 : :: 1950 Age: 72 yrs BP: 149/61 mmHg: :Reason For Study: Atrial Fibrillation : :Ordering Physician: DARLEEN, : :DESI Performed By: Tracee Carson : :Referring: DESI MOREJON : + + Interpretation Summary The study quality was technically difficult. The ejection fraction is estimated to be 55-60%. There is mild aortic stenosis. The peak aortic velocity is 2.27 m/sec. There is trace mitral regurgitation. Procedure: A two-dimensional transthoracic echocardiogram with color flow and Doppler was performed. The study quality was technically difficult. Comparison is made with the echocardiogram of 12/22/2022. The patient was in a bradycardic rhythm during the exam. Left Ventricle: The left ventricle is normal in size. The ejection fraction is estimated to be 55-60%. There are no obvious focal wall motion abnormalities noted but poor endocardial definition reduces the sensitivity for the detection of such. Diastolic parameters suggest a pseudonormalization pattern, consistent with probable elevated filling pressures. Right Ventricle: The right ventricle is normal size. The right ventricular systolic function is normal. Atria: The left atrium is moderately dilated. Right atrial size is normal. There is no Doppler evidence for an interatrial shunt. Mitral Valve: The mitral valve leaflets are moderately calcified. There is moderate mitral annular calcification. The mitral valve mean gradient is 3 mmHg. There is trace mitral regurgitation. Aortic Valve: The aortic valve is trileaflet. The aortic valve is slightly calcified. There is mild aortic stenosis. The peak aortic velocity is 2.27 m/sec. The aortic valve mean gradient is 10 mmHg. There is trace aortic regurgitation. Tricuspid Valve: The tricuspid valve is normal. There is no tricuspid stenosis. There is trace tricuspid regurgitation. The right ventricular systolic pressure is estimated to be at least 25 mmHg based on an estimated right atrial pressure of 3 mm Hg. Pulmonic Valve: The pulmonic valve is not well visualized. There is no pulmonic valvular stenosis. There is no pulmonic valvular regurgitation. Great Vessels: The aortic root is normal size. The ascending aorta is normal in size. The pulmonary artery is normal size. The IVC is of normal diameter and collapses greater than 50% with a sniff. This suggests a low right atrial pressure of 3 mm Hg. Pericardium/ Pleura There is no pericardial effusion. There is no pleural effusion. MMode/2D Measurements & Calculations LVIDd: 5.3 cm LVOT diam: 1.9 cm LVIDs: 3.3 cm Ao root diam: 2.5 cm FS: 37.7 % asc Aorta Diam: 2.9 cm IVSd: 1.1 cm LVPWd: 1.0 cm LV lord. diameter/BSA (cm/m^2): 2.7 LV sys. diameter/BSA (cm/m^2): 1.7 LA A2 area: 23.4 cm2 RA long axis: 5.7 cm LA A4 area: 23.5 cm2 RA area: 17.1 cm2 LA length (vol): 6.4 cm RA vol: 43.5 ml LA vol: 72.9 ml RA : 22.1 ml/m2 LA vol index: 36.9 ml/m2 RVD1 (basal): 3.5 cm LVLs ap4: 5.8 cm LVLd ap2: 7.1 cm TAPSE_phl: 2.4 cm LVLs ap2: 6.0 cm Doppler Measurements & Calculations Ao V2 max: 220.0 cm/sec LVOT Max Dave: 104.0 cm/sec Ao V2 mean: 147.0 cm/sec LV V1 max P.3 mmHg Ao max P.0 mmHg LV V1 VTI: 27.7 cm Ao mean P.5 mmHg SHANTANU(I,D): 1.3 cm2 Ao V2 VTI: 60.0 cm SHANTANU(V,D): 1.3 cm2 sev ratio: 0.46 SHANTANU indexed to BSA (cm^2/m^2): 0.66 MV E max dave: 166.0 cm/sec TR max dave: 235.0 cm/sec MV A max dave: 87.3 cm/sec TR max P.1 mmHg MV E/A: 1.9 PA V2 max: 102.0 cm/sec Med Peak E' Dave: 4.6 cm/sec PA V2 mean: 72.0 cm/sec E/E' med: 35.8 PA mean P.0 mmHg Lat Peak E' Dave: 9.3 cm/sec PA pr(Accel): 23.2 mmHg E/E' lat: 17.9 E/e' average: 26.8 MV dec time: 0.50 sec MVA(VTI): 1.3 cm2 MV V2 mean: 78.2 cm/sec SV(LVOT): 78.5 ml MV mean P.0 mmHg MV V2 VTI: 60.5 cm AV VR_phl: 0.47 MV P1/2t-pr_phl: 146.0 msec SHANTANU(VTI)/BSA_phl: 0.66 Reading Physician:02:12 PM
== END ==
PROVIDERS: PCP Family Medicine; Referring Provider Nurse Practitioner Acute Care; Visit Provider Nurse Practitioner Acute Care
DX: I48.91 Unspecified atrial fibrillation (principal); I34.81 Nonrheumatic mitral (valve) annulus calcification; I35.0 Nonrheumatic aortic (valve) stenosis
CPT/HCPCS: 93306

== ENCOUNTER → 2023-02-08 08:32 | Outpatient (CLI) | payer MEDICARE, OTHER, SELFPAY ==
[2023-01-26 14:49] VITALS: BMI 34.0
[2023-02-08 10:08] LABS: Add Manual Diff / Slide Review NO; Basophils Absolute Auto 100 /uL (0-100); Basophils Percent Auto 1.8 % (0-2); Eosinophils Absolute Auto 100 /uL (0-450); Eosinophils Percent Auto 2.6 % (2-4); Hematocrit 29.2 % (36-46); Hemoglobin 9.5 g/dL (12.0-16.0); Lymphocytes Absolute Auto 700 /uL (1100-4500); Lymphocytes Percent Auto 14.1 % (25-40); Mean Corpuscular HGB Conc 32.5 % (30-36); Mean Corpuscular Hemoglobin 26.3 PG (26-34); Mean Corpuscular Volume 80.8 fL (80-100); Monocytes Absolute Auto 400 /uL (0-900); Monocytes Percent Auto 6.9 % (3-14); Neutrophils Absolute Auto 4000 /uL (1500-7000); Neutrophils Percent Auto 74.6 % (50-75); Platelet Count 342 X10^3/uL (150-400); Red Blood Cell Count 3.61 X10^6/uL (4.0-5.2); Red Cell Distribution Width 19.7 % (11.6-14.8); White Blood Cell Count 5.3 X10^3/uL (4.5-11.0)
[2023-02-08 10:15] LABS: BUN Creatinine Ratio 13.4 (6-22); Blood Urea Nitrogen 20 mg/dL (7-17); Calcium 9.1 mg/dL (8.4-10.2); Carbon Dioxide 26 mmol/L (22-32); Chloride 106 mmol/L (98-107); Estimated Glomerular Filt Rate 37 mL/min (>60); Glucose 88 mg/dL (80-110); HEMOLYSIS < 15 (0-50); Potassium 4.6 mmol/L (3.4-5.1); Sodium 137 mmol/L (137-145)
== END ==
PROVIDERS: PCP Family Medicine; Referring Provider Nurse Practitioner Acute Care; Visit Provider Nurse Practitioner Acute Care
DX: D64.9 Anemia, unspecified (principal)
CPT/HCPCS: 36415; 80048; 85025

== ENCOUNTER 2023-08-28 15:10 | Inpatient (IN) | payer MEDICARE, OTHER, SELFPAY ==
[2023-01-26 14:49] VITALS: BMI 34.0
[2023-08-28] VITALS (16 sets, daily range): BP systolic 105–148; BP diastolic 46–72; PULSE 59–73; RESP 15–25; TEMP 36.4–37.1; O2SAT 86–96; BMI 34.6
--- NOTE | 2023-08-28 15:27 | ED.GENADULT ---
HPI - General Adult General Chief complaint: Shortness of Breath/Dyspnea Stated complaint: flu like symptoms Time Seen by Provider: 08/28/23 15:27 History of Present Illness HPI narrative: 72yo F w/h/o COPD, restless legs syndrome, GERD, atrial fibrillation, CHF, hypertension, GI bleed on metoprolol, spironolactone, amiodarone who presents with shortness of breath. She states for the last several days, she has had worsening cough and shortness of breath with wheezing that seems to respond to inhalers. She is on apixaban as well. She denies chest pain at any time. No back or abdominal or flank pain. No headache. No lightheadedness or syncope. No asymmetric leg swelling or leg pain. She has had subjective fevers as well. No urinary symptoms. No nausea or vomiting or diarrhea. Spouse is here with her. No recent oral antibiotics or steroids. Per chart review, she has history of anemia, with reportedly well controlled atrial fibrillation, with prior GI bleed. She has history of Renetta-en-Y. She has history of lower esophageal stricture. Related Data Home Medications Medication Instructions Recorded Confirmed albuterol sulfate 90 mcg/actuation 2 puff inhalation Q4H PRN 01/26/23 08/28/23 aerosol inhaler Shortness Of Breath Or Wheezing escitalopram oxalate 5 mg tablet 5 mg PO DAILY 01/26/23 08/28/23 fluticasone 100 mcg-salmeterol 50 1 ea inhalation BID 01/26/23 08/28/23 mcg/dose blistr powdr for inhalation (Advair Diskus) metoprolol succinate 50 mg 150 mg PO BID 01/26/23 08/28/23 tablet,extended release 24 hr spironolactone 25 mg tablet 25 mg PO DAILY 01/26/23 08/28/23 apixaban 5 mg tablet 5 mg PO BID 08/28/23 08/28/23 nifedipine 60 mg tablet,extended 60 mg PO QPM 08/28/23 08/28/23 release 24 hr Previous Rx's Medication Instructions Recorded amiodarone 200 mg tablet 200 mg PO DAILY #90 tabs 04/29/23 Disabled Parking Permint #1 ea 08/03/23 pantoprazole 40 mg tablet,delayed 40 mg PO BID 30 days #60 tabs 08/09/23 release pramipexole 0.125 mg tablet 0.125 mg PO ONCE PM #30 tabs 08/09/23 Allergies Allergy/AdvReac Type Severity Reaction Status Date / Time Penicillins Allergy Intermediate Hives Verified 04/22/23 11:36 Sulfa (Sulfonamide Allergy Mild thrush Verified 04/22/23 11:36 Antibiotics) Review of Systems Review of Systems Narrative: Constitutional: + fever, no chills Eyes: no visual disturbance, no discharge Ears, Nose, Mouth, Throat: no rhinorrhea, no sore throat Cardiovascular: no chest pain, no palpitations Respiratory: + cough, shortness of breath Gastrointestinal: no abdominal pain, no vomiting, no diarrhea Genitourinary: no dysuria, no hematuria Musculoskeletal: no back pain, no neck stiffness Skin: no rash, no wound Neurological: no focal weakness, no focal numbness Patient History Medical History (Updated 06/09/23 @ 20:39 by Wandy Patel) Asthma (~1999) Allergies Restless leg syndrome (~2004) Fractures Mumps Measles Chicken pox History of recurrent ear infection Hearing loss (~1999) History of urinary incontinence (~2007) GERD (gastroesophageal reflux disease) Anemia Atrial fibrillation with RVR (~2019) Chronic kidney disease Congestive heart failure Leg cramps Hypertension GI bleed (~2022) Osteoporosis (~2002) Systolic heart failure Chronic atrial fibrillation Surgical History (Updated 06/09/23 @ 20:39 by Wandy Patel) Anesthesia History of bilateral knee replacement History of bilateral hip replacements No pertinent past surgical history Family History (Updated 06/09/23 @ 20:41 by Wandy Patel) Father History of heart disease History of kidney disease Mother Cancer Social History household members: spouse Smoking Status: Never smoker alcohol intake: never Smoking Status: Never smoker alcohol intake frequency: holidays/special occasions only Substance Use Type: does not use Exam Narrative Exam Narrative: Const: Appears mildly dyspneic, able to speak in short sentences, otherwise non toxic appearing; remains calm, pleasant; she was satting roughly 86% on room air but is now mid 90s on 2 L nasal cannula Eyes: PERRLA, EOMI ENT: mucous membranes moist Neck: supple, non-tender Resp: moderate aeration bilaterally with pronounced expiratory wheezing without focality Card: regular rate and rhythm, no murmurs Abd: non tender diffusely, no rigidity or rebound or guarding Back: no T or L spine tenderness, no CVA tenderness bilaterally Extrem: no deformities, no swelling bilateral lower extremities, 2+ distal pulses all extremities Neuro: ANOx4, legal administrative assistant grossly intact, grossly intact sensation and strength all extremities Skin: no rash, warm and dry Initial Vital Signs Initial Vital Signs: Vital Signs Temperature 98.2 F 08/28/23 15:16 Pulse Rate 73 08/28/23 15:16 Respiratory Rate 24 08/28/23 15:16 Blood Pressure 148/64 H 08/28/23 15:16 Pulse Oximetry 86 L 08/28/23 15:16 Oxygen Delivery Method Room Air 08/28/23 15:16 Course Course Course Narrative: This patient presents with a history and exam highly consistent with COPD exacerbation, with potential for preceding viral syndrome or pneumonia. I have considered a broad differential including but not limited to pneumothorax, CHF exacerbation, ACS, pulmonary embolism, symptomatic anemia, metabolic acidosis, among others. However, history and exam as above are far more suggestive of COPD exacerbation. In this setting, while obtaining CBC, CMP, EKG, troponin, viral swab, chest x-ray, blood cultures, I am giving methylprednisone 125 mg IV, DuoNebs and albuterol, doxycycline and will closely reassessed. Note patient does not typically require oxygen but is on 2 L nasal cannula currently for SpO2 to mid 80s on arrival. EKG NSR without acute ischemia or immediately concerning interval prolongation on my review. CBC with prominent neutrophilic leukocytosis, with thrombocytosis, no anemia. Troponin negative. Viral swab negative. Chemistry with hyponatremia that appears mildly worsened from prior though overall chronic, with creatinine worsened from prior, BUN similar to prior, no LFT elevation. Radiology review of CXR below, which I agree with on my independent review: FINDINGS: Surgical changes and devices: None. Lungs and pleura: Patchy bilateral pulmonary infiltrates greater on the right. Pleural spaces are clear. Mediastinum: Mediastinal contours are normal. Heart size is normal. Bones and chest wall: No suspicious bony abnormalities. Soft tissues appear unremarkable. IMPRESSION: Multifocal pulmonary infiltrates consistent with pneumonia Approved by: Jaylon Roa M.D. on 08/28/2023 at 15:30 Adding levofloxacin 750mg IV. While patient is demonstrating evidence of improvement, she is still on oxygen and requires admission. I suspect she has potential bacterial pneumonia along with COPD exacerbation. Calling hospitalist to discuss admission. Adding VBG. I spoke with Dr. Hector on phone who reviewed case with me on phone. We will place her inpatient. Patient updated and agrees with plan. Wheezing on repeat exam has improved but she is satting 90% on 2L NC. She is not in respiratory distress and appears stable. Orders Ordered: ED Orders 08/28/23 15:30 CBC Auto Diff [Complete Blood Count AUTO DIFF] Stat CMP [Comprehensive Metabolic Panel] Stat Covid-19 + FLU A/B + RSV - PCR Stat Troponin I Stat 08/28/23 15:31 XR chest 2V Stat 08/28/23 15:46 EKG-12 Lead Stat 08/28/23 15:55 Blood Culture Stat 08/28/23 17:41 VBG [Venous Blood Gas] Stat Levofloxacin (Levaquin) 750 mg in 150 mls @ 100 mls/hr IV NOW ONE Stop: 08/28/23 19:10 Discontinued Medications Albuterol (Albuterol 2.5 Mg/3 Ml Neb (Adult)) 2.5 mg INH NOW ONE Stop: 08/28/23 15:31 Last Admin: 08/28/23 15:37 Dose: 2.5 mg Documented By: NL Albuterol/Ipratropium (Albuterol/Ipratropium 3 Ml Ampul) 3 ml INH NOW ONE Stop: 08/28/23 15:31 Last Admin: 08/28/23 15:34 Dose: 3 ml Documented By: NL Doxycycline Hyclate (Doxycycline Hyclate 100 Mg Tablet) 100 mg PO NOW ONE Stop: 08/28/23 15:45 Last Admin: 08/28/23 16:06 Dose: 100 mg Documented By: RB Methylprednisolone (Methylprednisolone 125 Mg/2 Ml Vial) 125 mg IV NOW ONE Stop: 08/28/23 15:45 Last Admin: 08/28/23 16:05 Dose: 125 mg Documented By: RB Vital Signs Vital signs: Vital Signs - 8 hr 08/28/23 15:16 08/28/23 15:27 08/28/23 15:30 Temperature 98.2 F Pulse Rate 73 73 Respiratory Rate 24 20 Blood Pressure 148/64 H 125/58 L Pulse Oximetry 86 L 90 L Oxygen Delivery Method Room Air Nasal Cannula Oxygen Flow Rate 2 08/28/23 15:30 08/28/23 16:00 08/28/23 16:04 Temperature Pulse Rate 71 65 Respiratory Rate 15 25 H Blood Pressure 116/56 L Pulse Oximetry 93 91 Oxygen Delivery Method Nasal Cannula Nasal Cannula Oxygen Flow Rate 2 2 08/28/23 16:04 Temperature Pulse Rate 67 Respiratory Rate 19 Blood Pressure Pulse Oximetry 95 Oxygen Delivery Method Nasal Cannula Oxygen Flow Rate 2 Medical Decision Making Lab Data 08/28/23 15:30 08/28/23 15:30 Labs: Lab Results 08/28/23 Range/Units 15:30 WBC 17.0 H (4.5-11.0) X10^3/uL RBC 4.67 (4.0-5.2) X10^6/uL Hgb 12.6 (12.0-16.0) g/dL Hct 38.5 (36-46) % MCV 82.4 (80-100) fL MCH 27.1 (26-34) PG MCHC 32.9 (30-36) % RDW 15.4 H (11.6-14.8) % Plt Count 441 H (150-400) X10^3/uL Neut % (Auto) 84.1 H (50-75) % Lymph % (Auto) 6.0 L (25-40) % [place] % (Auto) 6.1 (3-14) % Eos % (Auto) 3.2 (2-4) % Baso % (Auto) 0.6 (0-2) % Neut # (Auto) 42291 H (1830-6140) /uL Lymph # (Auto) 1000 L (6005-2231) /uL [place] # (Auto) 1000 H (0-900) /uL Eos # (Auto) 500 H (0-450) /uL Baso # (Auto) 100 (0-100) /uL Sodium 132 L (137-145) mmol/L Potassium 4.5 (3.4-5.1) mmol/L Chloride 99 (98-107) mmol/L Carbon Dioxide 29 (22-32) mmol/L BUN 28 H (7-17) mg/dL Creatinine 1.92 H (0.52-1.04) mg/dL Estimated GFR 27 L (>60) mL/min BUN/Creatinine Ratio 14.6 (6-22) Glucose 103 (80-110) mg/dL Calcium 9.4 (8.4-10.2) mg/dL Total Bilirubin 0.8 (0.2-1.3) mg/dL AST 23 (14-36) IU/L ALT 17 (<35) IU/L Alkaline Phosphatase 109 (38-126) U/L Troponin I < 0.012 (0.01-0.034) ng/mL Total Protein 7.9 (6.3-8.2) g/dL Albumin 3.6 (3.5-5.0) g/dL Globulin 4.3 H (1.7-4.1) g/dL Albumin/Globulin Ratio 0.8 L (1.0-2.8) SARS-CoV-2 (PCR) Negative (Negative) Influenza A (RT-PCR) Flu a negative (NEGATIVE) Influenza B (RT-PCR) Flu b negative (NEGATIVE) RSV (PCR) Negative (Negative) Discharge Plan Departure Prescriptions: No Action amiodarone 200 mg tablet 200 mg PO DAILY Qty: 90 3RF (DME) Disabled Parking Permint See Rx Instructions .ROUTE .MEDSUPPLY Qty: 1 0RF Rx Instructions: I find this patient to be medically disabled and qualified for Disabled Parking as indicated and signed on the Accompanying Disabled Parking Application for individuals. pramipexole 0.125 mg tablet 0.125 mg PO ONCE PM Qty: 30 1RF pantoprazole 40 mg tablet,delayed release (DR/EC) 40 mg PO BID 30 Days Qty: 60 2RF metoprolol succinate 50 mg tablet extended release 24 hr 150 mg PO BID spironolactone 25 mg tablet 25 mg PO DAILY fluticasone propion-salmeterol [Advair Diskus] 100-50 mcg/dose blister with device 1 ea inhalation BID albuterol sulfate 90 mcg/actuation HFA aerosol inhaler 2 puff INHALATION Q4H PRN (Reason: Shortness Of Breath Or Wheezing) escitalopram oxalate 5 mg tablet 5 mg PO DAILY apixaban 5 mg Tablet 5 mg PO BID nifedipine 60 mg tablet extended release 24hr 60 mg PO QPM Referrals: Stu Carrion, [Primary Care Provider] -
--- NOTE | 2023-08-28 15:31 | DI.RAD.S_ITS ---
PROCEDURE: XR CHEST 2V INDICATIONS: shortness of breath TECHNIQUE: 2 views of the chest were acquired. COMPARISON: [facility], CR, XR CHEST 2V, 12/21/2022, 18:05. FINDINGS: Surgical changes and devices: None. Lungs and pleura: Patchy bilateral pulmonary infiltrates greater on the right. Pleural spaces are clear. Mediastinum: Mediastinal contours are normal. Heart size is normal. Bones and chest wall: No suspicious bony abnormalities. Soft tissues appear unremarkable. IMPRESSION: Multifocal pulmonary infiltrates consistent with pneumonia Approved by: Jaylon Rao M.D. on 08/28/2023 at 15:30
[2023-08-28] MEDS: ALBUTEROL/IPRATROPIUM 3 ML AMPUL INH ×2 (15:34→21:20)
[2023-08-28] MEDS: ALBUTEROL 2.5 MG/3 ML NEB (ADULT) INH (15:37)
[2023-08-28 15:43] LABS: Add Manual Diff / Slide Review NO; Basophils Absolute Auto 100 /uL (0-100); Basophils Percent Auto 0.6 % (0-2); Eosinophils Absolute Auto 500 /uL (0-450); Eosinophils Percent Auto 3.2 % (2-4); Hematocrit 38.5 % (36-46); Hemoglobin 12.6 g/dL (12.0-16.0); Lymphocytes Absolute Auto 1000 /uL (1100-4500); Mean Corpuscular HGB Conc 32.9 % (30-36); Mean Corpuscular Hemoglobin 27.1 PG (26-34); Mean Corpuscular Volume 82.4 fL (80-100); Monocytes Absolute Auto 1000 /uL (0-900); Monocytes Percent Auto 6.1 % (3-14); Neutrophils Absolute Auto 14300 /uL (1500-7000); Neutrophils Percent Auto 84.1 % (50-75); Platelet Count 441 X10^3/uL (150-400); Red Blood Cell Count 4.67 X10^6/uL (4.0-5.2); Red Cell Distribution Width 15.4 % (11.6-14.8)
[2023-08-28 15:55] LABS: Alanine Aminotransferase 17 IU/L (<35); Albumin 3.6 g/dL (3.5-5.0); Albumin Globulin Ratio 0.8 (1.0-2.8); Alkaline Phosphatase 109 U/L (38-126); Aspartate Aminotransferase 23 IU/L (14-36); BUN Creatinine Ratio 14.6 (6-22); Bilirubin Total 0.8 mg/dL (0.2-1.3); Blood Urea Nitrogen 28 mg/dL (7-17); Calcium 9.4 mg/dL (8.4-10.2); Carbon Dioxide 29 mmol/L (22-32); Chloride 99 mmol/L (98-107); Estimated Glomerular Filt Rate 27 mL/min (>60); Globulin 4.3 g/dL (1.7-4.1); Glucose 103 mg/dL (80-110); HEMOLYSIS < 15 (0-50); Potassium 4.5 mmol/L (3.4-5.1); Sodium 132 mmol/L (137-145); Total Protein 7.9 g/dL (6.3-8.2)
[2023-08-28] MEDS: methylPREDNISolone 125 MG/2 ML VIAL IV (16:05)
[2023-08-28] MEDS: DOXYCYCLINE HYCLATE 100 MG TABLET PO (16:06)
[2023-08-28 16:07] LABS: Troponin I < 0.012 ng/mL (0.01-0.034)
--- NOTE | 2023-08-28 16:09 | PC.NURSE ---
Patient left department with x-ray tech.
[2023-08-28 16:22] LABS: Influenza A - CEPHEID Flu A NEGATIVE (NEGATIVE); Influenza B - CEPHEID Flu B NEGATIVE (NEGATIVE); Respiratory Syncytial Virus Negative (Negative)
[2023-08-28 16:33] LABS: COVID-19 CEPHEID 4-PLEX PCR Negative (Negative)
--- NOTE | 2023-08-28 17:46 | RT ---
pt yolanda neb txs well, no distress noted and on 2.5 lpm nc. Nebs given via air.
[2023-08-28] MEDS: levoFLOXacin 750 MG/150 ML PIGGYBACK 100 MG IV (18:08)
--- NOTE | 2023-08-28 18:18 | P.HP_ITS ---
History of Present Illness History of Present Illness Date Patient Seen: 08/28/23 Time Patient Seen: 17:40 Chief complaint: flu like symptoms Narrative: Ms. Nelson is a 72F with PMH afib, hypertension, chronic afib with acute heart failure with EF 30-35% s/p cardioversion, recent GI bleed in setting of NSAID use with esophageal stricture who presented with cough, weakness, shortness of breath for the past week. Cough has been nonproductive, with subjective chills. She does occasionally have food get stuck, unchanged recently due to her stricture. Denies rhinorrhea, sinus congestion. She has stable 2-3 pillow orthopnea. Does not use O2 at home. In the emergency room, patient was mildly hypoxic to mid 80s on room air. Remainder of her vitals were unremarkable. Laboratory evaluation showed a leukocytosis with WBC of 17, elevated creatinine from her baseline at 1.92, negative COVID, flu, and RSV panel. Chest x-ray shows possible multifocal pneumonia. [facility] Medical History Asthma (~1999) Allergies Restless leg syndrome (~2004) Fractures Mumps Measles Chicken pox History of recurrent ear infection Hearing loss (~1999) History of urinary incontinence (~2007) GERD (gastroesophageal reflux disease) Anemia Atrial fibrillation with RVR (~2019) Chronic kidney disease Congestive heart failure Leg cramps Hypertension GI bleed (~2022) Osteoporosis (~2002) Systolic heart failure Chronic atrial fibrillation Surgical History Anesthesia History of bilateral knee replacement History of bilateral hip replacements No pertinent past surgical history Family History Father History of heart disease History of kidney disease Mother Cancer Social History household members: spouse Smoking Status: Never smoker alcohol intake: never Meds Home Medications and Allergies Home Medications Medication Instructions Recorded Confirmed Type albuterol sulfate 90 mcg/actuation 2 puff inhalation Q4H PRN 01/26/23 08/28/23 History aerosol inhaler Shortness Of Breath Or Wheezing escitalopram oxalate 5 mg tablet 5 mg PO DAILY 01/26/23 08/28/23 History fluticasone 100 mcg-salmeterol 50 1 ea inhalation BID 01/26/23 08/28/23 History mcg/dose blistr powdr for inhalation (Advair Diskus) metoprolol succinate 50 mg 150 mg PO BID 01/26/23 08/28/23 History tablet,extended release 24 hr spironolactone 25 mg tablet 25 mg PO DAILY 01/26/23 08/28/23 History amiodarone 200 mg tablet 200 mg PO DAILY #90 tabs 04/29/23 08/28/23 Rx Disabled Parking Permint #1 ea 08/03/23 Rx pantoprazole 40 mg tablet,delayed 40 mg PO BID 30 days #60 tabs 08/09/23 08/28/23 Rx release pramipexole 0.125 mg tablet 0.125 mg PO ONCE PM #30 tabs 08/09/23 08/28/23 Rx apixaban 5 mg tablet 5 mg PO BID 08/28/23 08/28/23 History nifedipine 60 mg tablet,extended 60 mg PO QPM 08/28/23 08/28/23 History release 24 hr Allergies Allergy/AdvReac Type Severity Reaction Status Date / Time Penicillins Allergy Intermediate Hives Verified 04/22/23 11:36 Sulfa (Sulfonamide Allergy Mild thrush Verified 04/22/23 11:36 Antibiotics) Review of Systems Review of Systems Narrative: All other systems reviewed with the patient and are negative unless otherwise stated. Exam Vital Signs (past 8 hours): - 08/28/23 15:16 08/28/23 15:27 08/28/23 15:30 Temperature 98.2 F Pulse Rate 73 73 Respiratory Rate 24 20 Blood Pressure 148/64 H 125/58 L Pulse Oximetry 86 L 90 L Oxygen Delivery Method Room Air Nasal Cannula Oxygen Flow Rate 2 08/28/23 15:30 08/28/23 15:35 08/28/23 16:00 Temperature Pulse Rate 71 64 65 Respiratory Rate 15 20 25 H Blood Pressure Pulse Oximetry 93 92 91 Oxygen Delivery Method Nasal Cannula Nasal Cannula Nasal Cannula Oxygen Flow Rate 2 2.5 2 08/28/23 16:04 08/28/23 16:04 08/28/23 16:30 Temperature Pulse Rate 67 67 Respiratory Rate 19 18 Blood Pressure 116/56 L Pulse Oximetry 95 Oxygen Delivery Method Nasal Cannula Oxygen Flow Rate 2 08/28/23 17:00 08/28/23 17:30 08/28/23 17:56 Temperature Pulse Rate 69 64 Respiratory Rate 20 19 Blood Pressure 117/72 Pulse Oximetry Oxygen Delivery Method Oxygen Flow Rate 08/28/23 17:56 Temperature Pulse Rate 68 Respiratory Rate 24 Blood Pressure Pulse Oximetry 92 Oxygen Delivery Method Oxygen Flow Rate Oxygen Delivery Method Nasal Cannula Oxygen Flow Rate 2 Narrative Exam Narrative: GEN: no acute distress CV: RRR no m/r/g PULM: diminished breath sounds bilaterally lung bases, no wheezing ABD: soft, nontender, nondistended, no organomegaly EXT: warm and well perfused 1+ pitting edema NEURO: awake, alert, oriented, no focal deficits Objective Labs 08/28/23 15:30 08/28/23 15:30 Labs: Laboratory Results - last 24 hr 08/28/23 15:30 WBC 17.0 H RBC 4.67 Hgb 12.6 Hct 38.5 MCV 82.4 MCH 27.1 MCHC 32.9 RDW 15.4 H Plt Count 441 H Neut % (Auto) 84.1 H Lymph % (Auto) 6.0 L [place] % (Auto) 6.1 Eos % (Auto) 3.2 Baso % (Auto) 0.6 Neut # (Auto) 86168 H Lymph # (Auto) 1000 L [place] # (Auto) 1000 H Eos # (Auto) 500 H Baso # (Auto) 100 Sodium 132 L Potassium 4.5 Chloride 99 Carbon Dioxide 29 BUN 28 H Creatinine 1.92 H Estimated GFR 27 L BUN/Creatinine Ratio 14.6 Glucose 103 Calcium 9.4 Total Bilirubin 0.8 AST 23 ALT 17 Alkaline Phosphatase 109 Troponin I < 0.012 Total Protein 7.9 Albumin 3.6 Globulin 4.3 H Albumin/Globulin Ratio 0.8 L SARS-CoV-2 (PCR) Negative Influenza A (RT-PCR) Flu a negative Influenza B (RT-PCR) Flu b negative RSV (PCR) Negative Assessment & Plan Assessment & Plan narrative: 1. Sepsis with acute respiratory failure with hypoxia and KARIN, secondary to bilateral bacterial pneumonia, present on admission - SOFA score of 2. - Levofloxacin given in the emergency room, change to ceftriaxone and azithromycin tomorrow for CAP coverage. Patient reports she cannot recall penicillin allergy, may have had skin redness possibly. Discussed with patient and she was agreeable to ceftriaxone. Will start tomorrow. - follow up cultures drawn - wean from O2 as able, goal O2 89-96% while on supplemental therapy. - RT eval and treat, start steroids for possible COPD exacerbation given ER provider concern for wheezing, differential includes volume overload from known heart failure as well. ProBNP ordered to add on. Initial troponin negative. - additional consideration may be amiodarone lung toxicity but felt to be much less likely. Consider CT imaging if no improvement given lung involvement on CXR. - no reported vomiting, doubt history of stricture contributing to presentation but also a possibility of aspiration. Consider BURLAP MAN vs esophogram depending on hospital course. 2. Chronic atrial fibrillation - continue home amiodarone and beta kenrick - monitor with tele as does have history of difficult to control RVR requiring cardioversion. 3. KARIN on CKD stage III - suspect in setting of sepsis. Will avoid continuous fluids at this time due to concern above for volume overload 4. CHFrEF - previous EF 30-35% in setting of afib with RVR. - possible acute component as well but more likely pneumonia. 4. HTN - continue home medications 5. Depression, chronic - continue escitalopram 6. COPD with exacerbation - see above. Code: Full, surrogate Cornelius Nelson, Additional history obtained via discussion with ER provider. I have reviewed patient's EKG, documentation, and laboratory evaluation. I have utilized all available immediate resources to obtain, update, or review the patient's current medications. Dispo: Admitted inpatient, her stay is expected to exceed two midnights.
[2023-08-28 19:10] LABS: NT-proBNP (BNP-Adult 18+) 4040 pg/mL (<125)
[2023-08-28 19:43] LABS: PCO2 VBG 43.5 mmHg (45-50); PO2 VBG 45 mmHg (35-45); pH VBG 7.38 (7.33-7.43)
[2023-08-28 19:44] LABS: Fractionated Inspired Oxygen 21; HCO3 VBG 26 mmol/L (24-28); Oxygen Saturation VBG 80 % (70-75); Total CO2 VBG 27 mmol/L (24-29)
[2023-08-28] MEDS: BUDESONIDE 0.5 MG/2 ML NEB INH (21:18)
[2023-08-28] MEDS: PANTOPRAZOLE DR 40 MG TABLET PO (22:07)
[2023-08-28] MEDS: APIXABAN 5 MG TABLET PO (22:08)
[2023-08-28] MEDS: METOPROLOL ER 50 MG TABLET PO (22:41)
[2023-08-28] MEDS: BENZOCAINE/MENTHOL 1 LOZ PKT 1 EACH PO (22:45)
[2023-08-29] VITALS (12 sets, daily range): BP systolic 105–138; BP diastolic 45–70; PULSE 61–74; RESP 16–21; TEMP 35.5–36.4; O2SAT 89–96
--- NOTE | 2023-08-29 01:43 | PC.NURSE ---
shift supervisor rn: Patient is AxOx4, VSS, O2 saturation 96% on 2L NC. Denies chest pain, difficulty breathing, N/V. Mild SOB noted on exertion. Ambulates w/ 1 [place] to [facility] requested to use purewick at night d/t urinary incontinence. Lung sounds are clear/diminished upon auscultation, received breathing treatment before bed. Denies pain. On tele showing normal sinus rhythm. Oriented to room & call-light. Plan of care ongoing.
[2023-08-29] MEDS: PRAMIPEXOLE 0.25 MG TABLET 0.125 MG PO ×2 (05:21→16:45)
[2023-08-29] MEDS: BUDESONIDE 0.5 MG/2 ML NEB INH ×2 (08:46→19:23)
[2023-08-29] MEDS: ALBUTEROL/IPRATROPIUM 3 ML AMPUL INH ×3 (08:46→19:23)
[2023-08-29] MEDS: APIXABAN 5 MG TABLET PO ×2 (09:38→21:11)
[2023-08-29] MEDS: AMIODARONE 200 MG TABLET PO (09:38)
[2023-08-29] MEDS: ESCITALOPRAM 10 MG TABLET 5 MG PO (09:39)
[2023-08-29] MEDS: PANTOPRAZOLE DR 40 MG TABLET PO ×2 (09:43→21:11)
[2023-08-29] MEDS: predniSONE 20 MG TABLET 40 MG PO (09:44)
[2023-08-29] MEDS: SPIRONOLACTONE 25 MG TABLET PO (09:44)
[2023-08-29] MEDS: METOPROLOL ER 50 MG TABLET PO ×2 (09:47→21:11)
--- NOTE | 2023-08-29 12:09 | CM.DANOTE ---
Initial DCP Assessment Visit Note Reviewed EMR and team rounds for pt's medical status and initial anticipated home d/c needs. Met at bedside with pt and spouse to introduce self and role, pt found to be upright in bed getting ready for lunch, was observed to have some dyspnea with speaking, but otherwise appearing comfortable. Pt resides independently with spouse in their own home in [place]. Spouse will plan to transport pt once she's medically cleared for d/c, likely 2-more days inpt, per Hospitalist. Payor: Medicare PCP: Dr. Stu Carrion Pt is a 72 year-old F with a PMH of COPD, Afib, CHF, hypertension, and GI bleed presented to the ED last evening with c/o several days of worsening shortness of breath, cough, and wheezing. She does not use home O2 at baseline. ED chest x-ray showed bilateral pneumonia, presumable community acquired. She was started on IV ABO's/fluids,and 2LO2. ED diagnoses were sepsis w/acute respiratory failure w/apoxia and KARIN. She's alert and oriented at baseline, able to express her needs and preferences. DCP will continue to monitor and assist with any evolving recommendations for final d/c. Discharge Planning/Care Management CM Discharge Assessment Start: 08/29/23 12:01 Freq: Status: Active Protocol: Document 08/29/23 12:01 DPL (Rec: 08/29/23 12:08 DPL [id number]) Discharge Planning Assessment Assigned Decorating Instructor MARY Ramirez Advance Directives? No History Provided By Patient,Medical Record Has Patient been admitted in last 30 No days? Prior Living Arrangements House Household Members spouse Type of transporation used prior to Relies on Others admit Independent with ADL's Yes Is patient alert and oriented? Yes Comment N/A Comment N/A DME Already Rented / Owned Cane Comment Pending efficacy of IV ABO's and PT/OT eval/recommendations for d/c. Barriers to Discharge No Comment DC home expected when medically stable Discharge Plan Home Transportation Arrangement Spouse Referrals Initiated None needed If patient plan is home with home health No : Has signed face to face form been completed? Medicare Choice List Provided No Whiteboard Updated in Patient Room with Yes name and ext. # of Decorating Instructor Review Status In Process Please Provide Date Initial DC 08/29/23 Assessment Was Performed
--- NOTE | 2023-08-29 13:17 | P.PN_ITS ---
Subjective Subjective Interval history: Feels improved today, improved dyspnea. Able to wean off O2 but remains dyspnic with minimal exertion. Exam Vital Signs (past 8 hours): - 08/29/23 08:00 08/29/23 08:00 08/29/23 08:00 Temperature 95.9 F L Pulse Rate 61 Respiratory Rate 20 Blood Pressure 138/60 Pulse Oximetry 95 95 Oxygen Delivery Method Nasal Cannula Nasal Cannula Oxygen Flow Rate 2 08/29/23 08:48 08/29/23 09:47 08/29/23 12:00 Temperature 96.8 F L Pulse Rate 67 67 Respiratory Rate 21 Blood Pressure 136/58 L 110/45 L Pulse Oximetry 95 89 L Oxygen Delivery Method Nasal Cannula Oxygen Flow Rate 2 0 08/29/23 13:15 Temperature Pulse Rate Respiratory Rate Blood Pressure Pulse Oximetry 92 Oxygen Delivery Method Room Air Oxygen Flow Rate Oxygen Delivery Method Room Air Oxygen Flow Rate 0 Narrative Exam Narrative: GEN: no acute distress CV: RRR no m/r/g PULM: diminished breath sounds bilaterally lung bases, slight inspiratory wheezing ABD: soft, nontender, nondistended, no organomegaly EXT: warm and well perfused 1+ pitting edema NEURO: awake, alert, oriented, no focal deficits Objective Labs 08/28/23 15:30 08/28/23 15:30 Labs: Laboratory Results - last 24 hr 08/28/23 08/28/23 15:30 18:00 WBC 17.0 H RBC 4.67 Hgb 12.6 Hct 38.5 MCV 82.4 MCH 27.1 MCHC 32.9 RDW 15.4 H Plt Count 441 H Neut % (Auto) 84.1 H Lymph % (Auto) 6.0 L [place] % (Auto) 6.1 Eos % (Auto) 3.2 Baso % (Auto) 0.6 Neut # (Auto) 76071 H Lymph # (Auto) 1000 L [place] # (Auto) 1000 H Eos # (Auto) 500 H Baso # (Auto) 100 VBG pH 7.38 VBG pCO2 43.5 L VBG pO2 45 VBG HCO3 26 VBG Total CO2 27 VBG O2 Saturation 80 H VBG Base Excess 1.0 FiO2 21 Sodium 132 L Potassium 4.5 Chloride 99 Carbon Dioxide 29 BUN 28 H Creatinine 1.92 H Estimated GFR 27 L BUN/Creatinine Ratio 14.6 Glucose 103 Calcium 9.4 Total Bilirubin 0.8 AST 23 ALT 17 Alkaline Phosphatase 109 Troponin I < 0.012 NT-Pro-B Natriuret Pep 4040 H Total Protein 7.9 Albumin 3.6 Globulin 4.3 H Albumin/Globulin Ratio 0.8 L SARS-CoV-2 (PCR) Negative Influenza A (RT-PCR) Flu a negative Influenza B (RT-PCR) Flu b negative RSV (PCR) Negative [facility] Medical History Asthma (~1999) Allergies Restless leg syndrome (~2004) Fractures Mumps Measles Chicken pox History of recurrent ear infection Hearing loss (~1999) History of urinary incontinence (~2007) GERD (gastroesophageal reflux disease) Anemia Atrial fibrillation with RVR (~2019) Chronic kidney disease Congestive heart failure Leg cramps Hypertension GI bleed (~2022) Osteoporosis (~2002) Systolic heart failure Chronic atrial fibrillation Surgical History Anesthesia History of bilateral knee replacement History of bilateral hip replacements No pertinent past surgical history Family History Father History of heart disease History of kidney disease Mother Cancer Social History household members: spouse Smoking Status: Never smoker alcohol intake: current Assessment & Plan Assessment & Plan narrative: 1. Sepsis with acute respiratory failure with hypoxia and KARIN, secondary to bilateral bacterial pneumonia, present on admission - SOFA score of 2. - Levofloxacin given in the emergency room, change to ceftriaxone and azithromycin for CAP coverage. Patient reports she cannot recall penicillin allergy, may have had skin redness possibly. Discussed with patient and she was agreeable to ceftriaxone. - follow up cultures drawn - wean from O2 as able, goal O2 89-96% while on supplemental therapy. - RT eval and treat, started steroids for possible COPD exacerbation given ER provider concern for wheezing, differential includes volume overload from known heart failure as well. Will trial some furosemide today with proBNP 4040 on admit for slight diuresis. - additional consideration may be amiodarone lung toxicity but felt to be much less likely. Consider CT imaging if no improvement given lung involvement on CXR. - no reported vomiting, doubt history of stricture contributing to presentation but also a possibility of aspiration. Consider NECKTIE MAKER vs esophogram depending on hospital course. 2. Chronic atrial fibrillation - continue home amiodarone and beta kenrick - monitor with tele as does have history of difficult to control RVR requiring cardioversion. 3. KARIN on CKD stage III - suspect in setting of sepsis. Will avoid continuous fluids at this time due to concern above for volume overload. Repeat BMP later today. 4. Possible acute on chronic HFrEF - previous EF 30-35% in setting of afib with RVR. - possible acute component as well but more likely pneumonia. - consider TTE but unlikely to global director air and climate change at this time. 4. HTN - continue home medications 5. Depression, chronic - continue escitalopram 6. COPD with exacerbation - see above. Code: Full, surrogate Cornelius Nelson, Additional history obtained via discussion with ER provider. I have reviewed patient's EKG, documentation, and laboratory evaluation. I have utilized all available immediate resources to obtain, update, or review the patient's current medications. Dispo: Admitted inpatient, her stay is expected to exceed two midnights.
[2023-08-29 13:52] LABS: Add Manual Diff / Slide Review NO; Basophils Absolute Auto 0 /uL (0-100); Basophils Percent Auto 0.3 % (0-2); Eosinophils Absolute Auto 0 /uL (0-450); Hematocrit 35.6 % (36-46); Hemoglobin 11.6 g/dL (12.0-16.0); Lymphocytes Absolute Auto 600 /uL (1100-4500); Lymphocytes Percent Auto 5.1 % (25-40); Mean Corpuscular HGB Conc 32.5 % (30-36); Mean Corpuscular Hemoglobin 26.8 PG (26-34); Mean Corpuscular Volume 82.5 fL (80-100); Monocytes Absolute Auto 200 /uL (0-900); Neutrophils Absolute Auto 10700 /uL (1500-7000); Neutrophils Percent Auto 92.6 % (50-75); Platelet Count 362 X10^3/uL (150-400); Red Blood Cell Count 4.31 X10^6/uL (4.0-5.2); Red Cell Distribution Width 15.4 % (11.6-14.8); White Blood Cell Count 11.6 X10^3/uL (4.5-11.0)
[2023-08-29 14:03] LABS: BUN Creatinine Ratio 20.5 (6-22); Blood Urea Nitrogen 36 mg/dL (7-17); Calcium 9.2 mg/dL (8.4-10.2); Carbon Dioxide 24 mmol/L (22-32); Chloride 102 mmol/L (98-107); Estimated Glomerular Filt Rate 30 mL/min (>60); Glucose 212 mg/dL (80-110); HEMOLYSIS < 15 (0-50); Magnesium 1.9 mg/dL (1.6-2.3); Potassium 4.8 mmol/L (3.4-5.1); Sodium 133 mmol/L (137-145)
[2023-08-29] MEDS: FUROSEMIDE 40 MG/4 ML VIAL IV (14:13)
[2023-08-29] MEDS: cefTRIAXone 1,000 MG in SODIUM CHLORIDE 0.9% 100 ML 200 MG IV (14:13)
[2023-08-29] MEDS: AZITHROMYCIN 500 MG in DEXTROSE 5% IN WATER 250 ML 250 MG IV (16:44)
[2023-08-29] MEDS: NIFEdipine 30 MG TAB ER 60 MG PO (16:44)
--- NOTE | 2023-08-29 18:00 | PC.NURSE ---
Azithromycin infusion paused d/t pt c/o pain at IV site. Withdrew medication in IV, blood return present, but painful for patient and slight signs of infiltration. Second IV placed, infusion restarted
[2023-08-29] MEDS: BENZOCAINE/MENTHOL 1 LOZ PKT 1 EACH PO (21:17)
[2023-08-30] VITALS (17 sets, daily range): BP systolic 99–134; BP diastolic 45–71; PULSE 54–108; RESP 16–20; TEMP 35.9–37.1; O2SAT 92–98
[2023-08-30 06:26] LABS: Add Manual Diff / Slide Review NO; Basophils Absolute Auto 100 /uL (0-100); Basophils Percent Auto 0.4 % (0-2); Eosinophils Absolute Auto 0 /uL (0-450); Hematocrit 34.4 % (36-46); Hemoglobin 11.2 g/dL (12.0-16.0); Lymphocytes Absolute Auto 600 /uL (1100-4500); Lymphocytes Percent Auto 3.6 % (25-40); Mean Corpuscular HGB Conc 32.7 % (30-36); Mean Corpuscular Hemoglobin 26.9 PG (26-34); Mean Corpuscular Volume 82.3 fL (80-100); Monocytes Absolute Auto 500 /uL (0-900); Monocytes Percent Auto 2.8 % (3-14); Neutrophils Absolute Auto 16600 /uL (1500-7000); Neutrophils Percent Auto 93.2 % (50-75); Platelet Count 372 X10^3/uL (150-400); Red Blood Cell Count 4.17 X10^6/uL (4.0-5.2); Red Cell Distribution Width 15.2 % (11.6-14.8); White Blood Cell Count 17.8 X10^3/uL (4.5-11.0)
[2023-08-30 06:40] LABS: BUN Creatinine Ratio 21.8 (6-22); Blood Urea Nitrogen 44 mg/dL (7-17); Calcium 9.1 mg/dL (8.4-10.2); Carbon Dioxide 28 mmol/L (22-32); Chloride 102 mmol/L (98-107); Estimated Glomerular Filt Rate 26 mL/min (>60); Glucose 153 mg/dL (80-110); HEMOLYSIS < 15 (0-50); Potassium 5.1 mmol/L (3.4-5.1); Sodium 134 mmol/L (137-145)
[2023-08-30] MEDS: ALBUTEROL/IPRATROPIUM 3 ML AMPUL INH ×3 (07:43→20:10)
[2023-08-30] MEDS: BUDESONIDE 0.5 MG/2 ML NEB INH ×2 (07:43→20:10)
[2023-08-30] MEDS: cefTRIAXone 2,000 MG in SODIUM CHLORIDE 0.9% 100 ML 200 MG IV (09:05)
[2023-08-30] MEDS: APIXABAN 5 MG TABLET PO ×2 (09:51→21:14)
[2023-08-30] MEDS: SPIRONOLACTONE 25 MG TABLET PO (09:51)
[2023-08-30] MEDS: predniSONE 20 MG TABLET 40 MG PO (09:51)
[2023-08-30] MEDS: PANTOPRAZOLE DR 40 MG TABLET PO ×2 (09:51→21:14)
[2023-08-30] MEDS: ESCITALOPRAM 10 MG TABLET 5 MG PO (09:51)
[2023-08-30] MEDS: METOPROLOL ER 50 MG TABLET PO ×2 (09:51→21:14)
[2023-08-30] MEDS: AMIODARONE 200 MG TABLET PO (09:51)
[2023-08-30] MEDS: AZITHROMYCIN 500 MG in DEXTROSE 5% IN WATER 250 ML 250 MG IV (16:08)
--- NOTE | 2023-08-30 17:17 | PM.PN.1 ---
Subjective Subjective Interval history: Patient's breathing slowly improving. Still on 2L NC. Exam Vital Signs (past 8 hours): - 08/30/23 09:51 08/30/23 12:00 08/30/23 13:18 Temperature 98.7 F Pulse Rate 65 61 Respiratory Rate 18 Blood Pressure 106/51 L 99/52 L Pulse Oximetry 96 96 Oxygen Delivery Method Nasal Cannula Oxygen Flow Rate 3 2 08/30/23 15:50 Temperature 98.7 F Pulse Rate 108 H Respiratory Rate 18 Blood Pressure 108/51 L Pulse Oximetry 93 Oxygen Delivery Method Oxygen Flow Rate 2 Fraction of Inspired Oxygen 34 SaO2/FiO2 Ratio 279 Oxygen Delivery Method Nasal Cannula Oxygen Flow Rate 2 Narrative Exam Narrative: GEN: no acute distress CV: RRR no m/r/g PULM: expiratory wheezes present bilaterally ABD: soft, nontender, nondistended, no organomegaly EXT: warm and well perfused 1+ pitting edema NEURO: awake, alert, oriented, no focal deficits Objective Labs 08/30/23 05:50 08/30/23 05:50 Labs: Laboratory Results - last 24 hr 08/30/23 05:50 WBC 17.8 H D RBC 4.17 Hgb 11.2 L Hct 34.4 L MCV 82.3 MCH 26.9 MCHC 32.7 RDW 15.2 H Plt Count 372 Neut % (Auto) 93.2 H Lymph % (Auto) 3.6 L [place] % (Auto) 2.8 L Eos % (Auto) 0.0 L Baso % (Auto) 0.4 Neut # (Auto) 54370 H Lymph # (Auto) 600 L [place] # (Auto) 500 Eos # (Auto) 0 Baso # (Auto) 100 Sodium 134 L Potassium 5.1 Chloride 102 Carbon Dioxide 28 BUN 44 H Creatinine 2.02 H Estimated GFR 26 L BUN/Creatinine Ratio 21.8 Glucose 153 H Calcium 9.1 Magnesium 2.0 PFSH Medical History Asthma (~1999) Allergies Restless leg syndrome (~2004) Fractures Mumps Measles Chicken pox History of recurrent ear infection Hearing loss (~1999) History of urinary incontinence (~2007) GERD (gastroesophageal reflux disease) Anemia Atrial fibrillation with RVR (~2019) Chronic kidney disease Congestive heart failure Leg cramps Hypertension GI bleed (~2023) Osteoporosis (~2002) Systolic heart failure Chronic atrial fibrillation Surgical History Anesthesia History of bilateral knee replacement History of bilateral hip replacements No pertinent past surgical history Family History Father History of heart disease History of kidney disease Mother Cancer Social History household members: spouse Smoking Status: Never smoker alcohol intake: current Assessment & Plan Assessment & Plan narrative: 1. Sepsis with acute respiratory failure with hypoxia and KARIN, secondary to bilateral bacterial pneumonia, present on admission - SOFA score of 2. - Levofloxacin given in the emergency room, change to ceftriaxone and azithromycin for CAP coverage. Patient reports she cannot recall penicillin allergy, may have had skin redness possibly. Discussed with patient and she was agreeable to ceftriaxone. No issues so far. - follow up cultures drawn, no growth so far - wean from O2 as able, goal O2 89-96% while on supplemental therapy. - RT eval and treat, started steroids for possible COPD exacerbation given ER provider concern for wheezing, differential includes volume overload from known heart failure as well. Will trial some furosemide today with proBNP 4040 on admit for slight diuresis. - additional consideration may be amiodarone lung toxicity but felt to be much less likely. Consider CT imaging if no improvement given lung involvement on CXR. - no reported vomiting, doubt history of stricture contributing to presentation but also a possibility of aspiration. Consider SAW BOSS vs esophogram depending on hospital course. 2. Chronic atrial fibrillation - continue home amiodarone and beta kenrick - monitor with tele as does have history of difficult to control RVR requiring cardioversion. 3. KARIN on CKD stage III - suspect in setting of sepsis. Will avoid continuous fluids at this time due to concern above for volume overload. - Cr 2, baseline 1.3 - gentle IVF 4. Possible acute on chronic HFrEF - previous EF 30-35% in setting of afib with RVR. - possible acute component as well but more likely pneumonia. - consider TTE but unlikely to manager exchange at this time. 4. HTN - continue home medications 5. Depression, chronic - continue escitalopram 6. COPD with exacerbation - continue prednisone 40mg x5 days Code: Full, surrogate Cornelius Nelson, Additional history obtained via discussion with ER provider. I have reviewed patient's EKG, documentation, and laboratory evaluation. I have utilized all available immediate resources to obtain, update, or review the patient's current medications. Dispo: Home in 1-2 days pending improvement in hypoxia and PNA.
[2023-08-30] MEDS: SODIUM CHLORIDE 0.9% 1,000 ML 75 ML IV (18:21)
[2023-08-30] MEDS: PRAMIPEXOLE 0.25 MG TABLET 0.125 MG PO (21:12)
[2023-08-30] MEDS: DOCUSATE 100 MG CAPSULE PO (21:13)
[2023-08-31] VITALS (9 sets, daily range): BP systolic 113–143; BP diastolic 45–63; PULSE 58–68; RESP 15–20; TEMP 35.8–37; O2SAT 92–96
[2023-08-31 06:41] LABS: Add Manual Diff / Slide Review NO; Basophils Absolute Auto 0 /uL (0-100); Basophils Percent Auto 0.2 % (0-2); Eosinophils Absolute Auto 0 /uL (0-450); Hematocrit 33.8 % (36-46); Hemoglobin 11.2 g/dL (12.0-16.0); Lymphocytes Absolute Auto 600 /uL (1100-4500); Lymphocytes Percent Auto 3.2 % (25-40); Mean Corpuscular HGB Conc 33.1 % (30-36); Mean Corpuscular Hemoglobin 27.5 PG (26-34); Mean Corpuscular Volume 83.2 fL (80-100); Monocytes Absolute Auto 500 /uL (0-900); Monocytes Percent Auto 2.8 % (3-14); Neutrophils Absolute Auto 17600 /uL (1500-7000); Neutrophils Percent Auto 93.8 % (50-75); Platelet Count 402 X10^3/uL (150-400); Red Blood Cell Count 4.06 X10^6/uL (4.0-5.2); Red Cell Distribution Width 15.4 % (11.6-14.8); White Blood Cell Count 18.8 X10^3/uL (4.5-11.0)
[2023-08-31 06:53] LABS: BUN Creatinine Ratio 26.7 (6-22); Blood Urea Nitrogen 48 mg/dL (7-17); Calcium 8.9 mg/dL (8.4-10.2); Carbon Dioxide 25 mmol/L (22-32); Chloride 105 mmol/L (98-107); Estimated Glomerular Filt Rate 29 mL/min (>60); Glucose 137 mg/dL (80-110); HEMOLYSIS < 15 (0-50); Potassium 4.8 mmol/L (3.4-5.1); Sodium 135 mmol/L (137-145)
[2023-08-31] MEDS: ALBUTEROL 2.5 MG/3 ML NEB (ADULT) INH (08:15)
[2023-08-31] MEDS: BUDESONIDE 0.5 MG/2 ML NEB INH ×2 (08:15→19:16)
[2023-08-31] MEDS: predniSONE 20 MG TABLET 40 MG PO (08:42)
[2023-08-31] MEDS: SPIRONOLACTONE 25 MG TABLET PO (08:42)
[2023-08-31] MEDS: AMIODARONE 200 MG TABLET PO (08:42)
[2023-08-31] MEDS: APIXABAN 5 MG TABLET PO ×2 (08:42→20:07)
[2023-08-31] MEDS: PANTOPRAZOLE DR 40 MG TABLET PO ×2 (08:42→20:07)
[2023-08-31] MEDS: cefTRIAXone 2,000 MG in SODIUM CHLORIDE 0.9% 100 ML 200 MG IV (08:42)
[2023-08-31] MEDS: METOPROLOL ER 50 MG TABLET PO ×2 (08:42→20:07)
[2023-08-31] MEDS: DOCUSATE 100 MG CAPSULE PO ×2 (08:42→20:06)
[2023-08-31] MEDS: ESCITALOPRAM 10 MG TABLET 5 MG PO (08:43)
[2023-08-31] MEDS: SODIUM CHLORIDE 0.9% FLUSH 10 ML IV ×2 (08:43→20:08)
[2023-08-31] MEDS: ALBUTEROL/IPRATROPIUM 3 ML AMPUL INH ×2 (13:14→19:16)
--- NOTE | 2023-08-31 14:10 | PT.IIE ---
Current Diagnoses Sepsis, unspecified organism (08/28/23) Surgical History (Last Reviewed 08/28/23 @ 18:23 by Azael Hector DO) Anesthesia History of bilateral hip replacements History of bilateral knee replacement No pertinent past surgical history Medical History (Last Reviewed 08/28/23 @ 18:23 by Azael Hector DO) Allergies Anemia Asthma (~1999) Atrial fibrillation with RVR (~2019) Chicken pox Chronic atrial fibrillation Chronic kidney disease Congestive heart failure Fractures GERD (gastroesophageal reflux disease) GI bleed (~2022) Hearing loss (~1999) History of recurrent ear infection History of urinary incontinence (~2007) Hypertension Leg cramps Measles Mumps Osteoporosis (~2002) Restless leg syndrome (~2004) Systolic heart failure Physical Therapy Inpatient Evaluation/Re-Eval M1 PT/OT-IP Prior Functional Status Start: 08/31/23 15:57 Freq: NEEDED Status: Active Protocol: Document 08/31/23 14:10 AB (Rec: 08/31/23 16:10 AB [id number]) Medical Review Prior Functional Status Medical History Reviewed Yes Communication agreeable to do PT Mobility and Gait pt stated that she was modified independent with all mobilities and ambulation using a hurrycane Social History Household Members spouse Living Arrangements House Number of Floors (Floors) One Floor Number of Stairs To Enter/Railing? 3 steps to enter with posts on the last step where pt usually reaches over and pulls herself up to climb the steps Home Environment High Toilet,Walk in Shower, Built-In Shower Seat Home Equipment Hand Held Shower,Grab Bars Near Toilet,Grab Bars In Shower Additional Social History Comment pt has a hurrycane pt stated that she can borrow a FWW from her neighbor M2 PT-IP Current Condition Start: 08/31/23 15:57 Freq: NEEDED Status: Active Protocol: Document 08/31/23 14:10 AB (Rec: 08/31/23 16:10 AB [id number]) Physical Therapy Current Condition Current Condition Evaluation Date 08/31/23 Treatment Diagnosis sepsis; PNA; difficulty in walking Onset Date 08/28/23 M3 PT-IP Subjective Start: 08/31/23 15:57 Freq: NEEDED Status: Active Protocol: Document 08/31/23 14:10 AB (Rec: 08/31/23 16:10 AB [id number]) Subjective Physical Therapy Visit Type Type Initial Evaluation Visit Start Time 14:10 Visit Stop Time 14:30 Number of PEER COUNSELOR Visits 0 Physical Therapy Visit Comments Patient Comments pt is agreeable to do PT M4 PT-IP Mobility and Gait Start: 08/31/23 15:57 Freq: NEEDED Status: Active Protocol: Document 08/31/23 14:10 AB (Rec: 08/31/23 16:10 AB [id number]) PT-Bed Mobility Assessment Supine to Sit Supine to Sit Standby Assistance PT-Transfer Assessment Sit to and From Stand Sit to and from Stand Minimal Assistance,1 Person Assistance,Use of Upper Extremities Equipment Transfer Assistive Device Gait Belt,Front Wheeled Walker Orthotic/Prosthetic Devices or Brace: No Transfers Transfer Destination Chair Transfer Technique ambulated Transfer Ability Level of Assist Minimal Assistance,1 Person Assistance,Use of Upper Extremities Comments Mobility Comments pt supine in bed and agreeable to do PT. spouse in room with pt and stated that he will be able to assist pt at home. obtained PLOF and home set up from pt and spouse. BP checked: 123/49 DE: 62-64 O2 sat ar RA: 94%. pt completed supine to sit SBA. able to sit on EOB SBA. (+) SOB. O2 sat: 91-92%. cued for deep breathing. no c/o dizziness/ lightheadedness in sitting. completed sit to stand min A and ambulated in room using FWW min A ~ 35 ft. presents with unsteady gait with decrease LE clearance and elevation. (+) SOB. pt sat on the chair. O2 sat checked: 86%. cued for deep breathing and O2 sat increased to 91-92% at RA. positioned pt on the chair. call light and table placed within reach. recommending use of FWW at this time and pt stated that she can borrow one from her neighbor. Gait Assessment Gait Gait Assistance Required: Minimum Assistance Distance (Feet) 35 Able to Maintain Weight Bearing Status Yes During Gait Assistive Devices Assistive Device Gait Belt,Front Wheeled Walker Orthotic/Prosthetic Devices or Brace: No Gait Deviations General Gait Pattern Decreased Stride Length, Decreased Feet Clearance,Step- to Gait Factors Limiting Gait Function Factors Limiting Gait Function Decreased Activity Tolerance, Decreased Strength,Poor Balance,Poor Safety Awareness PT-Balance Assessment Sitting Balance and Reactions Static Sitting Balance Ability Good Dynamic Sitting Balance Ability Good Standing Balance and Reactions Static Standing Balance Ability Fair Dynamic Standing Balance Ability Fair Device Used FWW M5 PT-IP Objective Assessments Start: 08/31/23 15:57 Freq: NEEDED Status: Active Protocol: Document 08/31/23 14:10 AB (Rec: 08/31/23 16:10 AB [id number]) Orientation Orientation/Cognition Level of Alertness Alert Language Function Ability Hard of Hearing Safety Awareness Decreased Safety Awareness Memory Description Short Term Impaired Gross Range of Motion Lower Extremity ROM Assessment Within Functional Limits Strength Lower Extremity Strength Hip 4-/5 Knee 4-/5 Muscle Tone Muscle Tone WNL Yes M6 PT-IP Treatment Start: 08/31/23 15:57 Freq: NEEDED Status: Active Protocol: Document 08/31/23 14:10 AB (Rec: 08/31/23 16:10 AB [id number]) Physical Therapy Treatment Education Education Provided Safety M7 PT-IP Assessment and Plan Start: 08/31/23 15:57 Freq: NEEDED Status: Active Protocol: Document 08/31/23 14:10 AB (Rec: 08/31/23 16:10 AB [id number]) PT Summary Assessment and Plan Potential Rehabilitation Potential Fair Status of Condition at Evaluation Evolving Summary Impairments Pain,ROM,Strength,Balance, Coordination,Sensation,Bed Mobility,Transfers,Gait, Activity Tolerance Assessment Summary Pt is a 72 y/o F who presented to the ED for increase coughing and SOB. pt admitted for sepsis with respiratory failure; PNA; KARIN. pt requiring min A with mobility using FWW. presents with unsteady gait and recommending use of FWW at this time. pt will require 24/7 assist at this time. spouse stated that he can assist pt at home. will conduct caregiver training when appropriate as well as stair climbing training. will continue to assess. pt will benefit from HHPT. Goals Bed Mobility Goal Independent Transfer Goal Independent,Front Wheeled Walker Gait Goal Independent,Front Wheel Walker Gait Distance 200 Other Goals improve transfers and ambulation using LRAD ~ 250 ft mod I up/down 3 steps hurrycane/post or HOT TOP LINER CGA Days to Meet Goals 10 Frequency of Treatment Frequency Of Treatment Once a Day Treatment Plan Physical Therapy Treatment Plan Bed Mobility Training,Transfer Training,Gait Training, Therapeutic Exercise,Balance Retraining,Discharge Planning, Hot or Cold Pack,Neuromuscular Re-ed,Coordination Retraining Precautions Other Precautions O2 sat; falls Recommendations To Nursing Amount of Assist Needed 1 Person Assist Discharge Recommendations PT Discharge Recommendations Home with 24/ Assist Available,Home Health Equipment Needed for Home Before FWW Discharge Transportation Needs at Discharge Private Vehicle,Wheelchair/ Cabulance
--- NOTE | 2023-08-31 15:22 | CM.DPC ---
DCP HH Planning: Per MD, pt making some progress and has remained on 1LO2 and may need RT to assess for home O2 and to work with PT/OT and likely here one more day. Per PT, CGA and recommending FWW that spouse states he can secure from friend and home with spouse assist and HH. SW met bedside with pt and spouse and explained role and discussed HH recommendation and provided HH Choice List and no HH preference. Pt and spouse confirm that their preference is home tomorrow if medically stable and spouse will assist and retired. Pt states she has used HH before but not in [place] and feels HH would be beneficial especially since she is still desatting with exertion. CC Kiara kindly made HH referral to [facility] based on [facility] Calendar and pt living in [place] and [facility] done but not yet faxed and HH orders placed. Plan: SW to follow closely for likely discharge home tomorrow via spouse POV and new [facility] referral made. Holly Quijano MSW
--- NOTE | 2023-08-31 16:07 | P.PN_ITS ---
Subjective Subjective Interval history: Patient continuing to improve, feeling better today. Down to 1L NC. Willing to work with PT today. Exam Vital Signs (past 8 hours): - 08/31/23 08:42 08/31/23 12:00 08/31/23 12:00 Temperature 96.5 F L Pulse Rate 58 L Respiratory Rate 18 Blood Pressure 143/61 H 131/58 L Pulse Oximetry 93 96 Oxygen Delivery Method Room Air Oxygen Flow Rate 1 0 08/31/23 13:16 08/31/23 15:49 08/31/23 16:00 Temperature 97.8 F Pulse Rate 58 L Respiratory Rate 18 Blood Pressure 124/53 L Pulse Oximetry 92 96 92 Oxygen Delivery Method Room Air Room Air Oxygen Flow Rate 0 1 Fraction of Inspired Oxygen 34 SaO2/FiO2 Ratio 279 Oxygen Delivery Method Room Air Oxygen Flow Rate 1 Narrative Exam Narrative: GEN: no acute distress CV: RRR no m/r/g PULM: expiratory wheezes present bilaterally have improved ABD: soft, nontender, nondistended, no organomegaly EXT: warm and well perfused 1+ pitting edema NEURO: awake, alert, oriented, no focal deficits Objective Labs 08/31/23 05:30 08/31/23 05:30 Labs: Laboratory Results - last 24 hr 08/31/23 05:30 WBC 18.8 H RBC 4.06 Hgb 11.2 L Hct 33.8 L MCV 83.2 MCH 27.5 MCHC 33.1 RDW 15.4 H Plt Count 402 H Neut % (Auto) 93.8 H Lymph % (Auto) 3.2 L [place] % (Auto) 2.8 L Eos % (Auto) 0.0 L Baso % (Auto) 0.2 Neut # (Auto) 48406 H Lymph # (Auto) 600 L [place] # (Auto) 500 Eos # (Auto) 0 Baso # (Auto) 0 Sodium 135 L Potassium 4.8 Chloride 105 Carbon Dioxide 25 BUN 48 H Creatinine 1.80 H Estimated GFR 29 L BUN/Creatinine Ratio 26.7 H Glucose 137 H Calcium 8.9 Magnesium 2.0 PFSH Medical History Asthma (~1999) Allergies Restless leg syndrome (~2004) Fractures Mumps Measles Chicken pox History of recurrent ear infection Hearing loss (~1999) History of urinary incontinence (~2007) GERD (gastroesophageal reflux disease) Anemia Atrial fibrillation with RVR (~2019) Chronic kidney disease Congestive heart failure Leg cramps Hypertension GI bleed (~2022) Osteoporosis (~2002) Systolic heart failure Chronic atrial fibrillation Surgical History Anesthesia History of bilateral knee replacement History of bilateral hip replacements No pertinent past surgical history Family History Father History of heart disease History of kidney disease Mother Cancer Social History household members: spouse Smoking Status: Never smoker alcohol intake: current Assessment & Plan Assessment & Plan narrative: 1. Sepsis with acute respiratory failure with hypoxia and KARIN, secondary to bilateral bacterial pneumonia, present on admission - SOFA score of 2. - Levofloxacin given in the emergency room, change to ceftriaxone and azithromycin for CAP coverage. Patient reports she cannot recall penicillin allergy, may have had skin redness possibly. Discussed with patient and she was agreeable to ceftriaxone. No issues so far. - follow up cultures drawn, no growth so far - wean from O2 as able, goal O2 89-96% while on supplemental therapy. - RT eval and treat, started steroids for possible COPD exacerbation given ER provider concern for wheezing, differential includes volume overload from known heart failure as well. Will trial some furosemide today with proBNP 4040 on admit for slight diuresis. - additional consideration may be amiodarone lung toxicity but felt to be much less likely. Consider CT imaging if no improvement given lung involvement on CXR. - no reported vomiting, doubt history of stricture contributing to presentation but also a possibility of aspiration. Consider TYPESETTER PERFORATOR OPERATOR vs esophogram depending on hospital course. 2. Chronic atrial fibrillation - continue home amiodarone and beta kenrick - monitor with tele as does have history of difficult to control RVR requiring cardioversion. 3. KARIN on CKD stage III - suspect in setting of sepsis. Will avoid continuous fluids at this time due to concern above for volume overload. - Cr 2, baseline 1.3 - gentle IVF 4. Possible acute on chronic HFrEF - previous EF 30-35% in setting of afib with RVR. - possible acute component as well but more likely pneumonia. - consider TTE but unlikely to blade changer at this time. 4. HTN - continue home medications 5. Depression, chronic - continue escitalopram 6. COPD with exacerbation - continue prednisone 40mg x5 days Code: Full, surrogate Cornelius Nelson, Additional history obtained via discussion with ER provider. I have reviewed patient's EKG, documentation, and laboratory evaluation. I have utilized all available immediate resources to obtain, update, or review the patient's current medications. Dispo: Home in 1-2 days pending improvement in hypoxia and PNA. PT eval pending.
--- NOTE | 2023-08-31 16:25 | OT.IP.EVAL ---
Current Diagnoses Sepsis, unspecified organism (08/28/23) Past Medical History (Last Reviewed 08/28/23 @ 18:23 by Azael Hector DO) Allergies Anemia Asthma (~1999) Atrial fibrillation with RVR (~2019) Chicken pox Chronic atrial fibrillation Chronic kidney disease Congestive heart failure Fractures GERD (gastroesophageal reflux disease) GI bleed (~2022) Hearing loss (~1999) History of recurrent ear infection History of urinary incontinence (~2007) Hypertension Leg cramps Measles Mumps Osteoporosis (~2002) Restless leg syndrome (~2004) Systolic heart failure Surgical History (Last Reviewed 08/28/23 @ 18:23 by Azael Hector DO) Anesthesia History of bilateral hip replacements History of bilateral knee replacement No pertinent past surgical history Occupational Therapy Inpatient Evaluation/Re-Eval M1 PT/OT-IP Prior Functional Status Start: 08/31/23 16:46 Freq: NEEDED Status: Active Protocol: Document 08/31/23 16:46 [facility] (Rec: 08/31/23 17:03 [facility] [id number]) Medical Review Prior Functional Status Medical History Reviewed Yes Communication agreeable to do PT Mobility and Gait pt stated that she was modified independent with all mobilities and ambulation using a hurrycane Activities of Daily Living and IADL's Pt able to do all ADl and IADl needs. Pt's usually drives. Social History Household Members spouse Living Arrangements House Number of Floors (Floors) One Floor Number of Stairs To Enter/Railing? 3 steps to enter with posts on the last step where pt usually reaches over and pulls herself up to climb the steps Home Environment High Toilet,Walk in Shower, Built-In Shower Seat Home Equipment Bedside Commode,Hand Held Shower,Wood Handler,Sock Aid,Grab Bars Near Toilet,Grab Bars In Shower Additional Social History Comment pt has a hurrycane pt stated that she can borrow a FWW from her neighbor M2 OT-IP Current Condition Start: 08/31/23 16:46 Freq: Status: Active Protocol: Document 08/31/23 16:46 [facility] (Rec: 08/31/23 17:03 [facility] [id number]) Occupational Therapy Current Condition Current Condition Evaluation Date 08/31/23 Treatment Diagnosis Sepsis with acute respiratory failure with hypoxia, PNA Diagnosis Onset Date 08/28/23 M3 OT- IP Subjective and Pain Start: 08/31/23 16:46 Freq: Status: Active Protocol: Document 08/31/23 16:46 [facility] (Rec: 08/31/23 17:03 [facility] [id number]) OT- Subjective Occupational Therapy Visit Type Type Initial Evaluation Visit Start Time 14:55 Visit Stop Time 16:25 Occupational Therapy Visit Comments Patient Comments Pt agreed to get up. Patient/Caregiver Goals To go home. OT Pain Assessment Pain When Pain Assessed At Rest Pain Present Pain Present Denied Pain M4 OT- IP ADL's Start: 08/31/23 16:46 Freq: Status: Active Protocol: Document 08/31/23 16:46 [facility] (Rec: 08/31/23 17:03 [facility] [id number]) OT [id number] General Evaluation Self-Feeding Ability Independent OT ADL-Grooming Comments OT Grooming Comments Pt states to do later. OT ADL-Oral Care Comments Oral Care Comments Pt states to do later. OT ADL-Dressing General Eval Lower Body Dressing Ability Maximum Assistance Areas Needing Assistance Underpants/Brief,Socks Comments OT Dressing Comments Assist with socks and use of soybean specialties cook to assist to get the brief over her feet. OT ADL-Toileting General Evaluation Toileting Ability Total Assistance Comments OT Toileting Comments Pt's brief wet as not able to get to the bathroom in time and assist to change her brief out. Suggested use of BSC next to the bed. OT ADL-Bathing Comments OT Bathing Comments Not performed. M5 OT- IP IADL's Start: 08/31/23 16:46 Freq: Status: Active Protocol: Document 08/31/23 16:46 [facility] (Rec: 08/31/23 17:03 [facility] [id number]) OT-Instrumental Activities of Daily Living Deficits IADL Deficits Identified Deficits Home Safety Awareness Awareness of Need for Assistance at Home Good Awareness Ability to Problem Solve Emergency Able to Problem Solve Situations Home Safety Comments Pt's able to assist her as needed. Medication Management Medication Management No Deficits Identified Money Management Money Management No Deficits Identified Meal Preparation Meal Preparation Comments Pt will benefit from assist due to decreased activity tolerance. Fertilizer Mixer Fertilizer Mixer Comments Pt will benefit from assist due to decreased activity tolerance. M6 OT- IP Functional Cognition Start: 08/31/23 16:46 Freq: Status: Active Protocol: Document 08/31/23 16:46 [facility] (Rec: 08/31/23 17:03 [facility] [id number]) Cognitive Factors Limiting Selfcare Function Cognitive Ability Level of Alertness Alert Patient Orientation Name,Age,Birthday,Month,Date, Year,Day of Week,Place, Situation Attention Span Ability Capable of Focused Attention, Capable of Sustained Attention Ability to Follow Commands Able to Follow Multi-Step Commands Cognitive Comments Cognitive Assessment Comments Pt able to follow commands for ADL and mobility needs. OT- Vision and Hearing OT- Hearing Assessment OT- Hearing Assessment WFL,Use of Hearing Aids OT- Vision Assessment Visual Acuity Glasses All The Time Visual Attentiveness WFL Occular Pursuits WFL M7 OT- IP Mobility and Balance Start: 08/31/23 16:46 Freq: Status: Active Protocol: Document 08/31/23 16:46 [facility] (Rec: 08/31/23 17:03 [facility] [id number]) OT- Bed Mobility Assessment Supine to Sit Supine to Sit Assist Standby Assistance Sit to Supine Sit to Supine Assist Standby Assistance OT-Transfer Assessment Sit to and From Stand Sit to and from Stand Standby Assistance,Contact Guard Assistance Transfers Transfer Ability Standby Assistance Technique Transfer Destination Bed,Chair Transfer Technique Stand Step Pivot Devices Transfer Assistive Devices Gait Belt,Front Wheeled Walker Comments Mobility Comments CGA to stand from the recliner and SBA with FWW. Pt's to be picking up a fww for pt to use. Pt O2 on RA drops to 88% and needing to take a few deep breath in order to increase to 92%. OT- Balance Assessment Sitting Balance and Reactions Static Sitting Balance Ability Good Dynamic Sitting Balance Ability Good Standing Balance and Reactions Static Standing Balance Ability Fair Dynamic Standing Balance Ability Fair M8 OT- IP Objective Assessments Start: 08/31/23 16:46 Freq: Status: Active Protocol: Document 08/31/23 16:46 [facility] (Rec: 08/31/23 17:03 [facility] [id number]) OT Gross Range of Motion Upper Extremity Range of Motion Assessment Within Functional Limits OT Strength Upper Extremity Strength Assessment Within Functional Limits OT- Coordination Assessment Upper Extremity Finger to Nose Test Within Functional Limits M9 OT- IP Assessment and Plan Start: 08/31/23 16:46 Freq: Status: Active Protocol: Document 08/31/23 16:46 [facility] (Rec: 08/31/23 17:03 [facility] [id number]) OT Summary Assessment and Plan Potential Rehabilitation Potential Good Analytic Complexity at Evaluation Moderate Summary OT Impairments Balance,Functional Mobility, Grooming,Dressing,Toileting, Bathing,Toilet Transfers, Shower Transfers,Activity Tolerance Progress Towards Goals Progressing Toward Goals Assessment Summary Pt MOD complexity and main barriers are decreased activity tolerance and pt's O2 drops after exertion and needing to take deep breaths to get over 90%, pt now will continue to need LB dressing equipment to assist for her needs of dressing. Pt now will need use of the FWW. Pt has urinary urgency and may benefit from women's health PT . Pt to go home with her when medically stable. Goals Grooming Goal Independent Dressing Goal Independent,Wood Handler,Sock Aid Toileting Goal Independent Bathing Goal Independent Toilet Transfer Goal Independent Shower Transfer Goal Independent Days to Meet Goals 7 Frequency of Treatment Frequency Of Treatment Once a Day Treatment Plan OT Treatment Plan ADL Training,Functional Mobility,Patient/Family Education,Discharge Planning Discharge Recommendations OT Discharge Recommendations Home with Assistance,Home Health,Outpatient PT Other Discharge Recommendations Pending progress pt to have home health initially and then outpt PT for Women's [facility] Transportation Needs at Discharge Private Vehicle
[2023-08-31] MEDS: NIFEdipine 30 MG TAB ER 60 MG PO (16:54)
[2023-08-31] MEDS: PRAMIPEXOLE 0.25 MG TABLET 0.125 MG PO (20:08)
[2023-09-01] VITALS (7 sets, daily range): BP systolic 122–153; BP diastolic 60–69; PULSE 55–60; RESP 15–24; TEMP 35.8–36.6; O2SAT 94–97
[2023-09-01 05:54] LABS: Add Manual Diff / Slide Review NO; Basophils Absolute Auto 0 /uL (0-100); Basophils Percent Auto 0.2 % (0-2); Eosinophils Absolute Auto 0 /uL (0-450); Hematocrit 35.5 % (36-46); Hemoglobin 11.5 g/dL (12.0-16.0); Lymphocytes Absolute Auto 900 /uL (1100-4500); Lymphocytes Percent Auto 5.4 % (25-40); Mean Corpuscular HGB Conc 32.5 % (30-36); Mean Corpuscular Hemoglobin 27.3 PG (26-34); Mean Corpuscular Volume 83.9 fL (80-100); Monocytes Absolute Auto 600 /uL (0-900); Monocytes Percent Auto 3.7 % (3-14); Neutrophils Absolute Auto 15200 /uL (1500-7000); Neutrophils Percent Auto 90.7 % (50-75); Platelet Count 433 X10^3/uL (150-400); Red Blood Cell Count 4.23 X10^6/uL (4.0-5.2); Red Cell Distribution Width 15.5 % (11.6-14.8); White Blood Cell Count 16.8 X10^3/uL (4.5-11.0)
[2023-09-01 06:12] LABS: BUN Creatinine Ratio 25.7 (6-22); Blood Urea Nitrogen 46 mg/dL (7-17); Calcium 9.3 mg/dL (8.4-10.2); Carbon Dioxide 27 mmol/L (22-32); Chloride 106 mmol/L (98-107); Estimated Glomerular Filt Rate 30 mL/min (>60); Glucose 121 mg/dL (80-110); HEMOLYSIS < 15 (0-50); Magnesium 2.2 mg/dL (1.6-2.3); Potassium 5.3 mmol/L (3.4-5.1); Sodium 136 mmol/L (137-145)
--- NOTE | 2023-09-01 06:39 | PC.NURSE ---
K: 5.3, Dr. Calabrese made aware. New order to discontinue daily spirolactone. Order d/c'd.
[2023-09-01] MEDS: ALBUTEROL/IPRATROPIUM 3 ML AMPUL INH (08:44)
[2023-09-01] MEDS: BUDESONIDE 0.5 MG/2 ML NEB INH (08:44)
[2023-09-01] MEDS: predniSONE 20 MG TABLET 40 MG PO (09:01)
[2023-09-01] MEDS: PANTOPRAZOLE DR 40 MG TABLET PO (09:01)
[2023-09-01] MEDS: ESCITALOPRAM 10 MG TABLET 5 MG PO (09:01)
[2023-09-01] MEDS: APIXABAN 5 MG TABLET PO (09:01)
[2023-09-01] MEDS: METOPROLOL ER 50 MG TABLET PO (09:02)
[2023-09-01] MEDS: AMIODARONE 200 MG TABLET PO (09:02)
[2023-09-01] MEDS: cefTRIAXone 2,000 MG in SODIUM CHLORIDE 0.9% 100 ML 200 MG IV (09:02)
[2023-09-01] MEDS: DOCUSATE 100 MG CAPSULE PO (09:02)
[2023-09-01] MEDS: SODIUM ZIRCONIUM CYCLOSILICATE 10 GM POWD.PACK PO ×2 (09:03→15:17)
[2023-09-01] MEDS: SODIUM CHLORIDE 0.9% FLUSH 10 ML IV (09:03)
--- NOTE | 2023-09-01 10:34 | DI.CT.S_ITS ---
PROCEDURE: CT CHEST WO CON INDICATIONS: assess for pneumonia, vs amiodarone toxicity TECHNIQUE: Noncontrast 5 mm thick sections acquired from the pulmonary apices to the posterior costophrenic angles. 1 mm lung window, 5 mm thick coronal and sagittal and 7 mm axial MIP reformats were then acquired. For radiation dose reduction, the following was used: automated exposure control, adjustment of mA and/or kV according to patient size. COMPARISON: [facility], CR, XR CHEST 2V, 08/28/2023, 15:45. FINDINGS: Image quality: Diagnostic. Lower Neck: No enlarged lymph nodes. Thyroid: No thyroid nodules which require sonographic follow up, per consensus guidelines. Axillae: No enlarged lymph nodes. Chest Wall: Unremarkable. Bones: Chronic appearing compression deformity of the T12 vertebral body. Lungs and Pleura: No pneumothorax or pleural effusions. Peribronchovascular nodularity and consolidation. This favors the right lung greater than left. Focal consolidation of the lateral left upper lobe. Heart: Heart size is normal. No pericardial effusion. Thoracic Vessels: The aorta and pulmonary arteries demonstrate normal size. Mediastinum and Kayleigh: No enlarged lymph nodes. Esophagus: No wall thickening. No hiatal hernia. Significant food bolus within the lower esophagus. Upper Abdomen: Significant food bolus within the Renetta limb. Calcified granuloma of the liver and spleen. The liver is hyperattenuating, likely due to amiodarone. IMPRESSION: Peribronchovascular nodularity and consolidation, concerning for drug reaction over atypical pneumonia. Significant food bolus within the lower esophagus and Renetta limb. Outlet obstruction not excluded. Dictated by: Irving Blount M.D. on 09/01/2023 at 13:32 Approved by: Irving Blount M.D. on 09/01/2023 at 13:35
[2023-09-01 13:08] LABS: BUN Creatinine Ratio 29.6 (6-22); Blood Urea Nitrogen 47 mg/dL (7-17); Calcium 9.5 mg/dL (8.4-10.2); Carbon Dioxide 22 mmol/L (22-32); Chloride 105 mmol/L (98-107); Estimated Glomerular Filt Rate 34 mL/min (>60); Glucose 119 mg/dL (80-110); Sodium 133 mmol/L (137-145)
[2023-09-01 13:09] LABS: HEMOLYSIS 53 (0-50)
[2023-09-01 13:10] LABS: Potassium 5.3 mmol/L (3.4-5.1)
--- NOTE | 2023-09-01 14:00 | PT.IPTN ---
Current Diagnoses Sepsis, unspecified organism (08/28/23) Physical Therapy Treatment Note M2 PT-IP Current Condition Start: 08/31/23 15:57 Freq: NEEDED Status: Active Protocol: Document 08/31/23 14:10 AB (Rec: 08/31/23 16:10 AB [id number]) Physical Therapy Current Condition Current Condition Evaluation Date 08/31/23 Treatment Diagnosis sepsis; PNA; difficulty in walking Onset Date 08/28/23 M3 PT-IP Subjective Start: 08/31/23 15:57 Freq: NEEDED Status: Active Protocol: Document 09/01/23 14:00 AB (Rec: 09/01/23 16:18 AB [id number]) Subjective Physical Therapy Visit Type Type Treatment Note Visit Start Time 14:00 Visit Stop Time 14:33 Number of BILLING AND QUALITY TECHNICIAN Visits 0 Physical Therapy Visit Comments Patient Comments agreeable to do PT M4 PT-IP Mobility and Gait Start: 08/31/23 15:57 Freq: NEEDED Status: Active Protocol: Document 09/01/23 14:00 AB (Rec: 09/01/23 16:18 AB [id number]) PT-Bed Mobility Assessment Supine to Sit Supine to Sit Standby Assistance PT-Transfer Assessment Sit to and From Stand Sit to and from Stand Standby Assistance,Use of Upper Extremities Equipment Transfer Assistive Device Gait Belt,Front Wheeled Walker Orthotic/Prosthetic Devices or Brace: No Transfers Transfer Destination Toilet Transfer Technique ambulated Transfer Ability Level of Assist Standby Assistance,Contact Guard Assistance,1 Person Assistance,Use of Upper Extremities Comments Mobility Comments pt supine in bed and agreeable to do PT. completed supine to sit SBA. pt requested to use the toilet. completed sit to stand CGA and ambulated to the toilet using fWW SBA to CGA. pt required assist with brief management. pt completed sit to stand from the toilet SBA using grab bar and ambulated to the sink using FWW SBA to CGA. able to maintain standing balance using counter/ FWW for support SBA while completing handwashing. pt ambulated to the chair SBA using fWW. pt initially refuse to do stair climbing and asked about going home and informed her that she did not want to do stairs and that she has stairs to get into the house. pt then agreed to stairs. pt ambulated from chair to w/c ~ 25 ft using fWW SBA. stair climbing training. educated pt on how to do stairs. pt completed up/down steps using hurrycane and R rail CGA. pt stated that she only has 2 steps and has R side post that she pulls to get up or hold on to her spouse. assisted pt back to her room . ambulated from w/c to chair using fWW SBA. positioned pt on the chair. call light and table placed within reach. Gait Assessment Gait Gait Assistance Required: Standby Assistance,Contact Guard Assist Distance (Feet) 25 Able to Maintain Weight Bearing Status Yes During Gait Assistive Devices Assistive Device Gait Belt,Front Wheeled Walker Orthotic/Prosthetic Devices or Brace: No Gait Deviations General Gait Pattern Antalgic,Decreased Stride Length,Decreased Feet Clearance Factors Limiting Gait Function Factors Limiting Gait Function Decreased Activity Tolerance, Decreased Strength,Poor Balance,Poor Safety Awareness Stair Climbing Assessment Evaluation Level of Assist On Stairs Contact Guard Assistance Devices Stair Climbing Assistive Devices Tripod Cane/Hurry Cane,Left Railing Technique/Endurance Stair Climbing Direction Ascend and Descend Stair Climbing Technique Step to Step Number of Steps Climbed 3 M5 PT-IP Objective Assessments Start: 08/31/23 15:57 Freq: NEEDED Status: Active Protocol: Document 08/31/23 14:10 AB (Rec: 08/31/23 16:10 AB [id number]) Orientation Orientation/Cognition Level of Alertness Alert Language Function Ability Hard of Hearing Safety Awareness Decreased Safety Awareness Memory Description Short Term Impaired Gross Range of Motion Lower Extremity ROM Assessment Within Functional Limits Strength Lower Extremity Strength Hip 4-/5 Knee 4-/5 Muscle Tone Muscle Tone WNL Yes M6 PT-IP Treatment Start: 08/31/23 15:57 Freq: NEEDED Status: Active Protocol: Document 09/01/23 14:00 AB (Rec: 09/01/23 16:18 AB [id number]) Physical Therapy Treatment Education Education Provided Safety M7 PT-IP Assessment and Plan Start: 08/31/23 15:57 Freq: NEEDED Status: Active Protocol: Document 09/01/23 14:00 AB (Rec: 09/01/23 16:18 AB [id number]) PT Summary Assessment and Plan Summary Impairments Pain,ROM,Strength,Balance, Coordination,Sensation, Cognition,Bed Mobility, Transfers,Gait,Activity Tolerance Progress Towards Goals Slow Progress due to Activity Tolerance,Slow Progress - Other Assessment Summary pt requiring SBA to CGA with mobility using FWW and plans to go home with spouse to assist her. pt may go home when medically stable. Goals Bed Mobility Goal Independent Transfer Goal Independent,Front Wheeled Walker Gait Goal Independent,Front Wheel Walker Gait Distance 200 Other Goals improve transfers and ambulation using LRAD ~ 250 ft mod I up/down 3 steps hurrycane/post or GAS DISPATCHER CGA Days to Meet Goals 10 Frequency of Treatment Frequency Of Treatment Once a Day Treatment Plan Physical Therapy Treatment Plan Bed Mobility Training,Transfer Training,Gait Training, Therapeutic Exercise,Balance Retraining,Discharge Planning, Hot or Cold Pack,Neuromuscular Re-ed,Coordination Retraining Recommendations To Nursing Amount of Assist Needed 1 Person Assist Discharge Recommendations PT Discharge Recommendations Home with 18/01 Assist Available,Home Health Equipment Needed for Home Before FWW Discharge Transportation Needs at Discharge Private Vehicle
--- NOTE | 2023-09-01 15:14 | OT.IP.TRT ---
Current Diagnoses Sepsis, unspecified organism (08/28/23) Occupational Therapy Treatment Note M2 OT-IP Current Condition Start: 08/31/23 16:46 Freq: Status: Active Protocol: Document 08/31/23 16:46 [facility] (Rec: 08/31/23 17:03 [facility] [id number]) Occupational Therapy Current Condition Current Condition Evaluation Date 08/31/23 Treatment Diagnosis Sepsis with acute respiratory failure with hypoxia, PNA Diagnosis Onset Date 08/28/23 M3 OT- IP Subjective and Pain Start: 08/31/23 16:46 Freq: Status: Active Protocol: Document 08/31/23 16:46 [facility] (Rec: 08/31/23 17:03 [facility] [id number]) OT- Subjective Occupational Therapy Visit Type Type Initial Evaluation Visit Start Time 14:45 Visit Stop Time 1514 Occupational Therapy Visit Comments Patient Comments Pt agreed to get up. Patient/Caregiver Goals To go home. OT Pain Assessment Pain When Pain Assessed At Rest Pain Present Pain Present Denied Pain M4 OT- IP ADL's Start: 08/31/23 16:46 Freq: Status: Active Protocol: Document 09/01/23 15:33 [facility] (Rec: 09/01/23 16:01 [facility] [id number]) OT [id number] General Evaluation Self-Feeding Ability Independent OT ADL-Grooming Comments OT Grooming Comments Pt states did earlier. OT ADL-Oral Care Comments Oral Care Comments Pt states did earlier. OT ADL-Dressing Comments OT Dressing Comments Reiterated pt to get LB dressing equipment. Pt states was not able to find it on [employer] and did not turn the page on the equipment list to look at places in [place] to get equipment. M5 OT- IP IADL's Start: 08/31/23 16:46 Freq: Status: Active Protocol: Document 08/31/23 16:46 [facility] (Rec: 08/31/23 17:03 [facility] [id number]) OT-Instrumental Activities of Daily Living Deficits IADL Deficits Identified Deficits Home Safety Awareness Awareness of Need for Assistance at Home Good Awareness Ability to Problem Solve Emergency Able to Problem Solve Situations Home Safety Comments Pt's able to assist her as needed. Medication Management Medication Management No Deficits Identified Money Management Money Management No Deficits Identified Meal Preparation Meal Preparation Comments Pt will benefit from assist due to decreased activity tolerance. Stock Chaser Stock Chaser Comments Pt will benefit from asisst due to decreased activity tolerance. M6 OT- IP Functional Cognition Start: 08/31/23 16:46 Freq: Status: Active Protocol: Document 09/01/23 15:33 [facility] (Rec: 09/01/23 16:01 [facility] [id number]) Cognitive Factors Limiting Selfcare Function Cognitive Tests SLUMS intact Cognitive Comments Cognitive Assessment Comments Pt not remembering information from yesterday and therefore did a cognitive assessment. Pt intact and scored . M7 OT- IP Mobility and Balance Start: 08/31/23 16:46 Freq: Status: Active Protocol: Document 09/01/23 15:33 [facility] (Rec: 09/01/23 16:01 [facility] [id number]) OT-Transfer Assessment Sit to and From Stand Sit to and from Stand Standby Assistance Comments Mobility Comments Increased time and SBA to come to stand to the FWW. M8 OT- IP Objective Assessments Start: 08/31/23 16:46 Freq: Status: Active Protocol: Document 08/31/23 16:46 [facility] (Rec: 08/31/23 17:03 [facility] [id number]) OT Gross Range of Motion Upper Extremity Range of Motion Assessment Within Functional Limits OT Strength Upper Extremity Strength Assessment Within Functional Limits OT- Coordination Assessment Upper Extremity Finger to Nose Test Within Functional Limits M9 OT- IP Assessment and Plan Start: 08/31/23 16:46 Freq: Status: Active Protocol: Document 09/01/23 15:33 [facility] (Rec: 09/01/23 16:01 [facility] [id number]) OT Summary Assessment and Plan Potential Rehabilitation Potential Good Analytic Complexity at Evaluation Moderate Summary OT Impairments Balance,Functional Mobility, Grooming,Dressing,Toileting, Bathing,Toilet Transfers, Shower Transfers,Activity Tolerance Progress Towards Goals Progressing Toward Goals Assessment Summary Pt now off O2 and still needing FWW to get around with and decided to get one from the hospital and order was obtained. Still encouraged pt to get LB dressing equipment. Pt was forgetful of what she was told form O2 yesterday and therefore did a SLUMS today and pt intact . Pt to go home with her when medically stable. Goals Grooming Goal Independent Dressing Goal Independent,Pattern Chain Builder,Sock Aid Toileting Goal Independent Bathing Goal Independent Toilet Transfer Goal Independent Shower Transfer Goal Independent Days to Meet Goals 5 Frequency of Treatment Frequency Of Treatment Once a Day Treatment Plan OT Treatment Plan ADL Training,Functional Mobility,Patient/Family Education,Discharge Planning Discharge Recommendations OT Discharge Recommendations Home with Assistance,Home Health,Outpatient PT Other Discharge Recommendations Pending progress pt to have home health initially and [facility] Needs at Discharge Private Vehicle
--- NOTE | 2023-09-01 15:52 | PM.DS.1 ---
History of Present Illness History of Present Illness Chief complaint: flu like symptoms Narrative: Ms. Nelson is a 72F with PMH afib, hypertension, chronic afib with acute heart failure with EF 30-35% s/p cardioversion, recent GI bleed in setting of NSAID use with esophageal stricture who presented with cough, weakness, shortness of breath for the past week. Cough has been nonproductive, with subjective chills. She does occasionally have food get stuck, unchanged recently due to her stricture. Denies rhinorrhea, sinus congestion. She has stable 2-3 pillow orthopnea. Does not use O2 at home. In the emergency room, patient was mildly hypoxic to mid 80s on room air. Remainder of her vitals were unremarkable. Laboratory evaluation showed a leukocytosis with WBC of 17, elevated creatinine from her baseline at 1.92, negative COVID, flu, and RSV panel. Chest x-ray shows possible multifocal pneumonia. Discharge Providers Provider Date of admission: 08/28/23 17:52 Discharge Date: 09/01/23 Primary care physician: Stu Carrion DO Consults: 08/31/23 09:47 Consult to Occupational Therapy Evaluate & Treat Comment: Physician Instructions: Evaluate and treat Consult to Physical Therapy Evaluate & Treat Comment: Physician Instructions: Evaluate and Treat 09/01/23 14:45 Consult to Physical Therapy Evaluate & Treat Comment: Physician Instructions: FWW for home use Discharge provider: Kyrie Salinas DO Summary Hospital Course Discharge Diagnosis: 1. Sepsis with acute respiratory failure with hypoxia and KARIN, secondary to bilateral bacterial pneumonia, present on admission - SOFA score of 2. - Levofloxacin given in the emergency room, change to ceftriaxone and azithromycin for CAP coverage. Patient reports she cannot recall penicillin allergy, may have had skin redness possibly. Discussed with patient and she was agreeable to ceftriaxone. No issues so far. - follow up cultures drawn, no growth so far - wean from O2 as able, goal O2 89-96% while on supplemental therapy. - RT eval and treat, started steroids for possible COPD exacerbation given ER provider concern for wheezing, differential includes volume overload from known heart failure as well. Will trial some furosemide today with proBNP 4040 on admit for slight diuresis. - additional consideration may be amiodarone lung toxicity but felt to be much less likely. Consider CT imaging if no improvement given lung involvement on CXR. - CT chest on 08/31 showed possible drug eruption vs pneumonia - spoke with Dr. Nain wakefield who will recommended continuing steroids and abx and he will see her in clinic on 09/05 for follow-up, referral faxed 2. Chronic atrial fibrillation - continue home amiodarone and beta kenrick - monitor with tele as does have history of difficult to control RVR requiring cardioversion. 3. KARIN on CKD stage III - suspect in setting of sepsis. Will avoid continuous fluids at this time due to concern above for volume overload. - Cr 2, baseline 1.3 - gentle IVF 4. Possible acute on chronic HFrEF - previous EF 30-35% in setting of afib with RVR. - possible acute component as well but more likely pneumonia. - consider TTE but unlikely to change management administrator at this time. 4. HTN - continue home medications 5. Depression, chronic - continue escitalopram 6. COPD with exacerbation - continue prednisone 40mg daily Hospital Course: Admitted for acute hypoxic resp failure 2/2 COPD exacerbation vs PNA. Improved slowly with IV abx and prednisone. Concern for possible amiodarone toxicity, so obtained CT chest which showed drug eruption vs pneumonia. Spoke with ashu who recommended continuing steroids and abx and they will see in clinic. Able to wean off O2. Discharged on po prednisone, cefdinir, lokelma due to mildly high potassium, and a new script for nebulizer machine/duonebs. Will see pulsaira next week on 09/05. Exam Vital Signs (past 8 hours): - 09/01/23 08:00 09/01/23 09:02 Temperature 98 F Pulse Rate 55 L Respiratory Rate 15 Blood Pressure 122/60 122/60 Pulse Oximetry 97 Oxygen Flow Rate 1 Fraction of Inspired Oxygen 34 SaO2/FiO2 Ratio 279 Oxygen Delivery Method Room Air Oxygen Flow Rate 1 Narrative Exam Narrative: GEN: no acute distress CV: RRR no m/r/g PULM: expiratory wheezes present bilaterally have improved ABD: soft, nontender, nondistended, no organomegaly EXT: warm and well perfused 1+ pitting edema NEURO: awake, alert, oriented, no focal deficits Objective Labs 09/01/23 05:18 09/01/23 12:53 Labs: Laboratory Results - last 24 hr 09/01/23 09/01/23 05:18 12:53 WBC 16.8 H RBC 4.23 Hgb 11.5 L Hct 35.5 L MCV 83.9 MCH 27.3 MCHC 32.5 RDW 15.5 H Plt Count 433 H Neut % (Auto) 90.7 H Lymph % (Auto) 5.4 L Gibson % (Auto) 3.7 Eos % (Auto) 0.0 L Baso % (Auto) 0.2 Neut # (Auto) 33933 H Lymph # (Auto) 900 L Gibson # (Auto) 600 Eos # (Auto) 0 Baso # (Auto) 0 Sodium 136 L 133 L Potassium 5.3 H 5.3 H Chloride 106 105 Carbon Dioxide 27 22 BUN 46 H 47 H Creatinine 1.79 H 1.59 H Estimated GFR 30 L 34 L BUN/Creatinine Ratio 25.7 H 29.6 H Glucose 121 H 119 H Calcium 9.3 9.5 Magnesium 2.2 PFSH Medical History Asthma (~1999) Allergies Restless leg syndrome (~2004) Fractures Mumps Measles Chicken pox History of recurrent ear infection Hearing loss (~1999) History of urinary incontinence (~2007) GERD (gastroesophageal reflux disease) Anemia Atrial fibrillation with RVR (~2019) Chronic kidney disease Congestive heart failure Leg cramps Hypertension GI bleed (~2022) Osteoporosis (~2002) Systolic heart failure Chronic atrial fibrillation Surgical History Anesthesia History of bilateral knee replacement History of bilateral hip replacements No pertinent past surgical history Family History Father History of heart disease History of kidney disease Mother Cancer Social History household members: spouse Smoking Status: Never smoker alcohol intake: current Discharge Plan Discharge Plan Patient Disposition: Home Provider Discharge Comment: I have put you on antibiotics and steroids for your pneumonia and COPD. Please f/up with pulmonology on 09/05. I've also sent a nebulizer machine with medication. Your potassium was a little high, so finish off a couple days of lokelma which reduces potassium. Discharge orders & Medications Prescriptions: New Lokelma 10 gram Powder In Packet 10 g PO TID 2 Days Qty: 11 0RF prednisone 20 mg Tablet 40 mg PO DAILY 5 Days Qty: 10 0RF Rx Instructions: start on 09/01 ipratropium-albuterol 0.5 mg-3 mg(2.5 mg base)/3 mL Solution For Nebulization 3 ml inhalation Q6H PRN (Reason: shortness of breath or wheezing) Qty: 90 0RF (DME) nebulizer and compressor Device See Rx Instructions .Route Qty: 1 0RF Rx Instructions: As directed cefdinir 300 mg capsule 300 mg PO BID 5 Days Qty: 10 0RF Rx Instructions: start on 09/01 Continued amiodarone 200 mg tablet 200 mg PO DAILY Qty: 90 3RF (DME) Disabled Parking Permint See Rx Instructions .ROUTE .MEDSUPPLY Qty: 1 0RF Rx Instructions: I find this patient to be medically disabled and qualified for Disabled Parking as indicated and signed on the Accompanying Disabled Parking Application for individuals. pramipexole 0.125 mg tablet 0.125 mg PO ONCE PM Qty: 30 1RF pantoprazole 40 mg tablet,delayed release (DR/EC) 40 mg PO BID 30 Days Qty: 60 2RF metoprolol succinate 50 mg tablet extended release 24 hr 50 mg PO BID fluticasone propion-salmeterol [Advair Diskus] 100-50 mcg/dose blister with device 1 ea inhalation BID albuterol sulfate 90 mcg/actuation HFA aerosol inhaler 2 puff INHALATION Q4H PRN (Reason: Shortness Of Breath Or Wheezing) escitalopram oxalate 5 mg tablet 5 mg PO DAILY apixaban 5 mg Tablet 5 mg PO BID nifedipine 60 mg tablet extended release 24hr 60 mg PO QPM Discontinued spironolactone 25 mg tablet 25 mg PO DAILY Follow up/Referrals: Marina Gillette MD [Physician] - 09/06/23 Stu Carrion DO [Primary Care Provider] - 09/07/23 12:00 pm (appt:09/06 @ 1200 (noon) with Dr Carrion please arrive 15 min prior to scheduled appointment time ) Other Ambulatory Orders: Referral to: (Schedule) Timeframe: [id number] Location: Determined by Patient Ordered By: Kyrie Salinas Visit Report/Discharge Packet Instructions: DI for Heart Failure, DI for Chronic Obstructive Pulmonary Disease, Albuterol and Ipratropium Oral Inhalation, Prednisone, Cefdinir, Sodium Zirconium Cyclosilicate Stand Alone Forms: Congestive Heart Failure, Patient Portal/API, Stroke Signs & Symptoms Discharge Data Primary Care Provider: Stu Carrion
--- NOTE | 2023-09-01 16:55 | PC.NURSE ---
Pt is dressed and ready for discharge home with Spouse IV has been removed. Went over d/c instructions with Pt and Spouse-discussed d/c meds, time of last dose, time for next dose, reviewed stroke education, CHF guidelines sheet, and follow up with Pulmonology and Cardiology as scheduled. Pt denied further questions and will be taken out via w/c by CONTRACT ATTORNEY to POV with Spouse and all belongings as soon as they have finished her dinner.
[2023-09-01] MEDS: NIFEdipine 30 MG TAB ER 60 MG PO (17:05)
== END 2023-09-01 17:12 | disposition home health service (06) | DRG 871 ==
LOC: ED 15:27 → AC 17:53
PROVIDERS: Student in an Organized Health Care Education/Training Program; Admitting Provider Internal Medicine; Emergency Provider Emergency Medicine; PCP Family Medicine; Referring Provider Emergency Medicine; Visit Provider Internal Medicine
DX: A41.9 Sepsis, unspecified organism (principal); I50.23 Acute on chronic systolic (congestive) heart failure; J18.9 Pneumonia, unspecified organism; J96.01 Acute respiratory failure with hypoxia; N17.9 Acute kidney failure, unspecified; I48.20 Chronic atrial fibrillation, unspecified; I13.0 Hypertensive heart and chronic kidney disease with heart failure and stage 1 through stage 4 chronic kidney disease, or unspecified chronic kidney disease; J44.0 Chronic obstructive pulmonary disease with (acute) lower respiratory infection; J44.1 Chronic obstructive pulmonary disease with (acute) exacerbation; R65.20 Severe sepsis without septic shock; N18.30 Chronic kidney disease, stage 3 unspecified; F32.A Depression, unspecified; K21.9 Gastro-esophageal reflux disease without esophagitis; T46.2X5A Adverse effect of other antidysrhythmic drugs, initial encounter; Z88.0 Allergy status to penicillin; Z79.01 Long term (current) use of anticoagulants
CPT/HCPCS: 0241U; 36415; 71046; 71250; 80048; 80053; 82805; 83735; 83880; 84484; 85025; 87040; 93005; 94640; 94760; 96374; 97116; 97129; 97162; 97166; 97530; 97535; 99285; J0696; J1940; J1956; J2919; J7613

== ENCOUNTER → 2023-09-07 10:57 | Outpatient (CLI) | payer MEDICARE, OTHER, SELFPAY ==
[2023-08-28 18:31] VITALS: BMI 34.6
[2023-09-07 12:23] LABS: Add Manual Diff / Slide Review NO; Basophils Absolute Auto 100 /uL (0-100); Basophils Percent Auto 0.5 % (0-2); Eosinophils Absolute Auto 0 /uL (0-450); Eosinophils Percent Auto 0.2 % (2-4); Hematocrit 39.9 % (36-46); Lymphocytes Absolute Auto 1700 /uL (1100-4500); Lymphocytes Percent Auto 9.4 % (25-40); Mean Corpuscular HGB Conc 32.6 % (30-36); Mean Corpuscular Volume 82.9 fL (80-100); Monocytes Absolute Auto 1200 /uL (0-900); Monocytes Percent Auto 6.9 % (3-14); Neutrophils Absolute Auto 14800 /uL (1500-7000); Platelet Count 487 X10^3/uL (150-400); Red Blood Cell Count 4.81 X10^6/uL (4.0-5.2); Red Cell Distribution Width 15.9 % (11.6-14.8); White Blood Cell Count 17.8 X10^3/uL (4.5-11.0)
[2023-09-07 12:58] LABS: HEMOLYSIS 15 (0-50); Iron 115 ug/dL (37-170)
[2023-09-07 13:01] LABS: Alanine Aminotransferase 21 IU/L (<35); Albumin 3.3 g/dL (3.5-5.0); Alkaline Phosphatase 76 U/L (38-126); Aspartate Aminotransferase 23 IU/L (14-36); BUN Creatinine Ratio 22.7 (6-22); Bilirubin Total 0.6 mg/dL (0.2-1.3); Blood Urea Nitrogen 34 mg/dL (7-17); Calcium 9.5 mg/dL (8.4-10.2); Carbon Dioxide 24 mmol/L (22-32); Chloride 105 mmol/L (98-107); Estimated Glomerular Filt Rate 36 mL/min (>60); Globulin 3.3 g/dL (1.7-4.1); Glucose 71 mg/dL (80-110); HEMOLYSIS < 15 (0-50); Potassium 4.1 mmol/L (3.4-5.1); Sodium 137 mmol/L (137-145); Total Protein 6.6 g/dL (6.3-8.2)
[2023-09-07 13:09] LABS: Percent Iron Saturation 48 % (15-50); Total Iron Binding Capacity 239 ug/dL (265-497); Transferrin 200 mg/dL (206-381)
[2023-09-07 13:52] LABS: Vitamin B12 > 1000 pg/mL (239-931)
== END ==
LOC: LAB 10:59
PROVIDERS: PCP Family Medicine; Referring Provider Family Medicine; Visit Provider Family Medicine
DX: D64.9 Anemia, unspecified (principal); I48.91 Unspecified atrial fibrillation; J44.9 Chronic obstructive pulmonary disease, unspecified; N18.9 Chronic kidney disease, unspecified
CPT/HCPCS: 36415; 80053; 82607; 83540; 83550; 85025

== ENCOUNTER → 2023-11-10 09:58 | Outpatient (CLI) | payer MEDICARE, OTHER, SELFPAY ==
[2023-08-28 18:31] VITALS: BMI 34.6
[2023-11-10 10:51] LABS: Add Manual Diff / Slide Review NO; Basophils Absolute Auto 100 /uL (0-100); Basophils Percent Auto 1.2 % (0-2); Eosinophils Absolute Auto 300 /uL (0-450); Eosinophils Percent Auto 4.7 % (2-4); Hematocrit 38.2 % (36-46); Hemoglobin 12.5 g/dL (12.0-16.0); Lymphocytes Absolute Auto 1300 /uL (1100-4500); Lymphocytes Percent Auto 17.9 % (25-40); Mean Corpuscular HGB Conc 32.7 % (30-36); Mean Corpuscular Hemoglobin 28.8 PG (26-34); Mean Corpuscular Volume 88.3 fL (80-100); Monocytes Absolute Auto 600 /uL (0-900); Monocytes Percent Auto 8.6 % (3-14); Neutrophils Absolute Auto 4800 /uL (1500-7000); Neutrophils Percent Auto 67.6 % (50-75); Platelet Count 239 X10^3/uL (150-400); Red Blood Cell Count 4.33 X10^6/uL (4.0-5.2); Red Cell Distribution Width 19.4 % (11.6-14.8); White Blood Cell Count 7.1 X10^3/uL (4.5-11.0)
[2023-11-10 11:21] LABS: Alanine Aminotransferase 13 IU/L (<35); Albumin 4.2 g/dL (3.5-5.0); Albumin Globulin Ratio 1.4 (1.0-2.8); Alkaline Phosphatase 70 U/L (38-126); Aspartate Aminotransferase 22 IU/L (14-36); BUN Creatinine Ratio 15.5 (6-22); Bilirubin Total 0.6 mg/dL (0.2-1.3); Blood Urea Nitrogen 18 mg/dL (7-17); Calcium 9.9 mg/dL (8.4-10.2); Carbon Dioxide 25 mmol/L (22-32); Chloride 107 mmol/L (98-107); Estimated Glomerular Filt Rate 49 mL/min (>60); Globulin 2.9 g/dL (1.7-4.1); Glucose 92 mg/dL (80-110); HEMOLYSIS < 15 (0-50); Sodium 138 mmol/L (137-145); Total Protein 7.1 g/dL (6.3-8.2)
[2023-11-10 12:06] LABS: Vitamin B12 > 1000 pg/mL (239-931)
== END ==
PROVIDERS: PCP Family Medicine; Referring Provider Family Medicine; Visit Provider Family Medicine
DX: N18.32 Chronic kidney disease, stage 3b (principal); D72.821 Monocytosis (symptomatic); I50.9 Heart failure, unspecified
CPT/HCPCS: 36415; 80053; 82607; 85025

== ENCOUNTER → 2023-12-09 11:13 | Outpatient (CLI) | payer MEDICARE, OTHER, SELFPAY ==
[2023-08-28 18:31] VITALS: BMI 34.6
== END ==
LOC: RESP 11:13
PROVIDERS: PCP Family Medicine; Referring Provider Internal Medicine; Visit Provider Internal Medicine
DX: R06.02 Shortness of breath (principal); J18.9 Pneumonia, unspecified organism; J45.909 Unspecified asthma, uncomplicated; R94.2 Abnormal results of pulmonary function studies
CPT/HCPCS: 94060; 94726; 94729

== ENCOUNTER 2024-03-05 11:36 | Emergency (ER) | payer MEDICARE, OTHER, SELFPAY ==
[2023-08-28 18:31] VITALS: BMI 34.6
[2024-03-05 11:43] VITALS: BP 157/72; PULSE 54; RESP 16; TEMP 36.3; O2SAT 99; BMI 37.4
--- NOTE | 2024-03-05 11:49 | DI.CT.S_ITS ---
PROCEDURE: CT CERVICAL SPINE WO CON INDICATIONS: fall on Eliquis, hit head TECHNIQUE: Noncontrast 3 mm thick sections acquired from the skull base to the T4 level. Sagittal and coronal reformats were then constructed. For radiation dose reduction, the following was used: automated exposure control, adjustment of mA and/or kV according to patient size. COMPARISON: None. FINDINGS: Image quality: Excellent. Bones: No acute fracture. Minimal grade 1 anterolisthesis of C2 on C3 and C3 on C4 is present. Degenerative changes of C5-C7, as well as the upper thoracic spine, are present. Soft tissues: Prevertebral soft tissues are normal in thickness. No paravertebral hematomas. No apical pneumothoraces. IMPRESSION: Degenerative disc disease without acute cervical osseous abnormality. Dictated by: Veronica Hunter M.D. on 03/05/2024 at 11:27 Approved by: Veronica Hunter M.D. on 03/05/2024 at 11:29
--- NOTE | 2024-03-05 11:49 | DI.CT.S_ITS ---
PROCEDURE: CT HEAD/BRAIN WO CON INDICATIONS: fall on Eliquis, hit head TECHNIQUE: Noncontrast 4.5 mm thick angled axial sections acquired from the foramen magnum to the vertex, with coronal and sagittal reformats. For radiation dose reduction, the following was used: automated exposure control, adjustment of mA and/or kV according to patient size. COMPARISON: None. FINDINGS: Image quality: Diagnostic. CSF spaces: Basal cisterns are patent. No extra-axial fluid collections. The ventricles are symmetric in size and shape. Brain: No intracranial bleeds or masses. There is cerebral volume loss for age, with resultant ventricular and sulcal prominence. There are periventricular and deep white matter chronic small vessel ischemic changes. Skull and face: Calvarium and visualized facial bones appear intact, without suspicious lesions. Sinuses: Visualized sinuses and mastoids are clear. IMPRESSION: No acute intracranial pathology. Dictated by: Veronica Hunter M.D. on 03/05/2024 at 11:25 Approved by: Veronica Hunter M.D. on 03/05/2024 at 11:26
--- NOTE | 2024-03-05 13:18 | ED_ITS ---
HPI - Fall <Boyd BustamanteMARIAH - Last Filed: 03/05/24 13:43> General Chief Complaint: Trauma Stated Complaint: Fall at [facility], bumped head on blood thinners Time Seen by Provider: 03/05/24 13:18 Source: patient and other Mode of arrival: Wheelchair History of Present Illness HPI Narrative: 73-year-old female, on Eliquis for AFib, was brought to the emergency department after falling at the walk-in clinic earlier today patient was going to the walk- in clinic to be evaluated for a rash that started on her hands and is radiating up into arms since this a.m.. Patient did use latex gloves yesterday while cooking food, but is unsure if she ever has an issues with latex allergies. Patient denies difficulty breathing or sensation that her throat is closing. From the walk-in clinic provider: Patient took fall in hallway while ambulating with cane to room. She stumbled sideways and fell to her right, bumping head on wall, then fell to floor. Patient did not lose consciousness. Patient assisted from ground to wheelchair by this LN and provider. Patient on Eliquis and reports of lightheadedness after fall. Advised patient transfer to ED, to which she is agreeable. Related Data Home Medications Medication Instructions Recorded Confirmed fluticasone 100 mcg-salmeterol 50 1 ea inhalation BID 01/26/23 03/05/24 mcg/dose blistr powdr for inhalation (Advair Diskus) metoprolol succinate 50 mg 50 mg PO BID 01/26/23 03/05/24 tablet,extended release 24 hr apixaban 5 mg tablet 5 mg PO BID 08/28/23 03/05/24 nifedipine 60 mg tablet,extended 60 mg PO QPM 08/28/23 03/05/24 release 24 hr Previous Rx's Medication Instructions Recorded amiodarone 200 mg tablet 200 mg PO DAILY #90 tabs 04/29/23 Disabled Parking Permint #1 ea 08/03/23 ipratropium 0.5 mg-albuterol 3 mg 3 ml inhalation Q6H PRN shortness 09/01/23 (2.5 mg base)/3 mL nebulization of breath or wheezing #90 mL soln nebulizer and compressor #1 ea 09/01/23 pantoprazole 40 mg tablet,delayed 40 mg PO BID 30 days #90 tabs 10/27/23 release escitalopram oxalate 5 mg tablet 5 mg PO DAILY #90 tabs 12/27/23 albuterol sulfate 90 mcg/actuation 2 puff PO Q4H PRN shortness of 01/11/24 aerosol inhaler breath or wheezing #8.5 grams pramipexole 0.125 mg tablet 0.125 mg PO ONCE PM #30 tabs 01/20/24 prednisone 20 mg tablet 40 mg (2 x 20 mg) PO DAILY 5 days 03/05/24 #10 tabs Allergies Allergy/AdvReac Type Severity Reaction Status Date / Time Penicillins AdvReac Intermediate Hives Verified 03/05/24 11:47 Sulfa (Sulfonamide AdvReac Mild thrush Verified 03/05/24 11:47 Antibiotics) latex AdvReac Rash Verified 03/05/24 11:48 Review of Systems <MARIAH Talbot - Last Filed: 03/05/24 13:43> Review of Systems Narrative: Narrative: See HPI. GENERAL: Denies chills, fatigue, fever, sweats. HEENT: Denies sinus pain, ear pain, sore throat, difficulty swallowing, dizziness. RESPIRATORY: Denies dyspnea, cough, wheezing, sputum. CARDIOVASCULAR: Denies chest pain, palpitations, edema. GASTROINTESTINAL: Denies nausea, vomiting, abdominal pain, diarrhea, constipation. : Denies dysuria, frequency, incontinence, hematuria, urinary retention, flank pain. MSK: Denies weakness, joint pain, or bony pain. SKIN: Denies skin lesions. Endorses pruritic rash on bilateral arms. NEUROLOGIC: Denies current weakness, dizziness, headache, numbness, confusion. PSYCHIATRIC: No concerning psychosocial issues. Patient History <MARIAH Talbot - Last Filed: 03/05/24 13:43> Medical History Anemia Leukocytosis Hyperkalemia Asthma (~1999) Allergies Restless leg syndrome (~2004) Fractures Mumps Measles Chicken pox History of recurrent ear infection Hearing loss (~1999) History of urinary incontinence (~2007) GERD (gastroesophageal reflux disease) Atrial fibrillation with RVR (~2019) Chronic kidney disease Congestive heart failure Leg cramps Hypertension GI bleed (~2022) Osteoporosis (~2002) Systolic heart failure Chronic atrial fibrillation Surgical History Anesthesia History of bilateral knee replacement History of bilateral hip replacements No pertinent past surgical history Family History Father History of heart disease History of kidney disease Mother Cancer Social History household members: spouse Smoking Status: Never smoker alcohol intake: current Smoking Status: Never smoker alcohol intake frequency: holidays/special occasions only Substance Use Type: does not use Exam <MARIAH Talbot - Last Filed: 03/05/24 13:43> Narrative Exam Narrative: Exam Narrative: GENERAL: This is a well-nourished, well-developed patient, in no acute distress. HEAD: Atraumatic. Normocephalic. EYES: Pupils equal round and reactive. Extraocular motions intact. No scleral icterus, injection or drainage. ENT: Nose without bleeding, purulent drainage. Throat without erythema, tonsillar hypertrophy or exudate. Uvula midline. Airway patent. TMs and canals clear. No sinus tenderness. No Patel signs or raccoon eyes. NECK: Trachea midline. No JVD or lymphadenopathy. Nontender. No C-spine tenderness. CARDIOVASCULAR: Regular rate and rhythm without murmurs, peripheral pulses intact, cap refill <2 sec. RESPIRATORY: Breath sounds equal and clear bilaterally. No wheezes, rales, or rhonchi. No cough. No increased respiratory effort. No accessory muscle use. GASTROINTESTINAL: Abdomen soft, non-tender, nondistended without guarding or rebound. No suprapubic pain. MSK: Moves all extremities. Normal range of motion, no clubbing or edema. Neurovascularly intact. NEURO: A&O x 3. SKIN: Warm, dry, no lesions noted. Erythematous rash starting on bilateral hands radiating up towards arms consistent with an allergic reaction. Initial Vital Signs Initial Vital Signs: Vital Signs Temperature 97.4 F L 03/05/24 11:43 Pulse Rate 54 L 03/05/24 11:43 Respiratory Rate 16 03/05/24 11:43 Blood Pressure 157/72 H 03/05/24 11:43 Pulse Oximetry 99 03/05/24 11:43 Oxygen Delivery Method Room Air 03/05/24 11:43 Reviewed <Reese Morris MD - Last Filed: 03/05/24 21:42> Initial Vital Signs Initial Vital Signs: Vital Signs Temperature 97.4 F L 03/05/24 11:43 Pulse Rate 54 L 03/05/24 11:43 Respiratory Rate 16 03/05/24 11:43 Blood Pressure 157/72 H 03/05/24 11:43 Pulse Oximetry 99 03/05/24 11:43 Oxygen Delivery Method Room Air 03/05/24 11:43 Course <MARIAH Talbot - Last Filed: 03/05/24 13:43> Orders Ordered: Discontinued Medications Prednisone (Prednisone 20 Mg Tablet) 60 mg PO NOW ONE Stop: 03/05/24 13:31 Last Admin: 03/05/24 13:35 Dose: 60 mg Documented By: ZOE Vital Signs Vital signs: Vital Signs - 8 hr 03/05/24 13:48 Pulse Rate 61 Respiratory Rate 18 Blood Pressure 148/84 H Pulse Oximetry 97 Oxygen Delivery Method Room Air <Reese Morris MD - Last Filed: 03/05/24 21:42> Orders Ordered: Discontinued Medications Prednisone (Prednisone 20 Mg Tablet) 60 mg PO NOW ONE Stop: 03/05/24 13:31 Last Admin: 03/05/24 13:35 Dose: 60 mg Documented By: ZOE Vital Signs Vital signs: Vital Signs - 8 hr 03/05/24 13:48 Pulse Rate 61 Respiratory Rate 18 Blood Pressure 148/84 H Pulse Oximetry 97 Oxygen Delivery Method Room Air MDM - Fall <MARIAH Talbot - Last Filed: 03/05/24 13:43> Differential Diagnosis Differential diagnosis: Likely other (Head injury, allergic reaction) Imaging Data CT scan - head: Radiologist's Impression: [address] [address] [address] Scan Report Signed Patient: Suzi Nelson MR#: [id number] : 1950 Acct:[id number] Age/Sex: 73 / F Date of Service: 03/05/24 Loc: ED Accession Number: [id number] Procedure: CT head/brain wo con Ordering Provider: Reese Morris MD PROCEDURE: CT HEAD/BRAIN WO CON INDICATIONS: fall on Eliquis, hit head TECHNIQUE: Noncontrast 4.5 mm thick angled axial sections acquired from the foramen magnum to the vertex, with coronal and sagittal reformats. For radiation dose reduction, the following was used: automated exposure control, adjustment of mA and/or kV according to patient size. COMPARISON: None. FINDINGS: Image quality: Diagnostic. CSF spaces: Basal cisterns are patent. No extra-axial fluid collections. The ventricles are symmetric in size and shape. Brain: No intracranial bleeds or masses. There is cerebral volume loss for age, with resultant ventricular and sulcal prominence. There are periventricular and deep white matter chronic small vessel ischemic changes. Skull and face: Calvarium and visualized facial bones appear intact, without suspicious lesions. Sinuses: Visualized sinuses and mastoids are clear. IMPRESSION: No acute intracranial pathology. Dictated by: Veronica Hunter M.D. on 03/05/2024 at 11:25 Approved by: Veronica Hunter M.D. on 03/05/2024 at 11:26 CT - cervical spine: Radiologist's Impression: [place] [address] CT Scan Report Signed Patient: Suzi Nelson MR#: [id number] : 1950 Acct:[id number] Age/Sex: 73 / F Date of Service: 03/05/24 Loc: ED Accession Number: [id number] Procedure: CT cervical spine wo con Ordering Provider: Reese Morris MD PROCEDURE: CT CERVICAL SPINE WO CON INDICATIONS: fall on Eliquis, hit head TECHNIQUE: Noncontrast 3 mm thick sections acquired from the skull base to the T4 level. Sagittal and coronal reformats were then constructed. For radiation dose reduction, the following was used: automated exposure control, adjustment of mA and/or kV according to patient size. COMPARISON: None. FINDINGS: Image quality: Excellent. Bones: No acute fracture. Minimal grade 1 anterolisthesis of C2 on C3 and C3 on C4 is present. Degenerative changes of C5-C7, as well as the upper thoracic spine, are present. Soft tissues: Prevertebral soft tissues are normal in thickness. No paravertebral hematomas. No apical pneumothoraces. IMPRESSION: Degenerative disc disease without acute cervical osseous abnormality. Dictated by: Veronica Hunter M.D. on 03/05/2024 at 11:27 Approved by: Veronica Hunter M.D. on 03/05/2024 at 11:29 [facility] Narrative Medical decision making narrative: 73-year-old female that was brought to the emergency department after falling and hitting her head at the walk-in clinic, where she was wanting to be seen for a rash on bilateral arms. Assessment was encouraging and clinical findings were suggestive of a allergic reaction to possible latex gloves. CT scans head and cervical spine were both negative. Assessment was encouraging and no neuro deficits noted. Will treat with prednisone for the rash. Discussed plan of care and return precautions with patient and spouse. Strict instructions that if any point if she has worsening headache or blurry vision, difficulty breathing or sensation that her throat is closing to come to the emergency room immediately. Patient and spouse verbalized understanding and were agreeable with course of action. Discharge Plan Departure Patient Disposition: Home Clinical Impression: Rash Head injury Qualifiers: Encounter type: initial encounter Qualified Code(s): S09.90XA - Unspecified injury of head, initial encounter Instructions: DI for General Allergic Reactions, DI for Closed Head Injury Activity Restrictions/Additional Instructions: *You have been diagnosed with a closed-head injury and allergic reaction rash. The CT scans of your head and cervical spine were both negative and my assessment was encouraging. We will give you some prednisone that will help with your rash and the itching. You may have some mild lightheadedness as you fully recover, but worsening symptoms occur, that include increased dizziness, blurry vision, worsening headache, difficulty breathing or sensation that her throat is closing, get to the emergency room immediately. Otherwise, please fol low-up with your family doctor or walk-in clinic as needed. *What to do: *Please continue to take your regular medications as directed. [x ] New medication prescriptions sent to your pharmacy: [[facility]] [ ] New medication written as a paper prescription [ ] No new medications given *Please follow up with your primary care provider in 2-3 days, call for an appointment. Let them know you were seen in the Emergency Department and that we ask that you be seen in follow up. We will electronically transmit a record of today's note if your PCP is in our system *If you do not have a primary care provider please contact the [facility] Resource line at [phone]. They will ask some questions about your medical history and help get you set up with a doctor in the community. ? Return to ER if you should have any new, worsening or concerning symptoms, such as worsening pain, severe headache, confusion, chest pain, difficulty breathing, fever greater than 101 F, shaking chills, persistent vomiting to the point that you cannot drink fluids, or other new or worsening symptoms. Prescriptions: New prednisone 20 mg tablet 40 mg PO DAILY 5 Days Qty: 10 0RF No Action amiodarone 200 mg tablet 200 mg PO DAILY Qty: 90 3RF (DME) Disabled Parking Permint See Rx Instructions .ROUTE .MEDSUPPLY Qty: 1 0RF Rx Instructions: I find this patient to be medically disabled and qualified for Disabled Parking as indicated and signed on the Accompanying Disabled Parking Application for individuals. pantoprazole 40 mg tablet,delayed release (DR/EC) 40 mg PO BID 30 Days Qty: 90 3RF escitalopram oxalate 5 mg tablet 5 mg PO DAILY Qty: 90 1RF albuterol sulfate 90 mcg/actuation HFA aerosol inhaler 2 puff PO Q4H PRN (Reason: shortness of breath or wheezing) Qty: 8.5 11RF pramipexole 0.125 mg tablet 0.125 mg PO ONCE PM Qty: 30 1RF metoprolol succinate 50 mg tablet extended release 24 hr 50 mg PO BID fluticasone propion-salmeterol [Advair Diskus] 100-50 mcg/dose blister with device 1 ea inhalation BID apixaban 5 mg Tablet 5 mg PO BID nifedipine 60 mg tablet extended release 24hr 60 mg PO QPM ipratropium-albuterol 0.5 mg-3 mg(2.5 mg base)/3 mL Solution For Nebulization 3 ml inhalation Q6H PRN (Reason: shortness of breath or wheezing) Qty: 90 0RF (DME) nebulizer and compressor Device See Rx Instructions .Route Qty: 1 0RF Rx Instructions: As directed Referrals: Stu Carrion, [Primary Care Provider] - Stand Alone Forms: Patient Portal/API ED Sign-out <Reese Morris MD - Last Filed: 03/05/24 21:42> Cosign ED Attending Cosignature Attestation: I was immediately available in the department for consultation. This documentation has been reviewed and I agree with assessment and plan. Supervised by Reese Morris MD
[2024-03-05] MEDS: predniSONE 20 MG TABLET 60 MG PO (13:35)
[2024-03-05 13:48] VITALS: BP 148/84; PULSE 61; RESP 18; O2SAT 97
== END 2024-03-05 13:49 | disposition home or self-care (01) ==
PROVIDERS: Emergency Provider Registered Nurse; PCP Family Medicine
DX: S09.90XA Unspecified injury of head, initial encounter (principal); R42 Dizziness and giddiness; R21 Rash and other nonspecific skin eruption; W18.30XA Fall on same level, unspecified, initial encounter; Z79.01 Long term (current) use of anticoagulants
CPT/HCPCS: 70450; 72125; 99284

== ENCOUNTER 2024-05-11 11:41 | Emergency (ER) | payer MEDICARE, OTHER, SELFPAY ==
[2023-08-28 18:31] VITALS: BMI 34.6
[2024-05-11] VITALS (17 sets, daily range): BP systolic 130–170; BP diastolic 58–116; PULSE 59–128; RESP 12–31; TEMP 36.4; O2SAT 93–100; BMI 41.3
--- NOTE | 2024-05-11 11:56 | EKG_ITS ---
[facility] [address] [address] Test Date: 2024-05-11 Pat Name: Suzi Nelson Department: [facility] Room: Gender: Female Training Executive: NICOLA : 1950 Requested By: Order Number: [id number] Reading MD: Trey Santos MD Measurements Intervals [place] Rate: 130 P: LA: QRS: 32 QRSD: 94 T: -11 QT: 310 QTc: 456 Interpretive Statements Atrial fibrillation with rapid ventricular response Cannot rule out Inferior infarct , age undetermined Electronically Signed On 05-12-2024 11:39:27 PST by Trey Santos MD
--- NOTE | 2024-05-11 11:56 | DI.RAD.S_ITS ---
PROCEDURE: XR CHEST 1V INDICATIONS: Shortness of breath TECHNIQUE: One view of the chest was acquired. COMPARISON: [facility], CR, XR CHEST 2V, 08/28/2023, 15:45. [facility], CR, XR CHEST 2V, 12/21/2022, 18:05. [facility], CR, XR CHEST 1V, 11/14/2022, 7:53. FINDINGS: Surgical changes and devices: Stable upper left abdomen surgical clips. Lungs and pleura: Lungs are clear. Central pulmonary vascular prominence. No pleural effusions or pneumothorax. Mediastinum: Mediastinal contours appear normal. Heart is enlarged. Bones and chest wall: No suspicious bony lesions. Overlying soft tissues appear unremarkable. IMPRESSION: Cardiomegaly with central pulmonary vascular prominence concerning for mild CHF/fluid overload. Dictated by: Ange Mart MD, PhD on 05/11/2024 at 12:58 Approved by: Ange Mart MD, PhD on 05/11/2024 at 12:59
[2024-05-11 12:10] LABS: Add Manual Diff / Slide Review NO; Basophils Absolute Auto 0 /uL (0-100); Basophils Percent Auto 0.5 % (0-2); Eosinophils Absolute Auto 300 /uL (0-450); Eosinophils Percent Auto 3.7 % (2-4); Hematocrit 36.5 % (36-46); Lymphocytes Absolute Auto 700 /uL (1100-4500); Lymphocytes Percent Auto 7.2 % (25-40); Mean Corpuscular HGB Conc 32.8 % (30-36); Mean Corpuscular Hemoglobin 30.4 PG (26-34); Mean Corpuscular Volume 92.8 fL (80-100); Monocytes Absolute Auto 700 /uL (0-900); Monocytes Percent Auto 7.5 % (3-14); Neutrophils Absolute Auto 7700 /uL (1500-7000); Neutrophils Percent Auto 81.1 % (50-75); Platelet Count 274 X10^3/uL (150-400); Red Blood Cell Count 3.93 X10^6/uL (4.0-5.2); Red Cell Distribution Width 14.5 % (11.6-14.8); White Blood Cell Count 9.5 X10^3/uL (4.5-11.0)
[2024-05-11] MEDS: ALBUTEROL/IPRATROPIUM 3 ML AMPUL INH (12:12)
[2024-05-11 12:18] LABS: INR 1.6 (0.9-1.3)
--- NOTE | 2024-05-11 12:21 | ED.GENADULT ---
HPI - General Adult General Chief complaint: Shortness of Breath/Dyspnea Stated complaint: diff breathing, fluid retention Time Seen by Provider: 05/11/24 11:58 Source: patient Mode of arrival: Ambulatory Limitations: no limitations History of Present Illness HPI narrative: 73-year-old female. States she has been told that she has a history of asthma. Also told that she potentially has COPD. Does have a diagnosis of CHF. Also has a history of AFib. Is on anticoagulation. For the past week or longer has had progressive worsening shortness of breath and dyspnea on exertion and weight gain. States she feels like she was retaining fluids. She was not on Lasix. Does not feel like she was in AFib and most of the time she does feel the irregular heartbeat. Denies any fevers. Does have a cough. Has been taking all of her medications. Has a nebulizer at home which she has been taking with minimal improvement. Related Data Home Medications Medication Instructions Recorded Confirmed fluticasone 100 mcg-salmeterol 50 1 ea inhalation BID 01/26/23 03/05/24 mcg/dose blistr powdr for inhalation (Advair Diskus) metoprolol succinate 50 mg 50 mg PO BID 01/26/23 03/05/24 tablet,extended release 24 hr apixaban 5 mg tablet 5 mg PO BID 08/28/23 03/05/24 nifedipine 60 mg tablet,extended 60 mg PO QPM 08/28/23 03/05/24 release 24 hr Previous Rx's Medication Instructions Recorded amiodarone 200 mg tablet 200 mg PO DAILY #90 tabs 04/29/23 Disabled Parking Permint #1 ea 08/03/23 nebulizer and compressor #1 ea 09/01/23 pantoprazole 40 mg tablet,delayed 40 mg PO BID 30 days #90 tabs 10/27/23 release escitalopram oxalate 5 mg tablet 5 mg PO DAILY #90 tabs 12/27/23 albuterol sulfate 90 mcg/actuation 2 puff PO Q4H PRN shortness of 01/11/24 aerosol inhaler breath or wheezing #8.5 grams pramipexole 0.125 mg tablet 0.125 mg PO ONCE PM #30 tabs 01/20/24 ipratropium 0.5 mg-albuterol 3 mg 3 ml inhalation Q6H PRN shortness 05/05/24 (2.5 mg base)/3 mL nebulization of breath or wheezing #90 mL soln furosemide 20 mg tablet (Lasix) 20 mg PO DAILY 21 days #21 tabs 05/11/24 Allergies Allergy/AdvReac Type Severity Reaction Status Date / Time Penicillins AdvReac Intermediate Hives Verified 03/05/24 11:47 Sulfa (Sulfonamide AdvReac Mild thrush Verified 03/05/24 11:47 Antibiotics) latex AdvReac Rash Verified 03/05/24 11:48 Review of Systems Review of Systems ROS Unobtainable: All systems reviewed & are unremarkable except as noted in HPI and below Patient History Medical History Anemia Leukocytosis Hyperkalemia Asthma (~1999) Allergies Restless leg syndrome (~2004) Fractures Mumps Measles Chicken pox History of recurrent ear infection Hearing loss (~1999) History of urinary incontinence (~2007) GERD (gastroesophageal reflux disease) Atrial fibrillation with RVR (~2019) Chronic kidney disease Congestive heart failure Leg cramps Hypertension GI bleed (~2022) Osteoporosis (~2002) Systolic heart failure Chronic atrial fibrillation Surgical History Anesthesia History of bilateral knee replacement History of bilateral hip replacements No pertinent past surgical history Family History Father History of heart disease History of kidney disease Mother Cancer Social History household members: spouse Smoking Status: Never smoker alcohol intake: current Smoking Status: Never smoker alcohol intake frequency: holidays/special occasions only Substance Use Type: does not use Exam Initial Vital Signs Initial Vital Signs: Vital Signs Pulse Rate 128 H 05/11/24 11:53 Pulse Oximetry 96 05/11/24 11:53 Const General: cooperative and No ill appearing HENCO Head: normal to inspection and normocephalic Resp Effort & Inspection: normal respiratory effort Auscultation: clear to auscultation bilaterally Cardio Rate: tachycardic Rhythm: regular rhythm GI Inspection: normal to inspection Neuro General: patient alert and patient awake Extrem General: edema Course Orders Ordered: ED Orders 05/11/24 11:56 XR chest 1V Stat EKG-12 Lead Stat Measure peak expiratory flow ONCE RT Consult Eval and Treat NOW 05/11/24 12:00 Complete Blood Count AUTO DIFF Stat Comprehensive Metabolic Panel Stat Lactate (Lactic Acid) Stat NT-proBNP (BNP-Adult 18+) Stat Prothrombin Time INR Stat Troponin & CK Cardiac Panel Stat Discontinued Medications Albuterol (Albuterol 2.5 Mg/3 Ml Neb (Adult)) 2.5 mg INH NOW ONE Stop: 05/11/24 14:48 Last Admin: 05/11/24 14:53 Dose: 2.5 mg Documented By: ISAI Albuterol/Ipratropium (Albuterol/Ipratropium 3 Ml Ampul) 3 ml INH NOW ONE Stop: 05/11/24 12:05 Last Admin: 05/11/24 12:12 Dose: 3 ml Documented By: ALIX Furosemide 60 mg/ Sodium (Chloride) 56 mls @ 112 mls/hr IV NOW ONE Stop: 05/11/24 12:23 Last Infusion: 05/11/24 14:06 Dose: Infused Documented By: Admin: 05/11/24 13:31 Dose: 112 mls/hr Documented By: ISAI Vital Signs Vital signs: Vital Signs - 8 hr 05/11/24 11:53 05/11/24 11:55 05/11/24 11:55 Temperature Pulse Rate 128 H 115 H Respiratory Rate 19 Blood Pressure 147/69 H Pulse Oximetry 96 97 Oxygen Delivery Method Oxygen Flow Rate 05/11/24 11:58 05/11/24 12:00 05/11/24 12:01 Temperature 97.6 F Pulse Rate 122 H 126 H Respiratory Rate 20 25 H Blood Pressure 130/93 H 149/86 H Pulse Oximetry 97 98 Oxygen Delivery Method Room Air Oxygen Flow Rate 05/11/24 12:01 05/11/24 12:13 05/11/24 12:30 Temperature Pulse Rate 122 H 121 H 128 H Respiratory Rate 25 H 26 H 17 Blood Pressure Pulse Oximetry 99 98 97 Oxygen Delivery Method Room Air Oxygen Flow Rate 05/11/24 12:30 05/11/24 13:00 05/11/24 13:00 Temperature Pulse Rate 61 Respiratory Rate 22 Blood Pressure 143/91 H 131/62 Pulse Oximetry 93 Oxygen Delivery Method Oxygen Flow Rate 05/11/24 13:30 05/11/24 13:31 05/11/24 13:31 Temperature Pulse Rate 61 61 Respiratory Rate 16 24 Blood Pressure 151/68 H Pulse Oximetry 96 96 Oxygen Delivery Method Oxygen Flow Rate 05/11/24 14:00 05/11/24 14:01 05/11/24 14:01 Temperature Pulse Rate 65 67 Respiratory Rate 31 H 25 H Blood Pressure 143/116 H Pulse Oximetry 96 94 Oxygen Delivery Method Oxygen Flow Rate 05/11/24 14:30 05/11/24 14:31 05/11/24 14:31 Temperature Pulse Rate 59 L 59 L Respiratory Rate 18 21 Blood Pressure 170/70 H Pulse Oximetry 97 97 Oxygen Delivery Method Oxygen Flow Rate 05/11/24 15:00 05/11/24 15:01 05/11/24 15:01 Temperature Pulse Rate 59 L 60 Respiratory Rate 12 16 Blood Pressure 137/58 L Pulse Oximetry 100 99 Oxygen Delivery Method Oxygen Flow Rate 05/11/24 15:20 Temperature Pulse Rate 60 Respiratory Rate 18 Blood Pressure Pulse Oximetry 96 Oxygen Delivery Method Room Air Oxygen Flow Rate 0 Medical Decision Making Lab Data Lab results reviewed: Yes I reviewed the patient's lab results. 05/11/24 12:00 05/11/24 12:00 Labs: Lab Results 05/11/24 05/11/24 Range/Units 12:00 12:00 WBC 9.5 (4.5-11.0) X10^3/uL RBC 3.93 L (4.0-5.2) X10^6/uL Hgb 12.0 (12.0-16.0) g/dL Hct 36.5 (36-46) % MCV 92.8 (80-100) fL MCH 30.4 (26-34) PG MCHC 32.8 (30-36) % RDW 14.5 (11.6-14.8) % Plt Count 274 (150-400) X10^3/uL Neut % (Auto) 81.1 H (50-75) % Lymph % (Auto) 7.2 L (25-40) % [place] % (Auto) 7.5 (3-14) % Eos % (Auto) 3.7 (2-4) % Baso % (Auto) 0.5 (0-2) % Neut # (Auto) 7700 H (7898-4079) /uL Lymph # (Auto) 700 L (3732-5080) /uL [place] # (Auto) 700 (0-900) /uL Eos # (Auto) 300 (0-450) /uL Baso # (Auto) 0 (0-100) /uL PT 18.0 H (9.4-12.5) SECONDS INR 1.6 H (0.9-1.3) Sodium 140 (137-145) mmol/L Potassium 4.3 (3.4-5.1) mmol/L Chloride 106 (98-107) mmol/L Carbon Dioxide 28 (22-32) mmol/L BUN 16 (7-17) mg/dL Creatinine 1.22 H (0.52-1.04) mg/dL Estimated GFR 47 L (>60) mL/min BUN/Creatinine Ratio 13.1 (6-22) Glucose 117 H (80-110) mg/dL Lactate 1.2 (0.7-2.1) mmol/L Calcium 9.2 (8.4-10.2) mg/dL Total Bilirubin 0.6 (0.2-1.3) mg/dL AST 24 (14-36) IU/L ALT 17 (<35) IU/L Alkaline Phosphatase 86 (38-126) U/L Total Creatine Kinase 68 (30-135) U/L Troponin I Cancelled < 0.012 NT-Pro-B Natriuret Pep 3810 H (<125) pg/mL Total Protein 7.1 (6.3-8.2) g/dL Albumin 3.9 (3.5-5.0) g/dL Globulin 3.2 (1.7-4.1) g/dL Albumin/Globulin Ratio 1.2 (1.0-2.8) Imaging Data Chest x-ray: Radiologist's Impression: PROCEDURE: XR CHEST 1V INDICATIONS: Shortness of breath TECHNIQUE: One view of the chest was acquired. COMPARISON: [facility], CR, XR CHEST 2V, 08/28/2023, 15:45. [facility], CR, XR CHEST 2V, 12/21/2022, 18:05. [facility], CR, XR CHEST 1V, 11/14/2022, 7:53. FINDINGS: Surgical changes and devices: Stable upper left abdomen surgical clips. Lungs and pleura: Lungs are clear. Central pulmonary vascular prominence. No pleural effusions or pneumothorax. Mediastinum: Mediastinal contours appear normal. Heart is enlarged. Bones and chest wall: No suspicious bony lesions. Overlying soft tissues appear unremarkable. IMPRESSION: Cardiomegaly with central pulmonary vascular prominence concerning for mild CHF/fluid overload. ECG Data Attestation: I personally reviewed and interpreted this ECG as follows: Interpretation: Atrial fibrillation Ventricular rate [address] T wave changes MDM Narrative Medical decision making narrative: Patient is clinically in heart failure as she has bilateral lower extremity swelling, wheezing and states that she has been gaining weight over the past week. Her wheezing actually improved with breathing treatments. She was given Lasix. She did diurese. States she was feeling better. She has been on Lasix in the past but not on a regular basis. Afebrile. Low suspicion this is an infectious process. Her AFib actually improved. I do not think that AFib is her primary issue I suspect that it is the result of her heart failure. We will hold on cardioversion for now. She has no chest pain or palpitations. Will send home with a prescription for Lasix. We discussed its use. Will discharge patient home with return precautions. She expressed understanding and agreement with plan. Discharge Plan Departure Patient Disposition: Home Clinical Impression: CHF (congestive heart failure) Instructions: Congestive Heart Failure (Alternative Therapy), DI for Peripheral Edema -- Bilateral Activity Restrictions/Additional Instructions: Continue to take all of your medications as directed. Like we discussed I would recommend that you take the furosemide/Lasix on a daily basis for the next couple days. After that you can take it as needed. If your symptoms continue to worsen despite this then please return to the emergency department for further evaluation. Contact your primary doctor for a follow-up. Prescriptions: New furosemide [Lasix] 20 mg tablet 20 mg PO DAILY 21 Days Qty: 21 0RF No Action amiodarone 200 mg tablet 200 mg PO DAILY Qty: 90 3RF (DME) Disabled Parking Permint See Rx Instructions .ROUTE .MEDSUPPLY Qty: 1 0RF Rx Instructions: I find this patient to be medically disabled and qualified for Disabled Parking as indicated and signed on the Accompanying Disabled Parking Application for individuals. pantoprazole 40 mg tablet,delayed release (DR/EC) 40 mg PO BID 30 Days Qty: 90 3RF escitalopram oxalate 5 mg tablet 5 mg PO DAILY Qty: 90 1RF albuterol sulfate 90 mcg/actuation HFA aerosol inhaler 2 puff PO Q4H PRN (Reason: shortness of breath or wheezing) Qty: 8.5 11RF pramipexole 0.125 mg tablet 0.125 mg PO ONCE PM Qty: 30 1RF ipratropium-albuterol 0.5 mg-3 mg(2.5 mg base)/3 mL solution for nebulization 3 ml inhalation Q6H PRN (Reason: shortness of breath or wheezing) Qty: 90 0RF metoprolol succinate 50 mg tablet extended release 24 hr 50 mg PO BID fluticasone propion-salmeterol [Advair Diskus] 100-50 mcg/dose blister with device 1 ea inhalation BID apixaban 5 mg Tablet 5 mg PO BID nifedipine 60 mg tablet extended release 24hr 60 mg PO QPM (DME) nebulizer and compressor Device See Rx Instructions .Route Qty: 1 0RF Rx Instructions: As directed Referrals: Stu Carrion DO [Primary Care Provider] - Stand Alone Forms: Patient Portal/API/Survey
[2024-05-11 12:23] LABS: Lactate (Lactic Acid) 1.2 mmol/L (0.7-2.1)
[2024-05-11 12:24] LABS: Alanine Aminotransferase 17 IU/L (<35); Albumin 3.9 g/dL (3.5-5.0); Albumin Globulin Ratio 1.2 (1.0-2.8); Alkaline Phosphatase 86 U/L (38-126); Aspartate Aminotransferase 24 IU/L (14-36); BUN Creatinine Ratio 13.1 (6-22); Bilirubin Total 0.6 mg/dL (0.2-1.3); Blood Urea Nitrogen 16 mg/dL (7-17); Calcium 9.2 mg/dL (8.4-10.2); Carbon Dioxide 28 mmol/L (22-32); Chloride 106 mmol/L (98-107); Creatine Kinase 68 U/L (30-135); Estimated Glomerular Filt Rate 47 mL/min (>60); Globulin 3.2 g/dL (1.7-4.1); Glucose 117 mg/dL (80-110); HEMOLYSIS < 15 (0-50); Potassium 4.3 mmol/L (3.4-5.1); Sodium 140 mmol/L (137-145); Total Protein 7.1 g/dL (6.3-8.2)
[2024-05-11 12:34] LABS: NT-proBNP (BNP-Adult 18+) 3810 pg/mL (<125)
[2024-05-11 12:35] LABS: Troponin I < 0.012 ng/mL (0.01-0.034)
[2024-05-11] MEDS: FUROSEMIDE 60 MG in SODIUM CHLORIDE 0.9% 50 ML 112 MG IV (13:31)
[2024-05-11] MEDS: ALBUTEROL 2.5 MG/3 ML NEB (ADULT) INH (14:53)
== END 2024-05-11 15:32 | disposition home or self-care (01) ==
PROVIDERS: Emergency Provider Emergency Medicine; PCP Family Medicine
DX: I50.9 Heart failure, unspecified (principal); R06.02 Shortness of breath; R06.2 Wheezing; R63.5 Abnormal weight gain; Z79.01 Long term (current) use of anticoagulants
CPT/HCPCS: 36415; 71045; 80053; 82550; 83605; 83880; 84484; 85025; 85610; 93005; 94640; 96365; 99284; J1940; J7613

== ENCOUNTER → 2024-07-14 12:02 | Outpatient (CLI) | payer MEDICARE, OTHER, SELFPAY ==
[2023-08-28 18:31] VITALS: BMI 34.6
--- NOTE | 2024-07-14 12:07 | DI.ECHO.S_ITS ---
[facility] : : [address] : [place] : : [id number] : : Phone: [phone] Echocardiogram Report + + :Name: MAKENZIE COVARRUBIAS Study Date: 07/14/2024 Height: 64 in : :[facility] ReadingLocation: Weight: 220 lb : : Gender: Female BSA: 2.0 m2 : :: 1950 Age: 73 yrs BP: 147/84 mmHg: :Reason For Study: CONGESTIVE HEART FAILURE : :Ordering Physician: RAAD, : :HERRERA Performed By: Naren De Anda : :Referring: HERRERA SHANKAR : + + Interpretation Summary The patient was in sinus bradycardia with heart rates between 45-50 bpm during the exam. Left ventricular wall thickness is mildly increased. The ejection fraction is estimated to be 55-60%. Grade II diastolic dysfunction. The left atrium is severely dilated. The right ventricle is mildly dilated. The right ventricular systolic function is normal. The right atrium is mildly dilated. There is mild to moderate mitral regurgitation. There is mild aortic stenosis. Pulmonary artery pressures cannot be estimated because of the lack of a measurable TR jet velocity but the IVC suggests a CVP of around 3 mmHg. Compared to the prior study 01/29/2023, no significant change. Procedure: A two-dimensional transthoracic echocardiogram with color flow and Doppler was performed. The study quality was technically adequate. Comparison is made with the echocardiogram of 01/29/2023. The patient was in sinus bradycardia with heart rates between 45-50 bpm during the exam. Left Ventricle: The left ventricle is normal in size. Left ventricular wall thickness is mildly increased. Proximal septal thickening is noted. There is no ventricular septal defect visualized. The ejection fraction is estimated to be 55-60%. There are no focal wall motion abnormalities. Diastolic parameters suggest a pseudonormalization pattern, consistent with probable elevated filling pressures. Right Ventricle: The right ventricle is mildly dilated. The right ventricular systolic function is normal. Atria: The left atrium is severely dilated. The right atrium is mildly dilated. There is no Doppler evidence for an atrial septal defect. Mitral Valve: There is moderate mitral annular calcification. The mitral valve leaflets appear mildly thickened, but open well. The mitral valve leaflets are moderately calcified. There is mild to moderate mitral regurgitation. Aortic Valve: The aortic valve is moderately calcified. There is mild aortic stenosis. The peak aortic velocity is 2.35 m/sec. The aortic valve mean gradient is 10.7 mmHg. The calculated aortic valve area is 1.5 cm2. There is mild aortic regurgitation. Tricuspid Valve: The tricuspid valve leaflets are thin and pliable. There is trace tricuspid regurgitation. Pulmonary artery pressures cannot be estimated because of the lack of a measurable TR jet velocity but the IVC suggests a CVP of around 3 mmHg. Pulmonic Valve: The pulmonic valve is not well visualized. There is no pulmonic valvular regurgitation. Great Vessels: The aortic root is normal size. The dimensions of the ascending aorta are normal. The pulmonary artery is normal size. The IVC is of normal diameter and collapses greater than 50% with a sniff. This suggests a low right atrial pressure of 3 mm Hg. Pericardium/ Pleura There is no pericardial effusion. There is no pleural effusion. MMode/2D Measurements & Calculations LVIDd: 4.8 cm LVOT diam: 2.0 cm LVIDs: 3.4 cm Ao root diam: 2.9 cm FS: 29.0 % asc Aorta Diam: 3.2 cm IVSd: 1.4 cm Ao Arch Diam (Prox Trans): 2.1 cm LVPWd: 1.2 cm LV lord. diameter/BSA (cm/m^2): 2.4 LV sys. diameter/BSA (cm/m^2): 1.7 LA A2 area: 31.1 cm2 RA long axis: 5.3 cm LA A4 area: 28.0 cm2 RA area: 16.9 cm2 LA length (vol): 6.8 cm RA vol: 45.6 ml LA vol: 108.9 ml RA : 22.4 ml/m2 LA vol index: 53.5 ml/m2 IVC diam: 2.0 cm RVD1 (basal): 4.4 cm RVD2 (mid): 3.4 cm TAPSE: 2.6 cm Doppler Measurements & Calculations Ao V2 max: 234.5 cm/sec LVOT Max Dave: 105.7 cm/sec Ao V2 mean: 154.6 cm/sec LV V1 max P.5 mmHg Ao max P.0 mmHg LV V1 VTI: 31.3 cm Ao mean P.7 mmHg SHANTANU(I,D): 1.6 cm2 Ao V2 VTI: 63.6 cm SHANTANU(V,D): 1.5 cm2 sev ratio: 0.49 SHANTANU indexed to BSA (cm^2/m^2): 0.78 AI P1/2t: 738.1 msec AI dec slope: 161.6 cm/sec2 MV E max dave: 160.2 cm/sec TR max dave: 245.2 cm/sec MV A max dave: 94.3 cm/sec TR max P.1 mmHg MV E/A: 1.7 PA V2 max: 90.3 cm/sec Med Peak E' Dave: 4.9 cm/sec PA V2 mean: 63.9 cm/sec E/E' med: 32.4 PA mean P.8 mmHg Lat Peak E' Dave: 8.1 cm/sec PA pr(Accel): -4.9 mmHg E/E' lat: 19.8 E/e' average: 26.1 MV dec time: 0.22 sec MVA(VTI): 1.5 cm2 MV V2 mean: 84.2 cm/sec SV(LVOT): 101.1 ml MV mean P.6 mmHg MV V2 VTI: 69.5 cm Reading Physician:12:49 PM
--- NOTE | 2024-07-14 12:07 | DI.CT.S_ITS ---
PROCEDURE: CT CHEST WO CON INDICATIONS: document resolution of infiltrates TECHNIQUE: Noncontrast 5 mm thick sections acquired from the pulmonary apices to the posterior costophrenic angles. 1 mm lung window, 5 mm thick coronal and sagittal and 7 mm axial MIP reformats were then acquired. For radiation dose reduction, the following was used: automated exposure control, adjustment of mA and/or kV according to patient size. COMPARISON: [facility], CT, CT CHEST WO CON, 09/01/2023, 11:26. FINDINGS: Image quality: Diagnostic. Lower Neck: No enlarged lymph nodes. Thyroid: No thyroid nodules which require sonographic follow up, per consensus guidelines. Axillae: No enlarged lymph nodes. Chest Wall: Unremarkable. Bones: Unremarkable. Lungs and Pleura: No pneumothorax or pleural effusions. No consolidation or suspicious nodules. Heart: Heart size is normal. No pericardial effusion. Thoracic Vessels: The aorta and pulmonary arteries demonstrate normal size. Mediastinum and Kayleigh: No enlarged lymph nodes. Esophagus: No wall thickening. No hiatal hernia. Upper Abdomen: Visualized upper abdomen solid organs and bowel loops appear normal. IMPRESSION: Resolution of alveolar infiltration, no mass lesion found. Dictated by: Jr Blount M.D. on 07/14/2024 at 14:47 Approved by: Jr Blount M.D. on 07/14/2024 at 15:12
[2024-07-14 13:23] LABS: Hemoglobin A1C% w Est Avg Glu 5.1 % (4.0-6.0)
[2024-07-14 13:43] LABS: Alanine Aminotransferase 22 IU/L (<35); Albumin 4.5 g/dL (3.5-5.0); Albumin Globulin Ratio 1.6 (1.0-2.8); Alkaline Phosphatase 63 U/L (38-126); Aspartate Aminotransferase 33 IU/L (14-36); BUN Creatinine Ratio 20.9 (6-22); Bilirubin Total 0.5 mg/dL (0.2-1.3); Blood Urea Nitrogen 39 mg/dL (7-17); Calcium 9.9 mg/dL (8.4-10.2); Carbon Dioxide 33 mmol/L (22-32); Chloride 100 mmol/L (98-107); Estimated Glomerular Filt Rate 28 mL/min (>60); Globulin 2.8 g/dL (1.7-4.1); Glucose 109 mg/dL (80-110); HEMOLYSIS < 15 (0-50); Potassium 4.3 mmol/L (3.4-5.1); Sodium 139 mmol/L (137-145); Total Protein 7.3 g/dL (6.3-8.2)
== END ==
PROVIDERS: PCP Family Medicine; Referring Provider Internal Medicine; Visit Provider Internal Medicine
DX: J45.41 Moderate persistent asthma with (acute) exacerbation (principal); I48.91 Unspecified atrial fibrillation; J18.9 Pneumonia, unspecified organism; I08.0 Rheumatic disorders of both mitral and aortic valves; N18.9 Chronic kidney disease, unspecified; I50.9 Heart failure, unspecified; R73.03 Prediabetes; Z79.899 Other long term (current) drug therapy
CPT/HCPCS: 36415; 71250; 80053; 83036; 93306

== ENCOUNTER → 2024-08-21 12:29 | Outpatient (CLI) | payer MEDICARE, OTHER, SELFPAY ==
[2023-08-28 18:31] VITALS: BMI 34.6
[2024-08-21 13:37] LABS: Add Manual Diff / Slide Review NO; Basophils Absolute Auto 100 /uL (0-100); Basophils Percent Auto 1.1 % (0-2); Eosinophils Absolute Auto 100 /uL (0-450); Eosinophils Percent Auto 2.2 % (2-4); Hematocrit 40.2 % (36-46); Hemoglobin 13.3 g/dL (12.0-16.0); Lymphocytes Absolute Auto 900 /uL (1100-4500); Lymphocytes Percent Auto 16.7 % (25-40); Mean Corpuscular Hemoglobin 29.4 PG (26-34); Mean Corpuscular Volume 88.9 fL (80-100); Monocytes Absolute Auto 300 /uL (0-900); Monocytes Percent Auto 5.6 % (3-14); Neutrophils Absolute Auto 4200 /uL (1500-7000); Neutrophils Percent Auto 74.4 % (50-75); Platelet Count 230 X10^3/uL (150-400); Red Blood Cell Count 4.52 X10^6/uL (4.0-5.2); Red Cell Distribution Width 17.1 % (11.6-14.8); White Blood Cell Count 5.6 X10^3/uL (4.5-11.0)
[2024-08-21 14:03] LABS: Alanine Aminotransferase 29 IU/L (<35); Albumin 4.2 g/dL (3.5-5.0); Albumin Globulin Ratio 1.4 (1.0-2.8); Alkaline Phosphatase 83 U/L (38-126); Aspartate Aminotransferase 40 IU/L (14-36); BUN Creatinine Ratio 18.6 (6-22); Bilirubin Total 0.4 mg/dL (0.2-1.3); Blood Urea Nitrogen 26 mg/dL (7-17); Calcium 9.2 mg/dL (8.4-10.2); Carbon Dioxide 29 mmol/L (22-32); Chloride 103 mmol/L (98-107); Estimated Glomerular Filt Rate 39 mL/min (>60); Glucose 95 mg/dL (80-110); HEMOLYSIS < 15 (0-50); Potassium 4.4 mmol/L (3.4-5.1); Sodium 138 mmol/L (137-145); Total Protein 7.2 g/dL (6.3-8.2)
[2024-08-21 18:08] LABS: Free T4, Direct Thyroxine 0.97 ng/dL (0.78-2.19)
== END ==
PROVIDERS: PCP Family Medicine; Referring Provider Nurse Practitioner Acute Care; Visit Provider Nurse Practitioner Acute Care
DX: I48.91 Unspecified atrial fibrillation (principal); Z79.899 Other long term (current) drug therapy; D64.9 Anemia, unspecified; D72.829 Elevated white blood cell count, unspecified; E87.5 Hyperkalemia; N18.9 Chronic kidney disease, unspecified; I50.9 Heart failure, unspecified; I13.0 Hypertensive heart and chronic kidney disease with heart failure and stage 1 through stage 4 chronic kidney disease, or unspecified chronic kidney disease
CPT/HCPCS: 80053; 84439; 84443; 85025

== ENCOUNTER → 2024-11-01 12:39 | Outpatient (CLI) | payer MEDICARE, OTHER, SELFPAY ==
[2023-08-28 18:31] VITALS: BMI 34.6
--- NOTE | 2024-11-10 08:05 | DI.NM.S_ITS ---
DATE OF SERVICE: 11/01/2024 NUCLEAR CARDIOLOGY MYOCARDIAL PERFUSION STUDY PROCEDURE: Pharmacologic vasodilator stress and rest myocardial perfusion imaging with gating to assess ejection fraction and regional wall motion. ORDERING PROVIDER: Ignacia Goldberg M.D. INDICATIONS: The patient is a 74-year-old female with paroxysmal atrial fibrillation and a history of cardiomyopathy. CARDIAC STRESS: Per protocol, 0.4 mg of regadenoson was infused with a normal hemodynamic response. She had no chest discomfort or other anginal symptoms. Her resting ECG shows sinus rhythm with normal ST segments. There are no significant ST-segment shifts or arrhythmias with stress. Per protocol, 26.9 millicuries of technetium-99m Myoview was injected and she was imaged 15 minutes later using a gated SPECT acquisition protocol. Eight days earlier while at rest, she had been injected with 26.2 millicuries of technetium-99m Myoview and was imaged 15 minutes later, again using a gated SPECT acquisition protocol. FINDINGS: 1. Raw data. There is fair myocardial tracer uptake but clear breast attenuation artifact on both stress and rest images. The lung/heart ratio is normal at 0.25 with a TID ratio at the upper limits of normal at 1.22. 2. Quantitated gated SPECT: Post-stress ejection fraction is 70% without any focal wall motion abnormality and specifically the distal inferior wall has normal contractility. The resting ejection fraction is 69% with moderately increased end-diastolic volumes of 160 mL. The right ventricular free wall has increased tracer uptake which can be a sign of a right ventricular overload condition but clinical correlation is needed. 3. Myocardial perfusion imaging: Post-stress supine images show a fairly normal myocardial perfusion pattern except for a very small, subtle defect in the very distal inferior wall but sparing the apex in a pattern consistent with diaphragmatic attenuation artifact but the patient was unable to lie prone to assess for this. The resting images show a similar perfusion pattern but with slight improvement in the distal inferior defect. IMPRESSION: 1. Probable normal myocardial perfusion study and low risk. 2. Small, focal, partially reversible perfusion defect in the distal inferior wall likely from diaphragmatic attenuation but there is no prone imaging to assess for this. While a previous nontransmural infarction with mild nicol-infarct ischemia cannot be entirely excluded, the absence of any wall motion abnormality in this distribution mitigates against this. Even if present, the volume of ischemia involved would be minimal. 3. Normal left ventricular systolic function with moderately increased volumes. There is mildly increased tracer uptake in the right ventricular free wall which can be a sign of right ventricular overload but clinical correlation is recommended. 4. No angina or ECG evidence of ischemia with pharmacologic vasodilator stress. She remained in sinus rhythm throughout. Suzi Nelson - FARZAD/helen/JOAQUIN doc#: [id number]/job#: [id number] dd: 11/09/2024 17:10:00 dt: 11/09/2024 19:34:00 DICTATING MD/COPIES TO: Hernando Britton MD; Ignacia Goldberg M.D. COPIES MNE: SAMI;
== END ==
PROVIDERS: PCP Family Medicine; Referring Provider Internal Medicine Cardiovascular Disease; Visit Provider Internal Medicine Cardiovascular Disease
DX: I48.0 Paroxysmal atrial fibrillation (principal); I10 Essential (primary) hypertension; M85.89 Other specified disorders of bone density and structure, multiple sites
CPT/HCPCS: 77080; 78452; 93017; A9502; J2785

== ENCOUNTER → 2024-11-01 12:55 | Outpatient (CLI) | payer MEDICARE, OTHER, SELFPAY ==
[2023-08-28 18:31] VITALS: BMI 34.6
--- NOTE | 2024-11-01 12:58 | DI.RAD.S_ITS ---
PROCEDURE: XR DEXA AXIAL SKELETON INDICATIONS: routine screening COMPARISON: None. FINDINGS: Lumbar Spine: Bone mineral density 1.095 g/cm2, T score 0.2. Left Forearm: Bone mineral density 0.508 g/cm2, T score -3.1. Fracture Risk Calculation (when applicable): Not applicable. (T score greater or equal to -1.0 to: NORMAL) (T score from -1.1 to -2.4: OSTEOPENIA) (T score less than or equal to -2.5: OSTEOPOROSIS) IMPRESSION: Osteoporosis. Follow-up guidelines as follows: Osteoporosis: Consider a repeat DEXA and Vertebral Fracture Assessment (VFA) exam in 2 years or sooner if medically necessary, to reassess this patient's status. Osteopenia: Consider a repeat DEXA in 2-3 years to reassess this patient's status, or if there is a new clinical indication. Normal: Consider a repeat DEXA in 5 years or sooner, or if there is a new clinical indication. All treatment decisions require clinical judgment and consideration of individual patient factors, including patient preferences, comorbidities, previous drug use, risk factors not captured in the FRAX model (e.g., frailty, falls, vitamin D deficiency, increased bone turnover, interval significant decline in bone density ) and possible under- or over-estimation of fracture risk by FRAX. In addition, the NOF Guide recommends that FDA-approved medical therapies be considered in postmenopausal women and men age >= 50 years with a: * Hip or vertebral (clinical or morphometric) fracture * T-score of <=-2.5 at the spine or hip * Ten-year fracture probability by FRAX of >= 3% for hip fracture or >=20% for major osteoporotic fracture. Dictated by: Marcus Jang M.D. on 11/01/2024 at 14:52 Approved by: Marcus Jang M.D. on 11/01/2024 at 14:58
== END ==
PROVIDERS: PCP Family Medicine; Referring Provider Family Medicine; Visit Provider Family Medicine
DX: M81.0 Age-related osteoporosis without current pathological fracture (principal)
CPT/HCPCS: 77080

== ENCOUNTER → 2024-11-09 11:54 | Outpatient (CLI) | payer MEDICARE, OTHER, SELFPAY ==
[2023-08-28 18:31] VITALS: BMI 34.6
--- NOTE | 2024-11-09 13:24 | DI.MG.S_ITS ---
MM screening mammo BI: 11/09/2024. BI-RADS: 1 CLINICAL: 74-year old female for bilateral screening mammogram. Tyrer-Cuzick lifetime risk of 2.3%. No personal or first-degree family history of breast cancer. PRIOR EXAMS: 11/09/2018, 09/08/2017, 09/07/2016. MAMMOGRAPHY TECHNIQUE: 2D and 3D (tomosynthesis) digital mammographic views obtained, with additional images as needed for full coverage. Current study was also evaluated with a Computer Aided Detection (CAD) system. DENSITY B. There are scattered areas of fibroglandular density. MAMMOGRAPHY FINDINGS Bilateral: No suspicious mass, asymmetry, microcalcification, or other abnormality seen. IMPRESSION: * No evidence of malignancy. RECOMMENDATIONS Bilateral * Annual screening mammography. OVERALL ASSESSMENT CATEGORY BI-RADS-1: Negative. The [employer] recommends annual screening mammography beginning at age 40 for women with average risk of breast cancer. ELECTRONICALLY SIGNED: Tabby Cho M.D. on 11/13/2024 at 01:01:33 AM PT Interpreting Station ID: [id number]
== END ==
PROVIDERS: PCP Family Medicine; Referring Provider Family Medicine; Visit Provider Family Medicine
DX: Z12.31 Encounter for screening mammogram for malignant neoplasm of breast (principal)
CPT/HCPCS: 77063; 77067

== ENCOUNTER → 2024-12-26 16:01 | Outpatient (CLI) | payer MEDICARE, OTHER, SELFPAY ==
[2023-08-28 18:31] VITALS: BMI 34.6
[2024-12-26 18:20] LABS: Free T4, Direct Thyroxine 1.47 ng/dL (0.78-2.19)
[2024-12-26 18:35] LABS: Thyroid Stimulating Hormone 3.00 uIU/mL (0.47-4.68)
== END ==
PROVIDERS: PCP Family Medicine; Referring Provider Family Medicine; Visit Provider Family Medicine
DX: I10 Essential (primary) hypertension (principal); E03.9 Hypothyroidism, unspecified
CPT/HCPCS: 36415; 84439; 84443